=== PATIENT | male | born 1955 | race Caucasian/White ===

== ENCOUNTER 2016-10-31 06:55 | Inpatient (IN) | payer MEDICAID, OTHER ==
[2016-10-31] MEDS ORDERED: Morphine 4 mg/ml ISec IVP STA (07:43)
[2016-10-31] MEDS ORDERED: Sodium Chloride 0.9% 500 ML IV STA (07:43)
--- NOTE | 2016-10-31 07:46 | ED PDOC ---
Arrival/HPI - General Chief Complaint: Abdominal Pain Time Seen by Provider: 10/31/16 07:32 Historian: Patient - History of Present Illness Narrative History of Present Illness (Text): 10/31/16 07:40 Yareli Hendrix is a 60 year old male whose past medical history includes diabetes, presents to the Emergency department complaining of diffused abdominal pain for the past two days. Patient reports the pain is intermittent and becomes worse after eating. Patient denies chest pain, shortness of breath, headache, fever, chills, cough, nausea, vomiting, diarrhea, changes in bowel habits, dysuria, hematuria, frequency, flank pain, testicular pain or penile discharge. PMD: Dr. Bhakta Time/Duration: < week (2 days) Symptom Onset: Sudden Symptom Course: Intermittent Modifying Factors (Text): Pain is worse after eating Associated Symptoms (Text): None Past Medical History - Provider Review Nursing Documentation Reviewed: Yes - Infectious Disease Hx of Infectious Diseases: None - Neurological Hx Dementia: Yes - Endocrine/Metabolic Hx Diabetes Mellitus Type 1: Yes - Psychiatric Hx Depression: No Hx Emotional Abuse: No Hx Physical Abuse: No Hx Substance Use: No - Past Surgical History Past Surgical History: No Previous - Suicidal Assessment Feels Threatened In Home Enviroment: No Family/Social History - Physician Review Nursing Documentation Reviewed: Yes Family/Social History: Unknown Family HX Smoking Status: Never Smoked Hx Alcohol Use: No Hx Substance Use: No Allergies/Home Meds Allergies/Adverse Reactions: Allergies No Known Allergies Allergy (Verified 10/31/16 07:36) Home Medications: Home Meds Medication Instructions Recorded Confirmed Gabapentin [Neurontin] 500 mg PO TID 10/31/16 10/31/16 Metformin HCl [Glucophage] 1,500 mg PO DAILY 10/31/16 10/31/16 Review of Systems - Review of Systems Constitutional: absent: Fevers Eyes: absent: Vision Changes ENT: absent: Rhinorrhea Respiratory: absent: SOB Cardiovascular: absent: Chest Pain Gastrointestinal: Abdominal Pain. absent: Stool Changes, Diarrhea, Vomiting Genitourinary Male: absent: Dysuria Musculoskeletal: absent: Back Pain Neurological: absent: Headache Endocrine: absent: Diaphoresis Psychiatric: absent: Anxiety Physical Exam Vital Signs Temp Pulse Resp BP Pulse Ox 10/31/16 07:33 98.2 F 94 H 16 149/99 H 99 Temperature: Afebrile Blood Pressure: Hypertensive Pulse: Tachycardic Respiratory Rate: Normal Appearance: Positive for: Well-Appearing, Non-Toxic, Comfortable Pain Distress: None Mental Status: Positive for: Alert and Oriented X 3 - Systems Exam Head: Present: Atraumatic, Normocephalic Pupils: Present: PERRL Extroacular Muscles: Present: EOMI Conjunctiva: Present: Normal Mouth: Present: Moist Mucous Membranes Neck: Present: Normal Range of Motion Respiratory/Chest: Present: Clear to Auscultation, Good Air Exchange. No: Respiratory Distress, Accessory Muscle Use Cardiovascular: Present: Regular Rate and Rhythm, Normal S1, S2. No: Murmurs Abdomen: Present: Tenderness (RUQ and RLQ), Normal Bowel Sounds. No: Distention , Peritoneal Signs, Rebound, Guarding Upper Extremity: Present: Normal Inspection. No: Cyanosis, Edema Lower Extremity: Present: Normal Inspection. No: Edema Neurological: Present: GCS=15, CN II-XII Intact, Speech Normal Skin: Present: Warm, Dry, Normal Color. No: Rashes Psychiatric: Present: Alert, Oriented x 3, Normal Insight, Normal Concentration Medical Decision Making ED Course and Treatment: 10/31/16 07:40 Impression: 60 year old male with diffuse abdominal pain. Differential Diagnosis included but are not limited to: pancreatitis vs. appendicitis vs. small bowel obstruction vs. UTI Plan: -- EKG -- CT Abdomen and Pelvis -- Labs -- Urinalysis -- Morphine, Zofran, and Sodium Chloride -- Reassess and disposition Progress Notes: EKG: Ordered, reviewed, and independently interpreted the EKG. Rate : 91 BPM Rhythm : NSR Interpretation : Left anterior fascicular block. 10/31/16 10:10 CT Abdomen and Pelvis with contrast: Creator : Triston Reyez MD FINDINGS: LOWER THORAX: Unremarkable. LIVER: Unremarkable. No gross lesion or ductal dilatation. GALLBLADDER AND BILE DUCTS: Unremarkable. PANCREAS: Unremarkable. No gross lesion or ductal dilatation. SPLEEN: Unremarkable. ADRENALS: Unremarkable. No mass. KIDNEYS AND URETERS:Unremarkable. No hydronephrosis. No solid mass. VASCULATURE: Unremarkable. No aortic aneurysm. BOWEL: Unremarkable. No obstruction. No gross mural thickening. APPENDIX: Normal appendix. PERITONEUM: Unremarkable. No free fluid. No free air. LYMPH NODES: Unremarkable. No enlarged lymph nodes. BLADDER: Unremarkable. REPRODUCTIVE: Unremarkable. BONES: No acute fracture. OTHER FINDINGS: None. IMPRESSION: No acute finding 10/31/16 10:[address] Monk who is aware of plan and accepts patient to med/ sx for pancreatitis. - Lab Interpretations Lab Results: 10/31/16 08:00 10/31/16 08:00 Lab Results 10/31/16 10:00: Urine Color Straw, Urine Appearance Clear, Urine pH 6.5, Ur Specific [place] <= 1.005, Urine Protein Negative, Urine Glucose (UA) 100 H, Urine Ketones Negative, Urine Blood Small H, Urine Nitrate Negative, Urine Bilirubin Negative, Urine Urobilinogen 0.2, Ur Leukocyte Esterase Negative, Urine RBC 1 - 3, Urine WBC Negative, Ur Epithelial Cells 0 - 2, Urine Bacteria Neg 10/31/16 08:00: Sodium 138, Potassium 4.0, Chloride 101, Carbon Dioxide 27, Anion Gap 14, BUN 17, Creatinine 0.8, Est GFR ( Amer) > 60, Est GFR (Non- Af Amer) > 60, Random Glucose 242 H, Calcium 10.9 H, Phosphorus 2.4 L, Magnesium 1.9, Total Bilirubin 0.5, AST 19, ALT 24, Alkaline Phosphatase 76, Total Protein 7.5, Albumin 4.3, Globulin 3.2, Albumin/Globulin Ratio 1.3, Lipase 2379 H 10/31/16 08:00: WBC 8.2, RBC 5.24, Hgb 14.4, Hct 42.2, MCV 80.5, MCH 27.5, MCHC 34.1, RDW 13.5, Plt Count 189, MPV 10.7, Gran % 70.4 H, Lymph % (Auto) 20.1 L, [place] % (Auto) 7.4 H, Eos % (Auto) 1.9, Baso % (Auto) 0.2, Gran # 5.78, Lymph # 1.7, [place] # 0.6, Eos # 0.2, Baso # 0.02 I have reviewed the lab results: Yes - RAD Interpretation Radiology Orders: 10/31/16 07:46 ABD & PELVIS IV CONTRAST ONLY [CT] Stat Aids Nurse: Radiologist - EKG Interpretation Interpreted by ED Physician: Yes Type: 12 lead EKG - Medication Orders Current Medication Orders: Discontinued Medications Home Med (*Refrigerator Open) Confirm Administered Dose 1 unit XX .STK-MED ONE Stop: 10/31/16 07:16 Sodium Chloride (Sodium Chloride 0.9%) 500 mls @ 999 mls/hr IV .Q31M STA Stop: 10/31/16 08:13 Last Admin: 10/31/16 07:51 Dose: 999 mls/hr Iohexol (Omnipaque 350 100 Ml) Confirm Administered Dose 350 mg .ROUTE .STK-MED ONE Stop: 10/31/16 08:51 Morphine Sulfate (Morphine) 4 mg IVP STAT STA Stop: 10/31/16 07:44 Last Admin: 10/31/16 07:52 Dose: 4 mg Ondansetron HCl (Zofran Inj) 4 mg IVP STAT STA Stop: 10/31/16 07:44 Last Admin: 10/31/16 07:51 Dose: 4 mg - Scribe Statement The provider has reviewed the documentation as recorded by the Scribe 10/31/2016 Hannah Pro Provider Adileneibclifton Attestation: All medical record entries made by the Adileneibclifton were at my direction and personally dictated by me. I have reviewed the chart and agree that the record accurately reflects my personal performance of the history, physical exam, medical decision making, and the department course for this patient. I have also personally directed, reviewed, and agree with the discharge instructions and disposition. Disposition/Present on Arrival - Present on Arrival Any Indicators Present on Arrival: No History of DVT/PE: No History of Uncontrolled Diabetes: No Urinary Catheter: No History of Decub. Ulcer: No History Surgical Site Infection Following: None - Disposition Have Diagnosis and Disposition been Completed?: Yes Diagnosis: Pancreatitis Disposition: HOSPITALIZED Disposition Time: 10:20 Patient Plan: Admission Condition: GOOD
[2016-10-31 08:22] LABS: BASO # 0.02 K/mm3 (0.0-2.0); BASO % 0.2 % (0.0-3.0); EOS # 0.2 (0.0-0.7); EOS % 1.9 % (1.5-5.0); GRAN # 5.78 (1.4-6.5); GRAN % 70.4 % (50.0-68.0); HEMOGLOBIN 14.4 g/dL (14.0-18.0); LYMPH # 1.7 (1.2-3.4); LYMPH % 20.1 % (22.0-35.0); MEAN CELL VOLUME 80.5 fl (80.0-105.0); MEAN CORPUSCULAR HEMOGLOBIN 27.5 pg (25.0-35.0); MEAN CORPUSCULAR HGB CONC 34.1 g/dl (31.0-37.0); MEAN PLATELET VOLUME 10.7 fl (7.0-11.0); MONO # 0.6 (0.1-0.6); MONO % 7.4 % (1.0-6.0); PLATELET COUNT 189 10^3/uL (120.0-450.0); RBC 5.24 10^6/uL (3.5-6.1); RED CELL DISTRIBUTION WIDTH 13.5 % (11.5-14.5); WHITE BLOOD COUNT 8.2 10^3/ul (4.5-11.0)
[2016-10-31 08:29] LABS: ALB/GLOB RATIO 1.3 (1.1-1.8); ALBUMIN 4.3 g/dL (3.0-4.8); ALT/SGPT 24 U/L (7-56); AST/SGOT 19 U/L (15-59); BLOOD UREA NITROGEN 17 mg/dL (7-21); CALCIUM 10.9 mg/dL (8.4-10.5); GFR AFRICAN-AMERICAN > 60; GFR NON-AFRICAN AMERICAN > 60; MAGNESIUM 1.9 mg/dL (1.7-2.2)
[2016-10-31 08:36] LABS: LIPASE 2379 U/L (23-300)
[2016-10-31] MEDS ORDERED: Iohexol 350 MG/100 ML VIAL ONE (08:50)
--- NOTE | 2016-10-31 10:07 | CT ---
PROCEDURE: CT Abdomen and Pelvis with contrast HISTORY: abdominal pain COMPARISON: None. TECHNIQUE: Contrast dose: 100 cc of Omni 350 Radiation dose: Total exam DLP = 424 mGy-cm. This CT exam was performed using one or more of the following dose reduction techniques: Automated exposure control, adjustment of the mA and/or kV according to patient size, and/or use of iterative reconstruction technique. FINDINGS: LOWER THORAX: Unremarkable. LIVER: Unremarkable. No gross lesion or ductal dilatation. GALLBLADDER AND BILE DUCTS: Unremarkable. PANCREAS: Unremarkable. No gross lesion or ductal dilatation. SPLEEN: Unremarkable. ADRENALS: Unremarkable. No mass. KIDNEYS AND URETERS: Unremarkable. No hydronephrosis. No solid mass. VASCULATURE: Unremarkable. No aortic aneurysm. BOWEL: Unremarkable. No obstruction. No gross mural thickening. APPENDIX: Normal appendix. PERITONEUM: Unremarkable. No free fluid. No free air. LYMPH NODES: Unremarkable. No enlarged lymph nodes. BLADDER: Unremarkable. REPRODUCTIVE: Unremarkable. BONES: No acute fracture. OTHER FINDINGS: None. IMPRESSION: No acute finding
[2016-10-31 10:17] LABS: PH,URINE 6.5 (4.7-8.0); URINE BILIRUBIN NEGATIVE (NEGATIVE); URINE BLOOD SMALL (NEGATIVE); URINE GLUCOSE (UA) 100 mg/dL (NEGATIVE); URINE LEUKOCYTE ESTERASE NEGATIVE Leu/uL (NEGATIVE); URINE NITRATE NEGATIVE (NEGATIVE); URINE PROTEIN NEGATIVE mg/dL (<30 mg/dL); URINE UROBILINOGEN 0.2 E.U./dL (<1 E.U./dL)
[2016-10-31 10:18] LABS: URINE APPEARANCE CLEAR (CLEAR); URINE COLOR STRAW (YELLOW)
[2016-10-31 10:25] LABS: URINE BACTERIA NEG (NEG); URINE EPITHELIAL CELLS 0 - 2 /hpf (0-5); URINE WBC NEGATIVE /hpf (0-6)
[2016-10-31] MEDS ORDERED: Sodium Chloride 0.9% 100 ML IV SCH (11:21)
[2016-10-31] MEDS ORDERED: Morphine 4 mg/ml ISec IVP PRN (11:25)
--- NOTE | 2016-10-31 11:30 | CP.PCM.HP ---
<LAURA THORPE - Last Filed: 10/31/16 18:30> History of Present Illness - History of Present Illness History of Present Illness: CC: Abdominal Pain HPI: Mr. Hendrix is a 60 year old male with a past medical history significant for DM2 who presented to the ED with complaints of abdominal pain. Patient states that the pain began late on Monday evening and has increased in intensity gradually since that time. He describes the pain as sharp and non- radiating. Patient states that is mildy exacerbated with PO intake and reports no alleviating factors. Patient reports that he has had this type of pain before but that it has never lasted this long or ever been at this level of intensity. Patient denies any associated N/V or diarrhea but does endorse anorexia since yesterday due to the pain. A lipase drawn in the ED was found to be elevated at 2379. A CT abdomen/pelvis done in the ED showed no acute findings. Currently patient reports that his pain has not changed in intensity, quality or location. Patient denies any headache, dizziness, fever, chills, shortness of breath, cough, chest pain, palpitations, N/V, diarrhea, diarrhea or any urinary symptoms. PMH: Alcohol Abuse and DM2 PSH: Denied Family: Father-Liver Cancer; Brother-Pancreatic Cancer Social: Current one pack per day smoker with a 50 pack year smoking history, former abuser of alcohol but quit 10 years, denies any illicit drug use Allergies: Denied Home Medications: Metformin Present on Admission - Present on Admission Any Indicators Present on Admission: No Review of Systems - Review of Systems Review of Systems: Please refer to HPI Past Patient History - Infectious Disease Hx of Infectious Diseases: None - Past Social History Smoking Status: Never Smoked - NEUROLOGICAL Hx Dementia: Yes - ENDOCRINE/METABOLIC Hx Diabetes Mellitus Type 1: Yes - PSYCHIATRIC Hx Depression: No Hx Emotional Abuse: No Hx Physical Abuse: No Hx Substance Use: No Meds Home Medications: Home Medication List Medication Instructions Recorded Confirmed Type Pantoprazole [Protonix] 40 mg PO DAILY #14 ect 11/02/16 Rx Allergies/Adverse Reactions: Allergies Allergy/AdvReac Type Severity Reaction Status Date / Time No Known Allergies Allergy Verified 10/31/16 07:36 Physical Exam - Constitutional Appears: No Acute Distress - Head Exam Head Exam: NORMAL INSPECTION, NORMOCEPHALIC - Eye Exam Eye Exam: EOMI, Normal appearance, PERRL Pupil Exam: NORMAL ACCOMODATION - ENT Exam ENT Exam: Mucous Membranes Moist, Normal Exam - Neck Exam Neck exam: Positive for: Full Rom, Normal Inspection. Negative for: Lymphadenopathy - Respiratory Exam Respiratory Exam: Clear to Auscultation Bilateral, NORMAL BREATHING PATTERN. absent: Rales, Rhonchi, Wheezes, Respiratory Distress - Cardiovascular Exam Cardiovascular Exam: REGULAR RHYTHM, RRR, +S1, +S2. absent: Tachycardia, Systolic Murmur - GI/Abdominal Exam GI & Abdominal Exam: Normal Bowel Sounds, Tenderness. absent: Distended, Firm, Guarding, Hernia Additional comments: Periumbilical and RUQ TTP; [place] sign positive - Exam Exam: absent: Bladder Distension - Extremities Exam Extremities exam: Positive for: normal capillary refill, normal inspection, pedal pulses present. Negative for: calf tenderness, pedal edema - Neurological Exam Neurological exam: Alert, Oriented x3 - Psychiatric Exam Psychiatric exam: Normal Affect, Normal Mood - Skin Skin Exam: Dry, Intact, Normal Color, Warm Results - Vital Signs Recent Vital Signs: Last Vital Signs Temp 98.2 F 10/31/16 07:33 Pulse 83 10/31/16 10:33 Resp 18 10/31/16 10:33 BP 140/86 10/31/16 10:33 Pulse Ox 100 10/31/16 10:33 - Labs Result Diagrams: 10/31/16 08:00 10/31/16 08:00 Assessment & Plan - Assessment and Plan (Free Text) Assessment: 60 year old male with a past medical history significant for DM2 who presented to the ED with complaints of abdominal pain. Lipase was found to be elevated at 2379 in the ED. Plan: 1. Acute Pancreatitis -etiologies considered: Biliary Obstruction, hypertriglyceridemia and alcohol induced -IVF: Normal Saline at 200mls/hr -Morphine 2mg Q4H for pain control -Gallbladder/Hepatic Ultrasound and Lipid Panel pending -Zofran PRN for N/V -NPO Diet; Can advance as tolerated pending the results of Gallbladder/Hepatic US 2. DM Type 2 -hold metformin -SSI-Low -Fingerstick blood sugar ACHS 3. Tobacco Abuse -Nicotine Patch 7mg/24hr -Cessation advised 4. GI/DVT Prophylaxis -Protonix/scd's Patient seen and case discussed with attending, Dr. Tello. - Date & Time Date: 10/31/16 Time: 11:05 Decision To Admit - Pt Status Changed To: Hospital Disposition Of: Inpatient Admission - Admit Certification Admit to Inpatient:: After my assessment, the patient will require hospitalization for at least two midnights. This is because of the severity of symptoms shown, intensity of services needed, and/or the medical risk in this patient being treated as an outpatient. - . Bed Request Type: Med/Surg <Genoveva Rodriguez - Last Filed: 11/02/16 14:30> History of Present Illness - History of Present Illness History of Present Illness: I was Ed attending of record but HPI written by resident and reviewed by Dr. Tello. I was not attendind for inpatient evaluation, treatment and course Results - Vital Signs Recent Vital Signs: Last Vital Signs Temp 98.2 F 10/31/16 07:33 Pulse 83 10/31/16 10:33 Resp 18 10/31/16 10:33 BP 140/86 10/31/16 10:33 Pulse Ox 100 10/31/16 10:33 - Labs Result Diagrams: 11/02/16 07:00 11/02/16 07:00
[2016-10-31] MEDS: Insulin Reg-LOW-Coverage SC SCH ×3 (12:41→21:30)
[2016-10-31] MEDS ORDERED: Insulin Regular 1 UNITS/0.01 ML ML ONE (12:45)
[2016-10-31] MEDS ORDERED: Sodium Chloride 0.9% 1,000 ML IV SCH (12:57)
--- NOTE | 2016-10-31 13:43 | RAD ---
HISTORY: Pancreatitis COMPARISON: October 31, 2016. CT abdomen and pelvis. FINDINGS: BOWEL: Constipation without fecal impaction or obstruction. BONES: Normal. OTHER FINDINGS: Contrast in the collecting systems and distended bladder from prior CT scan IMPRESSION: No acute findings related to/accounting for the clinical presentation. Additional benign and/or incidental findings described above.
[2016-10-31] MEDS ORDERED: Sodium Chloride 0.9% 200 ML IV SCH (13:59)
[2016-10-31 14:33] VITALS: BMI 22.1
[2016-10-31] MEDS ORDERED: Pneumococcal 23-Valent Vaccine IM ONE (14:33)
--- NOTE | 2016-10-31 15:57 | CARD ---
APPROVED REPORT EKG Measurement Heart [id number] DC [id number] <Conclusion> Normal sinus rhythm Left anterior fascicular block Inferior infarct, age undetermined Cannot rule out Anteroseptal infarct, age undetermined Abnormal ECG
[2016-10-31 16:00] VITALS: RESP 20
--- NOTE | 2016-10-31 22:27 | US ---
EXAM: US Abdomen Limited, Right Upper Quadrant CLINICAL HISTORY: 60 years old, male; Pain; Abdominal pain; Additional info: R/O gallstones, pancreatitis TECHNIQUE: Real-time ultrasound of the right upper quadrant with image documentation. COMPARISON: CT - ABD PELVIS IV CONTRAST ONLY 10/31/2016 8:52:58 AM FINDINGS: Liver: Normal echogenicity. No mass. No intrahepatic bile duct dilatation. Gallbladder: No gallstones. No wall thickening. No pericholecystic fluid. No sonographic Kraft's sign. Common bile duct: No dilatation. No stones. Pancreas: Equivocal mild heterogeneity head of pancreas. IMPRESSION: 1. Equivocal mild heterogeneity head of pancreas. Consider MRI. Correlate with laboratory values. 2. Incidental/non-acute findings are described above.
[2016-11-01] MEDS: Sodium Chloride 0.9% 1,000 ML IV SCH ×3 (01:39→22:06)
[2016-11-01 07:42] LABS: BASO # 0.01 K/mm3 (0.0-2.0); BASO % 0.1 % (0.0-3.0); EOS # 0.2 (0.0-0.7); EOS % 2.4 % (1.5-5.0); GRAN # 4.91 (1.4-6.5); GRAN % 70.4 % (50.0-68.0); HEMOGLOBIN 14.3 g/dL (14.0-18.0); LYMPH # 1.4 (1.2-3.4); LYMPH % 20.5 % (22.0-35.0); MEAN CORPUSCULAR HEMOGLOBIN 26.8 pg (25.0-35.0); MEAN CORPUSCULAR HGB CONC 33.5 g/dl (31.0-37.0); MEAN PLATELET VOLUME 11.6 fl (7.0-11.0); MONO # 0.5 (0.1-0.6); MONO % 6.6 % (1.0-6.0); PLATELET COUNT 184 10^3/uL (120.0-450.0); RBC 5.34 10^6/uL (3.5-6.1); RED CELL DISTRIBUTION WIDTH 13.5 % (11.5-14.5)
[2016-11-01 08:04] LABS: ALB/GLOB RATIO 1.2 (1.1-1.8); ALBUMIN 3.6 g/dL (3.0-4.8); ALT/SGPT 29 U/L (7-56); AST/SGOT 16 U/L (15-59); BLOOD UREA NITROGEN 10 mg/dL (7-21); CALCIUM 10.1 mg/dL (8.4-10.5); GFR AFRICAN-AMERICAN > 60; GFR NON-AFRICAN AMERICAN > 60; HDL CHOLESTEROL 26 mg/dL (29-60); LDL CHOLESTEROL 120 mg/dL (0-129)
[2016-11-01] MEDS: Insulin Reg-LOW-Coverage SC SCH ×4 (08:27→22:05)
[2016-11-01 17:10] VITALS: PULSE 58
[2016-11-01] MEDS: Morphine 2 mg/ml ISec IVP PRN (20:11)
--- NOTE | 2016-11-01 20:36 | CP.PCM.PN ---
<LAURA THORPE - Last Filed: 11/01/16 20:32> Subjective - Date & Time of Evaluation Date of Evaluation: 11/01/16 Time of Evaluation: 10:00 - Subjective Subjective: MEDICINE PROGRESS NOTE: Pt seen and assessed at bedside. Pt had no new complaints. Pt denies any headache, dizziness, fever, chills, SOB, cough, chest pain, palpitations, abdominal pain, N/V, diarrhea or any urinary symptoms. Objective - Vital Signs/Intake and Output Vital Signs (last 24 hours): Temp Pulse Resp BP Pulse Ox 98.4 F 58 L 20 149/88 100 11/01/16 16:30 11/01/16 16:30 11/01/16 16:30 11/01/16 16:30 11/01/16 16:30 - Medications Medications: Current Medications Sodium Chloride (Sodium Chloride 0.9%) 1,000 mls @ 200 mls/hr IV .Q5H [facility] Last Admin: 11/01/16 06:10 Dose: 200 mls/hr Insulin Human Regular (Humulin R Low) 0 units SC ACHS [facility] PRN Reason: Protocol Last Admin: 11/01/16 16:59 Dose: Not Given Morphine Sulfate (Morphine) 2 mg IVP Q4H PRN PRN Reason: Pain, moderate (4-7) Last Admin: 11/01/16 20:11 Dose: 2 mg Nicotine (Nicoderm Cq) 1 patch TD DAILY [facility] Last Admin: 11/01/16 10:47 Dose: 1 patch Ondansetron HCl (Zofran Inj) 4 mg IVP Q4H PRN PRN Reason: Nausea/Vomiting Pantoprazole Sodium (Protonix Inj) 40 mg IVP Q12 [facility] Last Admin: 11/01/16 09:28 Dose: 40 mg - Labs Labs: 11/01/16 07:00 11/01/16 07:00 - Constitutional Appears: Non-toxic, No Acute Distress - Head Exam Head Exam: ATRAUMATIC, NORMOCEPHALIC - Eye Exam Eye Exam: EOMI, Normal appearance, PERRL - ENT Exam ENT Exam: Mucous Membranes Moist, Normal Exam - Neck Exam Neck Exam: Full ROM. absent: Lymphadenopathy - Respiratory Exam Respiratory Exam: Clear to Ausculation Bilateral, NORMAL BREATHING PATTERN. absent: Rales, Rhonchi, Wheezes, Respiratory Distress - Cardiovascular Exam Cardiovascular Exam: REGULAR RHYTHM, RRR, +S1, +S2. absent: Tachycardia - GI/Abdominal Exam GI & Abdominal Exam: Soft, Normal Bowel Sounds. absent: Distended, Firm, Guarding, Tenderness - Exam Exam: absent: Bladder Distension - Extremities Exam Extremities Exam: Normal Capillary Refill, Normal Inspection. absent: Calf Tenderness, Pedal Edema - Neurological Exam Neurological Exam: Alert, Awake, Normal Gait, Oriented x3 - Psychiatric Exam Psychiatric exam: Normal Affect, Normal Mood - Skin Skin Exam: Dry, Intact, Normal Color, Warm Assessment and Plan - Assessment and Plan (Free Text) Assessment: 60 year old male with a past medical history significant for DM2 who presented to the ED with complaints of abdominal pain. Lipase was found to be elevated at 2379 in the ED and is now downtrending. Plan: 1. Acute Pancreatitis -etiologies considered: Biliary obstruction, hypertriglyceridemia, alcohol induced and tobacco use -IVF: Normal Saline at 200mls/hr -Morphine 2mg Q4H for pain control -Gallbladder/Hepatic Ultrasound and Lipid Panel both showing no abnormalities -Zofran PRN for N/V -Clear Liquid Diet; Can advance as tolerated 2. DM Type 2 -hold metformin -SSI-Low -Fingerstick blood sugar ACHS 3. Tobacco Abuse -Nicotine Patch 7mg/24hr -Cessation advised 4. GI/DVT Prophylaxis -Protonix/scd's Patient seen and case discussed with attending, Dr. Joseluis Faulkner. <Joseluis Faulkner B - Last Filed: 11/01/16 21:49> Objective - Vital Signs/Intake and Output Vital Signs (last 24 hours): Temp Pulse Resp BP Pulse Ox 98.4 F 58 L 20 149/88 100 11/01/16 16:30 11/01/16 16:30 11/01/16 16:30 11/01/16 16:30 11/01/16 16:30 - Medications Medications: Current Medications Sodium Chloride (Sodium Chloride 0.9%) 1,000 mls @ 200 mls/hr IV .Q5H [facility] Last Admin: 11/01/16 06:10 Dose: 200 mls/hr Insulin Human Regular (Humulin R Low) 0 units SC ACHS [facility] PRN Reason: Protocol Last Admin: 11/01/16 16:59 Dose: Not Given Morphine Sulfate (Morphine) 2 mg IVP Q4H PRN PRN Reason: Pain, moderate (4-7) Last Admin: 11/01/16 20:11 Dose: 2 mg Nicotine (Nicoderm Cq) 1 patch TD DAILY [facility] Last Admin: 11/01/16 10:47 Dose: 1 patch Ondansetron HCl (Zofran Inj) 4 mg IVP Q4H PRN PRN Reason: Nausea/Vomiting Pantoprazole Sodium (Protonix Inj) 40 mg IVP Q12 [facility] Last Admin: 11/01/16 09:28 Dose: 40 mg - Labs Labs: 11/01/16 07:00 11/01/16 07:00 Attending/Attestation - Attestation I have personally seen and examined this patient.: Yes I have fully participated in the care of the patient.: Yes I have reviewed all pertinent clinical information, including history, physical exam and plan: Yes Notes (Text): I have seen and examined the patient at bedside. Agree with the above note with the following additions/ exceptions: Briefly this is 60 year old male with history of DM-2 on metformin, tobacco use, former alcohol abuser who presented with abdominal pain which is probably due to acute pancreatitis due to unknown cause. There are no visible gall stones on US, no recent history of alcohol abuse, TG <500 . This is probably his first episode of pancreatitis. His abdominal pain has improved and he is able to tolerate clears. Will advance his diet to full liquid. Tobacco cessation counselling provided. Upon discharge patient will follow up with Dr Luke. Dr Joseluis Faulkner
[2016-11-02] MEDS: Morphine 2 mg/ml ISec IVP PRN (01:02)
[2016-11-02] MEDS: Sodium Chloride 0.9% 1,000 ML IV SCH ×2 (03:09→08:55)
[2016-11-02 07:41] LABS: BASO # 0.02 K/mm3 (0.0-2.0); BASO % 0.4 % (0.0-3.0); EOS # 0.2 (0.0-0.7); EOS % 3.2 % (1.5-5.0); GRAN # 3.17 (1.4-6.5); GRAN % 59.5 % (50.0-68.0); HEMOGLOBIN 12.3 g/dL (14.0-18.0); LYMPH # 1.6 (1.2-3.4); LYMPH % 29.6 % (22.0-35.0); MEAN CELL VOLUME 80.7 fl (80.0-105.0); MEAN CORPUSCULAR HEMOGLOBIN 26.4 pg (25.0-35.0); MEAN CORPUSCULAR HGB CONC 32.7 g/dl (31.0-37.0); MEAN PLATELET VOLUME 10.8 fl (7.0-11.0); MONO # 0.4 (0.1-0.6); MONO % 7.3 % (1.0-6.0); PLATELET COUNT 158 10^3/uL (120.0-450.0); RBC 4.66 10^6/uL (3.5-6.1); RED CELL DISTRIBUTION WIDTH 13.5 % (11.5-14.5); WHITE BLOOD COUNT 5.3 10^3/ul (4.5-11.0)
[2016-11-02 08:12] LABS: ALB/GLOB RATIO 1.2 (1.1-1.8); ALBUMIN 3.2 g/dL (3.0-4.8); ALT/SGPT 22 U/L (7-56); AST/SGOT 17 U/L (15-59); BLOOD UREA NITROGEN 7 mg/dL (7-21); CALCIUM 9.8 mg/dL (8.4-10.5); GFR AFRICAN-AMERICAN > 60; GFR NON-AFRICAN AMERICAN > 60
[2016-11-02] MEDS: Insulin Reg-LOW-Coverage SC SCH ×2 (08:54→12:18)
[2016-11-02 09:02] VITALS: BP 140/74; TEMP 98.2; O2SAT 97
== END 2016-11-02 15:57 | disposition home or self-care (01) | DRG 204 ==
LOC: ED 06:55 → ERH 10:19 → 3RSO 13:53
PROVIDERS: ADMIT Internal Medicine; ATTEND Hospitalist
DX: K85.90 Acute pancreatitis without necrosis or infection, unspecified (principal); E11.9 Type 2 diabetes mellitus without complications; F17.210 Nicotine dependence, cigarettes, uncomplicated; F10.21 Alcohol dependence, in remission; Z79.84 Long term (current) use of oral hypoglycemic drugs

== ENCOUNTER 2017-09-19 17:06 | Inpatient (IN) | payer MEDICAID ==
[2017-09-19 17:34] VITALS: BMI 23.2
[2017-09-19] MEDS ORDERED: Sodium Chloride 0.9% 1,000 ML IV STA ×2 (17:55→22:04)
--- NOTE | 2017-09-19 18:45 | ED PDOC ---
Arrival/HPI - General Chief Complaint: Back Pain Time Seen by Provider: 09/19/17 17:31 Historian: Patient - History of Present Illness Narrative History of Present Illness (Text): 09/19/17 18:42 61yr old male with hx of DM and smoking presents today with right sided chest pain that started yesterday at 7pm. pt states the pain came on suddenly. pt states the pain is worse with deep inspiration. pt states he has pain along the right side of the chest and right upper back. pt denies shortness of breath but states the pain is severe if he takes a deep breath. pt denies trauma or injury. pt denies abdominal pain. pt states no medications have been taken for pain at home. pt states he has had a cough for a few days. pt denies fever/ chills. pt states today he developed pain in the right anterior thigh which he describes as throbbing sensation as if he is being punched in the thigh. pt denies numbness, weakness, tingling in the extremities. pt denies low back pain. pt states his back pain is only the right upper back. no other compalints. Time/Duration: Other (yesterday at 7pm) Symptom Course: Unchanged Quality: Stabbing Severity Level: 7 Past Medical History - Provider Review Nursing Documentation Reviewed: Yes - Travel History Have you recently traveled outside [place] w/in the past 3 mons?: No - Infectious Disease Hx of Infectious Diseases: None - Tetanus Immunization Tetanus Immunization: Unknown - Neurological Hx Dementia: Yes - Endocrine/Metabolic Hx Diabetes Mellitus Type 1: Yes - Musculoskeletal/Rheumatological Hx Falls: No - Psychiatric Hx Depression: No Hx Emotional Abuse: No Hx Physical Abuse: No Hx Substance Use: No - Past Surgical History Past Surgical History: No Previous - Suicidal Assessment Feels Threatened In Home Enviroment: No Family/Social History - Physician Review Nursing Documentation Reviewed: Yes Family/Social History: Unknown Family HX Smoking Status: Never Smoked Hx Alcohol Use: No Hx Substance Use: No Allergies/Home Meds Allergies/Adverse Reactions: Allergies No Known Allergies Allergy (Verified 10/31/16 07:36) Home Medications: Home Meds Medication Instructions Recorded Confirmed Gabapentin [Neurontin] 500 mg PO TID 10/31/16 09/19/17 Metformin HCl [Glucophage] 1,500 mg PO DAILY 10/31/16 09/19/17 Review of Systems - Review of Systems Constitutional: absent: Fatigue, Fevers ENT: absent: Sore Throat, Sinus Congestion Respiratory: Cough, Other (pain with deep inspiration). absent: SOB Cardiovascular: Chest Pain (right sided) Gastrointestinal: absent: Abdominal Pain, Constipation, Diarrhea, Nausea, Vomiting Genitourinary Male: absent: Dysuria, Frequency, Hematuria Musculoskeletal: Arthralgias (right thigh pain), Back Pain. absent: Neck Pain Skin: absent: Rash, Pruritis Neurological: absent: Headache, Dizziness Psychiatric: absent: Suicidal Ideation Physical Exam Vital Signs Reviewed: Yes Vital Signs Temp Pulse Resp BP Pulse Ox 09/19/17 22:44 98 F 99 H 18 135/71 96 09/19/17 21:32 98 F 101 H 18 124/68 97 09/19/17 18:13 97.8 F 105 H 19 137/70 96 09/19/17 17:29 98.8 F 120 H 20 99 Temperature: Afebrile Blood Pressure: Normal Pulse: Tachycardic Respiratory Rate: Normal Appearance: Positive for: Well-Appearing, Non-Toxic, Comfortable Pain Distress: None Mental Status: Positive for: Alert and Oriented X 3 Finger Stick Blood Glucose: 222 - Systems Exam Head: Present: Atraumatic Neck: Present: Normal Range of Motion Respiratory/Chest: Present: Clear to Auscultation, Good Air Exchange. No: Respiratory Distress, Accessory Muscle Use Cardiovascular: Present: Normal S1, S2, Tachycardic. No: Murmurs, Muffled Abdomen: No: Tenderness, Distention, Rebound, Guarding Back: Present: Normal Inspection, Other (+ right upper back tenderness over ribs ; no step offs, no crepitus. ). No: CVA Tenderness, Midline Tenderness Upper Extremity: Present: Normal Inspection, Normal ROM Lower Extremity: Present: Normal Inspection, NORMAL PULSES, Tenderness (+ ttp over anterior right thigh, no swelling, no erythema; no edema), Neurovascularly Intact. No: Swelling Neurological: Present: GCS=15, Speech Normal Skin: Present: Warm, Dry, Normal Color. No: Rashes Psychiatric: Present: Alert, Oriented x 3 Medical Decision Making ED Course and Treatment: 09/19/17 19: 61-year-old male with a one-day history of right sided chest pain and right- sided back pain worse with deep inspiration Patient is nontoxic well appearing with stable vital signs. pt was seen and evaluated by dr. Bentley at [facility]. CBC: wnl CMP wnl Lipase wnl Urinalysis: + BLOOD CAT scan: FINDINGS: Pulmonary arteries: The main pulmonary trunk, right/left main pulmonary arteries , and the proximal lobar branches demonstrate no definite intraluminal filling defect to suggest pulmonary embolism. Aorta: Mural thrombus is identified involving the descending thoracic aorta, without aneurysmal dilatation. Lungs: Biapical bullae are visualized, right side greater than left. Emphysematous changes are visualized bilaterally, which are predominantly centrilobular. There is a consolidation within the azygous lobe posteriorly, suggestive of atelectatic change or infiltrate. Dependent groundglass density infiltrates and atelectatic changes are seen bilaterally. An azygos fissure is visualized, which contains the azygous vein. Atelectatic change or parenchymal scarring is visualized at the right lung base. No lung mass is visualized. Pleural space: No significant effusion. No pneumothorax. Heart: No cardiomegaly. No significant pericardial effusion. Bones/joints: There is increased kyphosis of the thoracic spine. Degenerative changes are identified at multiple thoracic levels. There is a heterogeneously hypodense small lesion within the T9 vertebral body, suggestive of a hemangioma. Lymph nodes: Scattered mediastinal lymph nodes are identified, a few which are mildly enlarged. A subcarinal lymph node measures 1.3 x 1.0 cm. Small bilateral hilar lymph nodes are also visualized. IMPRESSION: 1. Mural thrombus is identified involving the descending thoracic aorta, without aneurysmal dilatation. 2. No acute pulmonary embolism. 3. Biapical bullae are visualized, right side greater than left. Emphysematous changes are visualized bilaterally, which are predominantly centrilobular. 4. There is a consolidation within the azygous lobe posteriorly, suggestive of atelectatic change or infiltrate. 5. Dependent groundglass density infiltrates and atelectatic changes are seen bilaterally. 6. Scattered nonspecific mediastinal lymph nodes are identified, a few which are mildly enlarged. Small bilateral hilar lymph nodes are also visualized. 7. Additional CT findings described above. EXAM: CT Angiography Abdomen and Pelvis With Intravenous Contrast Aorta: There is no aneurysm or dissection of the aorta. There is atherosclerotic calcification of the abdominal aorta. Celiac trunk and mesenteric arteries: There is mild narrowing or stenosis of the proximal celiac artery. There is no significant stenosis of the superior mesenteric artery. The inferior mesenteric artery is patent, without occlusion. Renal arteries: There is approximately 50% stenosis of the proximal right renal artery. There is no significant stenosis or occlusion of the left renal artery. Iliac arteries: Mural thrombus and dissection flap are visualized within the left common iliac artery. Atherosclerosis and mural thrombus are identified the involving the iliac arteries bilaterally. There is approximately 50% stenosis of the right common and external iliac arteries. Stenoses are visualized of the left external and bilateral internal iliac arteries. Other arteries: There is a proximally 70% stenosis of the bilateral superficial femoral arteries proximally. Additional stenoses are identified of the bilateral proximal common femoral and deep femoral arteries, with atherosclerosis and mural thrombus. ABDOMEN: Liver: Scattered enhancing foci or lesions are identified within the liver, which are nonspecific. These may represent atypical hemangiomas, although additional enhancing pathology cannot be excluded. One of the larger lesions is seen within the right hepatic lobe measuring 1.3 x 0.8 cm. These findings are new compared to the prior study. Gallbladder and bile ducts: No calcified stones. Pancreas: No ductal dilation. No mass. Spleen: No splenomegaly. Adrenals: No mass. Kidneys and ureters: No hydronephrosis. No solid mass. Stomach and bowel: There is mild gaseous distention of the rectum. Moderate fecal material is identified within the colon. PELVIS: Appendix: No findings to suggest acute appendicitis. Bladder: No mass. Reproductive: The prostate is mildly enlarged. Small calcifications are identified within the prostate. ABDOMEN and PELVIS: Intraperitoneal space: Within the right side of the abdomen, there is a peripherally calcified nodular density identified measuring 1.7 x 1.3 cm. A similar finding is visualized on the prior study. No free air. Bones/joints: Hypertrophic degenerative changes are noted within the spine. Lymph nodes: No enlarged lymph nodes. IMPRESSION: 1. There is no aneurysm or dissection of the aorta. 2. 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 In retrospect, this appears to be chronic. 3. Atherosclerosis and mural thrombus are identified the involving the iliac arteries bilaterally. There is approximately 50% stenosis of the right common and external iliac arteries. Stenoses are visualized of the left external and bilateral internal iliac arteries. 4. There is mild narrowing or stenosis of the proximal celiac artery. 5. There is approximately 50% stenosis of the proximal right renal artery. 6. There is a proximally 70% stenosis of the bilateral superficial femoral arteries proximally. Additional stenoses are identified of the bilateral proximal common femoral and deep femoral arteries. 7. Scattered enhancing foci or lesions are identified within the liver, which are nonspecific. These may represent atypical hemangiomas, although additional enhancing pathology cannot be excluded. These findings are new compared to the prior study. A follow-up CT or MRI with contrast is recommended. 8. The prostate is mildly enlarged. 9. Incidental/non-acute findings are described above Patient reassessment: PT resting comfortably; no distress. still slightly tachycardic. Discussed all results with patient in depth The cultures are pending Patient started on Rocephin and Zithromax for possible pneumonia Case discussed in depth with Dr. garvin': accepts admission to telemetry for pneumonia and chest pain all aspects of this case were discussed the attending of record. Impression: chest pain, leg pain admit to tele Reassessment Condition: Re-examined, Improving,but remains with symptoms - Lab Interpretations Lab Results: 09/19/17 19:11 09/19/17 19:11 Lab Results 09/19/17 19:46: Urine Color Yellow, Urine Appearance Slight-cloudy, Urine pH 6.0 , Ur Specific [place] 1.020, Urine Protein Negative, Urine Glucose (UA) 100 H, Urine Ketones Negative, Urine Blood Moderate H, Urine Nitrate Negative, Urine Bilirubin Negative, Urine Urobilinogen 0.2, Ur Leukocyte Esterase Negative, Urine RBC 15 - 20, Urine WBC 2 - 5, Ur Epithelial Cells 4 - 5, Amorphous Sediment Small 09/19/17 19:26: Phosphorus 2.3 L, Magnesium 2.0 09/19/17 19:11: WBC 10.0 D, RBC 5.33, Hgb 14.5 D, Hct 42.8, MCV 80.3, MCH 27.2 , MCHC 33.9, RDW 13.6, Plt Count 203, MPV 11.0, Gran % 70.8 H, Lymph % (Auto) 20.2 L, Sullivan % (Auto) 8.6 H, Eos % (Auto) 0.2 L, Baso % (Auto) 0.2, Gran # 7.04 H, Lymph # (Auto) 2.0, Sullivan # (Auto) 0.9 H, Eos # (Auto) 0.0, Baso # (Auto) 0.02 09/19/17 19:11: Sodium 142, Potassium 4.2, Chloride 105, Carbon Dioxide 25, Anion Gap 16, BUN 19, Creatinine 0.9, Est GFR ( Amer) > 60, Est GFR (Non- Af Amer) > 60, Random Glucose 101, Calcium 11.2 H, Total Bilirubin 0.6, AST 23, ALT 19, Alkaline Phosphatase 56, Lactate Dehydrogenase 378, Total Creatine Kinase 175, Troponin I < 0.01, Total Protein 7.5, Albumin 4.3, Globulin 3.3, Albumin/Globulin Ratio 1.3, Amylase 86, Lipase 138 09/19/17 17:32: POC Glucose (mg/dL) 222 H - RAD Interpretation Radiology Orders: 09/19/17 17:41 CHEST PORTABLE [RAD] Stat 09/19/17 18:53 ANGIO CHEST/ABDOMEN/PELVIS [CT] Stat 09/19/17 19:55 DUPLEX LOWER EXTRM VEIN BILAT [US] Stat - Medication Orders Current Medication Orders: Acetaminophen (Tylenol 325mg Tab) 650 mg PO Q6H PRN PRN Reason: Pain, moderate (4-7) Albuterol/Ipratropium (Duoneb 3 Mg/0.5 Mg (3 Ml) Ud) 3 ml IH [id number] LAURA Enoxaparin Sodium (Lovenox) 40 mg SC DAILY LAURA PRN Reason: Protocol Famotidine (Pepcid) 20 mg PO 1000,2200 LAURA Gabapentin (Neurontin) 500 mg PO TID LAURA PRN Reason: Protocol Insulin Human Regular (Humulin R Low) 0 units SC ACHS LAURA PRN Reason: Protocol Discontinued Medications Sodium Chloride (Sodium Chloride 0.9%) 1,000 mls @ 999 mls/hr IV .Q1H1M STA Stop: 09/19/17 18:55 Last Admin: 09/19/17 19:03 Dose: 999 mls/hr eMAR Start Stop Document 09/19/17 19:03 LA (Rec: 09/19/17 19:03 LA [email or web address]) Intravenous Solution Start Date 09/19/17 Start Time 19:03 End Date 09/19/17 End time 20:04 Total Infusion Time 61 Ceftriaxone Sodium (Rocephin 1 Gram Ivpb) 1 gm in 100 mls @ 200 mls/hr IVPB STAT STA PRN Reason: Protocol Stop: 09/19/17 22:33 Last Admin: 09/19/17 22:32 Dose: 200 mls/hr eMAR Start Stop Document 09/19/17 22:32 LA (Rec: 09/19/17 22:33 LA [email or web address] Intravenous Solution Start Date 09/19/17 Start Time 22:33 End Date 09/19/17 End time 23:03 Total Infusion Time 30 Sodium Chloride (Sodium Chloride 0.9%) 1,000 mls @ 999 mls/hr IV .Q1H1M STA Stop: 09/19/17 23:04 Last Admin: 09/19/17 22:33 Dose: 999 mls/hr eMAR Start Stop Document 09/19/17 22:33 LA (Rec: 09/19/17 22:34 LA [email or web address] Intravenous Solution Start Date 09/19/17 Start Time 22:33 End Date 09/19/17 End time 23:34 Total Infusion Time 61 Azithromycin (Zithromax 500mg In Ns) 500 mg in 250 mls @ 167 mls/hr IVPB STAT STA PRN Reason: Protocol Stop: 09/19/17 23:33 Last Admin: 09/19/17 23:48 Dose: 167 mls/hr eMAR Start Stop Document 09/19/17 23:48 LA (Rec: 09/19/17 23:48 LA [email or web address] Intravenous Solution Start Date 09/19/17 Start Time 23:48 End Date 09/19/17 Multivitamins/Vitamin C 10 ml/Thiamine HCl 100 mg/ Folic Acid 1 mg/ Sodium Chloride 1,011.2 mls @ 1,000 mls/hr IV .Q1H1M ONE Stop: 09/20/17 00:07 Disposition/Present on Arrival - Present on Arrival Any Indicators Present on Arrival: No History of DVT/PE: No History of Uncontrolled Diabetes: No Urinary Catheter: No History of Decub. Ulcer: No History Surgical Site Infection Following: None - Disposition Have Diagnosis and Disposition been Completed?: Yes Diagnosis: Chest pain, Pneumonia, Abnormal CT scan Disposition: HOSPITALIZED Disposition Time: 22:30 Patient Plan: Admission Patient Problems: Current Active Problems Problem Status Onset Chest pain Acute Pneumonia Acute Condition: FAIR
--- NOTE | 2017-09-19 18:49 | RAD ---
HISTORY: Chest pain. COMPARISON: No prior. FINDINGS: LUNGS: No active pulmonary disease. PLEURA: No significant pleural effusion identified, no pneumothorax apparent. CARDIOVASCULAR: No radiographic findings to suggest acute or significant cardiovascular disease. OSSEOUS STRUCTURES: No significant abnormalities. VISUALIZED UPPER ABDOMEN: Normal. OTHER FINDINGS: None. IMPRESSION: No active disease.
[2017-09-19 19:21] LABS: BASO # 0.02 K/mm3 (0.0-2.0); BASO % 0.2 % (0.0-3.0); EOS % 0.2 % (1.5-5.0); GRAN # 7.04 (1.4-6.5); GRAN % 70.8 % (50.0-68.0); HEMOGLOBIN 14.5 g/dL (14.0-18.0); LYMPH % 20.2 % (22.0-35.0); MEAN CELL VOLUME 80.3 fl (80.0-105.0); MEAN CORPUSCULAR HEMOGLOBIN 27.2 pg (25.0-35.0); MEAN CORPUSCULAR HGB CONC 33.9 g/dl (31.0-37.0); MONO # 0.9 (0.1-0.6); MONO % 8.6 % (1.0-6.0); RBC 5.33 10^6/uL (3.5-6.1); RED CELL DISTRIBUTION WIDTH 13.6 % (11.5-14.5)
[2017-09-19 19:26] LABS: ALB/GLOB RATIO 1.3 (1.1-1.8); ALBUMIN 4.3 g/dL (3.0-4.8); ALT/SGPT 19 U/L (7-56); AST/SGOT 23 U/L (17-59); BLOOD UREA NITROGEN 19 mg/dL (7-21); CALCIUM 11.2 mg/dL (8.4-10.5); GFR AFRICAN-AMERICAN > 60; GFR NON-AFRICAN AMERICAN > 60; LIPASE 138 U/L (23-300)
[2017-09-19 19:37] LABS: TROPONIN I < 0.01 ng/mL
[2017-09-19 19:51] LABS: URINE BILIRUBIN NEGATIVE (NEGATIVE); URINE BLOOD MODERATE (NEGATIVE); URINE GLUCOSE (UA) 100 mg/dL (NEGATIVE); URINE LEUKOCYTE ESTERASE NEGATIVE Leu/uL (NEGATIVE); URINE PROTEIN NEGATIVE mg/dL (<30 mg/dL); URINE UROBILINOGEN 0.2 E.U./dL (<1 E.U./dL)
[2017-09-19 20:43] LABS: URINE APPEARANCE SLIGHT-CLOUDY (CLEAR); URINE COLOR YELLOW (YELLOW)
[2017-09-19 20:45] LABS: URINE AMORPHOUS SEDIMENT SMALL; URINE RBC 15 - 20 /hpf (0-2)
--- NOTE | 2017-09-19 21:48 | CT ---
EXAM: CT Angiography Chest With Intravenous Contrast CLINICAL HISTORY: The patient age is 61 years old and is male; Pain; Chest pain; Abdominal pain; Generalized; Patient HX: R/O pe - R/O dissection; Additional info: Chest pain; R/O pe, R/O dissection [facility] and description[facility] TECHNIQUE: Axial computed tomographic angiography images of the chest with intravenous contrast using pulmonary embolism protocol. All CT scans at this facility use at least one of these dose optimization techniques: automated exposure control; mA and/or kV adjustment per patient size (includes targeted exams where dose is matched to clinical indication); or iterative reconstruction. MIP reconstructed images were created and reviewed. Coronal and sagittal reformatted images were created and reviewed. CONTRAST: 140 mL of omni 350 administered intravenously. COMPARISON: DX - CHEST PORTABLE 2017-09-19 18:31 FINDINGS: Pulmonary arteries: The main pulmonary trunk, right/left main pulmonary arteries, and the proximal lobar branches demonstrate no definite intraluminal filling defect to suggest pulmonary embolism. Aorta: Mural thrombus is identified involving the descending thoracic aorta, without aneurysmal dilatation. Lungs: Biapical bullae are visualized, right side greater than left. Emphysematous changes are visualized bilaterally, which are predominantly centrilobular. There is a consolidation within the azygous lobe posteriorly, suggestive of atelectatic change or infiltrate. Dependent groundglass density infiltrates and atelectatic changes are seen bilaterally. An azygos fissure is visualized, which contains the azygous vein. Atelectatic change or parenchymal scarring is visualized at the right lung base. No lung mass is visualized. Pleural space: No significant effusion. No pneumothorax. Heart: No cardiomegaly. No significant pericardial effusion. Bones/joints: There is increased kyphosis of the thoracic spine. Degenerative changes are identified at multiple thoracic levels. There is a heterogeneously hypodense small lesion within the T9 vertebral body, suggestive of a hemangioma. Lymph nodes: Scattered mediastinal lymph nodes are identified, a few which are mildly enlarged. A subcarinal lymph node measures 1.3 x 1.0 cm. Small bilateral hilar lymph nodes are also visualized. IMPRESSION: 1. Mural thrombus is identified involving the descending thoracic aorta, without aneurysmal dilatation. 2. No acute pulmonary embolism. 3. Biapical bullae are visualized, right side greater than left. Emphysematous changes are visualized bilaterally, which are predominantly centrilobular. 4. There is a consolidation within the azygous lobe posteriorly, suggestive of atelectatic change or infiltrate. 5. Dependent groundglass density infiltrates and atelectatic changes are seen bilaterally. 6. Scattered nonspecific mediastinal lymph nodes are identified, a few which are mildly enlarged. Small bilateral hilar lymph nodes are also visualized. 7. Additional CT findings described above. EXAM: CT Angiography Abdomen and Pelvis With Intravenous Contrast EXAM DATE/TIME: 09/19/2017 6:53 PM CLINICAL HISTORY: The patient age is 61 years old and is male; Pain; Chest pain; Abdominal pain; Generalized; Patient HX: R/O pe - R/O dissection; Additional info: Chest pain; R/O pe, R/O dissection Facility exam id and description: [facility] angio chest/abdomen/pelvis TECHNIQUE: Axial computed tomographic angiography images of the abdomen and pelvis with intravenous contrast. All CT scans at this facility use at least one of these dose optimization techniques: automated exposure control; mA and/or kV adjustment per patient size (includes targeted exams where dose is matched to clinical indication); or iterative reconstruction. MIP reconstructed images were created and reviewed. Coronal and sagittal reformatted images were created and reviewed. CONTRAST: 140 mL of omni 350 administered intravenously. 140 mL of omni 350 administered intravenously. COMPARISON: CT - ABD PELVIS IV CONTRAST ONLY 2016-10-31 08:52 FINDINGS: VASCULATURE: Aorta: There is no aneurysm or dissection of the aorta. There is atherosclerotic calcification of the abdominal aorta. Celiac trunk and mesenteric arteries: There is mild narrowing or stenosis of the proximal celiac artery. There is no significant stenosis of the superior mesenteric artery. The inferior mesenteric artery is patent, without occlusion. Renal arteries: There is approximately 50% stenosis of the proximal right renal artery. There is no significant stenosis or occlusion of the left renal artery. Iliac arteries: Mural thrombus and dissection flap are visualized within the left common iliac artery. Atherosclerosis and mural thrombus are identified the involving the iliac arteries bilaterally. There is approximately 50% stenosis of the right common and external iliac arteries. Stenoses are visualized of the left external and bilateral internal iliac arteries. Other arteries: There is a proximally 70% stenosis of the bilateral superficial femoral arteries proximally. Additional stenoses are identified of the bilateral proximal common femoral and deep femoral arteries, with atherosclerosis and mural thrombus. ABDOMEN: Liver: Scattered enhancing foci or lesions are identified within the liver, which are nonspecific. These may represent atypical hemangiomas, although additional enhancing pathology cannot be excluded. One of the larger lesions is seen within the right hepatic lobe measuring 1.3 x 0.8 cm. These findings are new compared to the prior study. Gallbladder and bile ducts: No calcified stones. Pancreas: No ductal dilation. No mass. Spleen: No splenomegaly. Adrenals: No mass. Kidneys and ureters: No hydronephrosis. No solid mass. Stomach and bowel: There is mild gaseous distention of the rectum. Moderate fecal material is identified within the colon. PELVIS: Appendix: No findings to suggest acute appendicitis. Bladder: No mass. Reproductive: The prostate is mildly enlarged. Small calcifications are identified within the prostate. ABDOMEN and PELVIS: Intraperitoneal space: Within the right side of the abdomen, there is a peripherally calcified nodular density identified measuring 1.7 x 1.3 cm. A similar finding is visualized on the prior study. No free air. Bones/joints: Hypertrophic degenerative changes are noted within the spine. Lymph nodes: No enlarged lymph nodes. IMPRESSION: 1. There is no aneurysm or dissection of the aorta. 2. 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 In retrospect, this appears to be chronic. 3. Atherosclerosis and mural thrombus are identified the involving the iliac arteries bilaterally. There is approximately 50% stenosis of the right common and external iliac arteries. Stenoses are visualized of the left external and bilateral internal iliac arteries. 4. There is mild narrowing or stenosis of the proximal celiac artery. 5. There is approximately 50% stenosis of the proximal right renal artery. 6. There is a proximally 70% stenosis of the bilateral superficial femoral arteries proximally. Additional stenoses are identified of the bilateral proximal common femoral and deep femoral arteries. 7. Scattered enhancing foci or lesions are identified within the liver, which are nonspecific. These may represent atypical hemangiomas, although additional enhancing pathology cannot be excluded. These findings are new compared to the prior study. A follow-up CT or MRI with contrast is recommended. 8. The prostate is mildly enlarged. 9. Incidental/non-acute findings are described above.
[2017-09-19] MEDS ORDERED: Azithromycin 500MG/NS 250ml 500 MG/250 ML BAG IVPB STA (22:04)
[2017-09-19] MEDS ORDERED: cefTRIAXone 1 gm 1 GM/100 ML BAG IVPB STA (22:04)
[2017-09-19 23:01] LABS: VENOUS BLOOD GAS BASE EXCESS -2.2 mmol/L (0.0-2.0); VENOUS BLOOD GAS PO2 54 mm/Hg (30-55); VENOUS BLOOD PH 7.36 (7.32-7.43)
[2017-09-19] MEDS ORDERED: Multivitamin (MVI) 10 ML, Thiamine 100 MG, Folic Acid 1 MG in Sodium Chloride 0.9% 1,00... IV ONE (23:07)
[2017-09-20 00:13] LABS: AMYLASE 86 U/L (35-125)
--- NOTE | 2017-09-20 00:46 | CP.PCM.HP ---
<Omar Puckett - Last Filed: 09/20/17 06:22> History of Present Illness - History of Present Illness History of Present Illness: CC: Abdominal Pain HPI: Mr. Hendrix is a 61 year old male with a past medical history of ETOH abuse and DM2 who presented to the ED with complaints of upper abdominal pain. Patient states that the pain began a few days ago and has increased in intensity. He describes the pain as sharp and radiating toward the back and Right flank. Patient states that the pain is exacerbated by inspiration and has occasional periods of diaphoresis. Patient is a long time smoker. Patient denies any associated N/V or diarrhea but does admit to chills. A CT abdomen/ pelvis angiogram done in the ED showed scattered enhancing foci or lesion in liver. Currently patient reports that his pain has not changed in intensity, quality or location. Patient denies any headache, dizziness, fever, chills, cough, chest pain, palpitations, N/V, diarrhea, or any urinary symptoms. PMH: DM2 and Alcohol Abuse (quit 10 years ago) PSH: Denied Family: Father-Liver Cancer; Brother-Pancreatic Cancer Social: Current 1.5 per day smoker with a 50 pack year smoking history, former abuser of alcohol but quit 10 years, denies any illicit drug use Allergies: Denied Home Medications: Metformin, unknown second DM medication but fills at [facility] Present on Admission - Present on Admission Any Indicators Present on Admission: No Review of Systems - Review of Systems Review of Systems: Please refer to HPI for all pertinent negatives - Constitutional Constitutional: Fever, Headache Past Patient History - Infectious Disease Hx of Infectious Diseases: None - Tetanus Immunizations Tetanus Immunization: Unknown - Past Social History Smoking Status: Never Smoked - NEUROLOGICAL Hx Dementia: Yes - ENDOCRINE/METABOLIC Hx Diabetes Mellitus Type 1: Yes - MUSCULOSKELETAL/RHEUMATOLOGICAL Hx Falls: No - PSYCHIATRIC Hx Depression: No Hx Emotional Abuse: No Hx Physical Abuse: No Hx Substance Use: No Meds Allergies/Adverse Reactions: Allergies Allergy/AdvReac Type Severity Reaction Status Date / Time No Known Allergies Allergy Verified 10/31/16 07:36 Physical Exam - Constitutional Appears: Well, No Acute Distress - Head Exam Head Exam: ATRAUMATIC, NORMOCEPHALIC - Eye Exam Eye Exam: EOMI, Normal appearance Pupil Exam: NORMAL ACCOMODATION - ENT Exam ENT Exam: Mucous Membranes Dry - Neck Exam Neck exam: Negative for: Lymphadenopathy - Respiratory Exam Respiratory Exam: Chest Wall Tenderness, Decreased Breath Sounds, Clear to Auscultation Bilateral. absent: Accessory Muscle Use, Rales, Rhonchi, Wheezes - Cardiovascular Exam Cardiovascular Exam: REGULAR RHYTHM, +S1, +S2 - GI/Abdominal Exam GI & Abdominal Exam: Guarding, Normal Bowel Sounds, Tenderness. absent: Organomegaly - Expanded Lower Extremities Exam Right Upper Leg exam: full ROM (sharp pain), tenderness Results - Vital Signs Recent Vital Signs: Last Vital Signs Temp 98 F 09/19/17 22:44 Pulse 99 H 09/19/17 22:44 Resp 18 09/19/17 22:44 BP 135/71 09/19/17 22:44 Pulse Ox 96 09/19/17 22:44 - Labs Result Diagrams: 09/19/17 19:11 09/19/17 19:11 Labs: Laboratory Results - last 24 hr 09/19/17 22:57 pO2 54 VBG pH 7.36 VBG pCO2 41.0 VBG HCO3 23.2 VBG Total CO2 24.5 VBG O2 Sat (Calc) 92.1 H VBG Base Excess -2.2 L VBG Potassium 4.4 Sodium 136.0 Chloride 106.0 Glucose 110 Lactate 0.7 FiO2 21.0 Venous Blood Potassium 4.4 Assessment & Plan - Assessment and Plan (Free Text) Assessment: Mr. Hendrix is a 61 year old male with a past medical history of ETOH abuse and DM2 who presented to the ED with complaints of upper abdominal pain. Atelectasis with pleuritic changes - emphysema likely secondary to longtime smoking - CT angio showed emphysematous changes bilaterally, along with posterior consolidation and dependent ground glass infiltrates and scattered non-specific mediastinal lymph node enlargement Nebulizers and incentive jovanna ordered One time dose of ABX- ceftriaxone and azithromycin- given. - f/u ABG, blood cx and urine cx - f/u PFTs - f/u HIV test - R/O TB and follow up up Quant gold - f/u ESR, CRP for connective tissue etiology - f/u WALKER and TSH for immune causes f/u Pulm consult for possible pneumonia f/u ID consult for empiric antibiotic coverage Abdominal pain - f/u LFTs f/u GI consult for multiple hemangiomas on liver Right upper Leg pain F/u Duplex venous doppler On gabapentin DM2 Presently on ISS. Monitor sugars f/u lipid panel Continue with gabapentin for neuropathy ETOH abuse UDS back negative I have discussed this case with Dr. Duane Faulkner and she has agreed with my assessments. <Duane Faulkner N - Last Filed: 09/20/17 20:45> Results - Vital Signs Recent Vital Signs: Last Vital Signs Temp 98.4 F 09/20/17 18:00 Pulse 67 09/20/17 18:00 Resp 18 09/20/17 18:00 BP 133/69 09/20/17 18:00 Pulse Ox 100 09/20/17 18:00 - Labs Result Diagrams: 09/20/17 06:30 09/20/17 06:30 Labs: Laboratory Results - last 24 hr 09/19/17 09/19/17 09/20/17 22:57 23:55 03:15 WBC RBC Hgb Hct MCV MCH MCHC RDW Plt Count MPV Gran % Lymph % (Auto) [place] % (Auto) Eos % (Auto) Baso % (Auto) Gran # Lymph # (Auto) [place] # (Auto) Eos # (Auto) Baso # (Auto) PT INR APTT pCO2 35 pO2 54 66.0 L HCO3 21.2 ABG pH 7.39 ABG Total CO2 22.3 ABG O2 Saturation 96.4 ABG O2 Content 16.7 ABG Base Excess -3.2 L ABG Hemoglobin 12.7 ABG Carboxyhemoglobin 2.7 H POC ABG HHb (Measured) 3.5 ABG Methemoglobin 0.3 ABG O2 Capacity 17.3 VBG pH 7.36 VBG pCO2 41.0 VBG HCO3 23.2 VBG Total CO2 24.5 VBG O2 Sat (Calc) 92.1 H VBG Base Excess -2.2 L VBG Potassium 4.4 Hgb O2 Saturation 93.5 L Sodium 136.0 Chloride 106.0 Glucose 110 Lactate 0.7 FiO2 21.0 21.0 Potassium Carbon Dioxide Anion Gap BUN Creatinine Est GFR ( Amer) Est GFR (Non-Af Amer) POC Glucose (mg/dL) Random Glucose Hemoglobin A1c Calcium Total Bilirubin AST ALT Alkaline Phosphatase Lactate Dehydrogenase Total Creatine Kinase Troponin I C-Reactive Protein Total Protein Albumin Globulin Albumin/Globulin Ratio Triglycerides Cholesterol LDL Cholesterol Direct HDL Cholesterol Procalcitonin Free T4 TSH 3rd Generation Venous Blood Potassium 4.4 Urine Opiates Screen Negative Urine Methadone Screen Negative Ur Barbiturates Screen Negative Ur Phencyclidine Scrn Negative Ur Amphetamines Screen Negative U Benzodiazepines Scrn Negative U Oth Cocaine Metabols Negative U Cannabinoids Screen Negative RPR Ur L.pneumophila Ag 09/20/17 09/20/17 09/20/17 06:00 06:00 06:30 WBC RBC Hgb Hct MCV MCH MCHC RDW Plt Count MPV Gran % Lymph % (Auto) [place] % (Auto) Eos % (Auto) Baso % (Auto) Gran # Lymph # (Auto) [place] # (Auto) Eos # (Auto) Baso # (Auto) PT INR APTT pCO2 pO2 HCO3 ABG pH ABG Total CO2 ABG O2 Saturation ABG O2 Content ABG Base Excess ABG Hemoglobin ABG Carboxyhemoglobin POC ABG HHb (Measured) ABG Methemoglobin ABG O2 Capacity VBG pH VBG pCO2 VBG HCO3 VBG Total CO2 VBG O2 Sat (Calc) VBG Base Excess VBG Potassium Hgb O2 Saturation Sodium Chloride Glucose Lactate FiO2 Potassium Carbon Dioxide Anion Gap BUN Creatinine Est GFR ( Amer) Est GFR (Non-Af Amer) POC Glucose (mg/dL) Random Glucose Hemoglobin A1c Calcium Total Bilirubin AST ALT Alkaline Phosphatase Lactate Dehydrogenase Total Creatine Kinase Troponin I C-Reactive Protein 40.80 H Total Protein Albumin Globulin Albumin/Globulin Ratio Triglycerides 108 Cholesterol 119 L LDL Cholesterol Direct 67 HDL Cholesterol 27 L Procalcitonin Free T4 1.16 TSH 3rd Generation 0.23 L Venous Blood Potassium Urine Opiates Screen Urine Methadone Screen Ur Barbiturates Screen Ur Phencyclidine Scrn Ur Amphetamines Screen U Benzodiazepines Scrn U Oth Cocaine Metabols U Cannabinoids Screen RPR Ur L.pneumophila Ag 09/20/17 09/20/17 09/20/17 06:30 06:30 06:30 WBC 7.5 D RBC 4.83 Hgb 13.1 L Hct 39.0 L MCV 80.7 MCH 27.1 MCHC 33.6 RDW 13.7 Plt Count 176 MPV 11.0 Gran % 68.4 H Lymph % (Auto) 20.6 L [place] % (Auto) 9.4 H Eos % (Auto) 1.3 L Baso % (Auto) 0.3 Gran # 5.10 Lymph # (Auto) 1.5 [place] # (Auto) 0.7 H Eos # (Auto) 0.1 Baso # (Auto) 0.02 PT INR APTT pCO2 pO2 HCO3 ABG pH ABG Total CO2 ABG O2 Saturation ABG O2 Content ABG Base Excess ABG Hemoglobin ABG Carboxyhemoglobin POC ABG HHb (Measured) ABG Methemoglobin ABG O2 Capacity VBG pH VBG pCO2 VBG HCO3 VBG Total CO2 VBG O2 Sat (Calc) VBG Base Excess VBG Potassium Hgb O2 Saturation Sodium 142 Chloride 108 H Glucose Lactate FiO2 Potassium 3.7 Carbon Dioxide 25 Anion Gap 12 BUN 14 Creatinine 0.7 L Est GFR ( Amer) > 60 Est GFR (Non-Af Amer) > 60 POC Glucose (mg/dL) Random Glucose 119 H Hemoglobin A1c Calcium 10.1 Total Bilirubin 0.4 AST 40 ALT 16 Alkaline Phosphatase 52 Lactate Dehydrogenase 332 L Total Creatine Kinase 116 Troponin I < 0.01 C-Reactive Protein Total Protein 6.3 Albumin 3.4 Globulin 2.9 Albumin/Globulin Ratio 1.1 Triglycerides Cholesterol LDL Cholesterol Direct HDL Cholesterol Procalcitonin < 0.05 L Free T4 TSH 3rd Generation Venous Blood Potassium Urine Opiates Screen Urine Methadone Screen Ur Barbiturates Screen Ur Phencyclidine Scrn Ur Amphetamines Screen U Benzodiazepines Scrn U Oth Cocaine Metabols U Cannabinoids Screen RPR Ur L.pneumophila Ag 09/20/17 09/20/17 09/20/17 06:30 07:24 10:25 WBC RBC Hgb Hct MCV MCH MCHC RDW Plt Count MPV Gran % Lymph % (Auto) [place] % (Auto) Eos % (Auto) Baso % (Auto) Gran # Lymph # (Auto) [place] # (Auto) Eos # (Auto) Baso # (Auto) PT INR APTT pCO2 pO2 HCO3 ABG pH ABG Total CO2 ABG O2 Saturation ABG O2 Content ABG Base Excess ABG Hemoglobin ABG Carboxyhemoglobin POC ABG HHb (Measured) ABG Methemoglobin ABG O2 Capacity VBG pH VBG pCO2 VBG HCO3 VBG Total CO2 VBG O2 Sat (Calc) VBG Base Excess VBG Potassium Hgb O2 Saturation Sodium Chloride Glucose Lactate FiO2 Potassium Carbon Dioxide Anion Gap BUN Creatinine Est GFR ( Amer) Est GFR (Non-Af Amer) POC Glucose (mg/dL) Random Glucose Hemoglobin A1c 7.4 H Calcium Total Bilirubin AST ALT Alkaline Phosphatase Lactate Dehydrogenase Total Creatine Kinase Troponin I C-Reactive Protein Total Protein Albumin Globulin Albumin/Globulin Ratio Triglycerides Cholesterol LDL Cholesterol Direct HDL Cholesterol Procalcitonin Free T4 TSH 3rd Generation Venous Blood Potassium Urine Opiates Screen Urine Methadone Screen Ur Barbiturates Screen Ur Phencyclidine Scrn Ur Amphetamines Screen U Benzodiazepines Scrn U Oth Cocaine Metabols U Cannabinoids Screen RPR Nonreactive Ur L.pneumophila Ag Negative 09/20/17 09/20/17 09/20/17 11:40 14:30 14:30 WBC RBC Hgb Hct MCV MCH MCHC RDW Plt Count MPV Gran % Lymph % (Auto) [place] % (Auto) Eos % (Auto) Baso % (Auto) Gran # Lymph # (Auto) [place] # (Auto) Eos # (Auto) Baso # (Auto) PT 16.0 H INR 1.39 H APTT 40.3 H pCO2 pO2 HCO3 ABG pH ABG Total CO2 ABG O2 Saturation ABG O2 Content ABG Base Excess ABG Hemoglobin ABG Carboxyhemoglobin POC ABG HHb (Measured) ABG Methemoglobin ABG O2 Capacity VBG pH VBG pCO2 VBG HCO3 VBG Total CO2 VBG O2 Sat (Calc) VBG Base Excess VBG Potassium Hgb O2 Saturation Sodium Chloride Glucose Lactate FiO2 Potassium Carbon Dioxide Anion Gap BUN Creatinine Est GFR ( Amer) Est GFR (Non-Af Amer) POC Glucose (mg/dL) 169 H Random Glucose Hemoglobin A1c Calcium Total Bilirubin AST ALT Alkaline Phosphatase Lactate Dehydrogenase 280 L Total Creatine Kinase 93 Troponin I < 0.01 C-Reactive Protein Total Protein Albumin Globulin Albumin/Globulin Ratio Triglycerides Cholesterol LDL Cholesterol Direct HDL Cholesterol Procalcitonin Free T4 TSH 3rd Generation Venous Blood Potassium Urine Opiates Screen Urine Methadone Screen Ur Barbiturates Screen Ur Phencyclidine Scrn Ur Amphetamines Screen U Benzodiazepines Scrn U Oth Cocaine Metabols U Cannabinoids Screen RPR Ur L.pneumophila Ag
[2017-09-20 01:05] LABS: BARBITURATES, UR NEGATIVE (NEGATIVE); BENZODIAZEPINES, UR NEGATIVE (NEGATIVE); OPIATES, UR NEGATIVE (NEGATIVE); PHENCYCLIDINE, UR NEGATIVE (NEGATIVE)
[2017-09-20] MEDS: Albuterol-Ipratrop 3 mg / 0.5 (3 ml) UD IH SCH ×4 (02:33→21:05)
[2017-09-20 03:19] LABS: ARTERIAL BLOOD GAS HCO3 21.2 mmol/L (21-28); ARTERIAL BLOOD GAS HEMOGLOBIN 12.7 g/dL (11.7-17.4); ARTERIAL BLOOD GAS O2 CAPACITY 17.3 mL/dl (16-24); ARTERIAL BLOOD GAS O2 CONTENT 16.7 ML/dl (15-23); ARTERIAL BLOOD GAS O2 SAT 96.4 % (95-98); ARTERIAL BLOOD GAS PCO2 35 mm/Hg (35-45); ARTERIAL BLOOD GAS PH 7.39 (7.35-7.45); ARTERIAL BLOOD GAS TCO2 22.3 mmol.L (22-28)
--- NOTE | 2017-09-20 07:25 | CP.PCM.CON ---
History of Present Illness - History of Present Illness History of Present Illness: GI Consult Note for Dr. Aime Lundberg Jeffrey Gamez, PGY-3 IM 61 yo M with PMH of DMII, prior EtOH abuse (quit 10 yrs prior), and heavy tobacco use who [place] [facility] complaint of RUQ pain radiating to back, now reported by patient as R chest pain radiating to back. GI was consulted due to reported suspected liver hemangiomas on CTA chest/abd/pelvis obtained on arrival. As per patient, no hx of any GI issues, but does have strong family hx of Liver cancer (Father and 1 son) and Pancreatic Ca (Brother) . He denies any unintentional weight loss, night sweats, focal weakness, polyuria, polydipsia, PO intolerance, or chronic abd pain. Reports the pain for which he is presenting started 2-3 days prior, worse with deep breathing. Denies dyspnea, tachypnea, room-spinning, palpitations, sensation of tearing in chest, or pulsating/pounding headache. All other ROS in 12-system review negative. Of note, due to lesions in lung concerning for cavitary lesion, patient is currently on airborne isolation pending TB r/o. PMH: as above PSH: denies Fam Hx: Liver Ca (Father, Son), Pancreatic Ca (Brother) Soc Hx: former EtOH abuser (quit 10 yrs ago), current smoker (1.5ppd > 40 yrs, > 50 pack years), denies illicits/IVDA PMD: Dr. Julio Cesar Bhakta Review of Systems - Review of Systems All systems: reviewed and no additional remarkable complaints except (as per HPI ) Past Patient History - Infectious Disease Hx of Infectious Diseases: None - Tetanus Immunizations Tetanus Immunization: Unknown - Past Social History Smoking Status: Never Smoked - CARDIAC Hx Cardiac Disorders: No - PULMONARY Hx Respiratory Disorders: No - NEUROLOGICAL Hx Dementia: Yes - HEENT Hx HEENT Problems: No - RENAL Hx Chronic Kidney Disease: No - ENDOCRINE/METABOLIC Hx Diabetes Mellitus Type 1: Yes - HEMATOLOGICAL/ONCOLOGICAL Hx Blood Disorders: No - INTEGUMENTARY Hx Dermatological Problems: No - MUSCULOSKELETAL/RHEUMATOLOGICAL Hx Falls: No - GASTROINTESTINAL Hx Gastrointestinal Disorders: Yes Hx Pancreatitis: Yes - GENITOURINARY/GYNECOLOGICAL Hx Genitourinary Disorders: No - PSYCHIATRIC Hx Depression: No Hx Emotional Abuse: No Hx Physical Abuse: No Hx Substance Use: No - SURGICAL HISTORY Hx Surgeries: No Meds Allergies/Adverse Reactions: Allergies Allergy/AdvReac Type Severity Reaction Status Date / Time No Known Allergies Allergy Verified 10/31/16 07:36 - Medications Medications: Current Medications Acetaminophen (Tylenol 325mg Tab) 650 mg PO Q6H PRN PRN Reason: Pain, moderate (4-7) Albuterol/Ipratropium (Duoneb 3 Mg/0.5 Mg (3 Ml) Ud) 3 ml IH [id number] [facility] [place] Last Admin: 09/20/17 02:33 Dose: 3 ml Enoxaparin Sodium (Lovenox) 40 mg SC DAILY LAURA PRN Reason: Protocol Famotidine (Pepcid) 20 mg PO 1000,2200 LAURA Gabapentin (Neurontin) 500 mg PO TID LAURA PRN Reason: Protocol Insulin Human Regular (Humulin R Low) 0 units SC ACHS LAURA PRN Reason: Protocol Physical Exam - Constitutional Appears: Well, Non-toxic, No Acute Distress - Head Exam Head Exam: ATRAUMATIC, NORMAL INSPECTION, NORMOCEPHALIC - Eye Exam Eye Exam: EOMI, Normal appearance. absent: Conjunctival injection, Scleral icterus Pupil Exam: absent: Fixed, Irregular - ENT Exam ENT Exam: Mucous Membranes Moist, Normal Exam - Neck Exam Neck exam: Positive for: Full Rom, Normal Inspection. Negative for: Lymphadenopathy - Respiratory Exam Respiratory Exam: Chest Wall Tenderness (reproducible tenderness to palpation along right lateral chest wall, along mid-clavicular line at ribs 3-7; tenderness at right lateral back along same ribs) Additional comments: Moderately decreased breath sounds in all steiner, no appreciable rales or ronchi on exam, mild end-expiratory wheeze appreciated at bilateral upper lobes Not tachypnic, no ameena cyanosis appreciated, not dyspnic with speech - Cardiovascular Exam Cardiovascular Exam: REGULAR RHYTHM, RRR, +S1, +S2. absent: Bradycardia, Tachycardia, Irregular Rhythm, JVD, +S4 - GI/Abdominal Exam GI & Abdominal Exam: Normal Bowel Sounds. absent: Diminished Bowel Sounds, Distended, Firm, Hyperactive Bowel Sounds, Hypoactive Bowel Sounds, Tenderness - Extremities Exam Extremities exam: Positive for: normal capillary refill, normal inspection, pedal pulses present. Negative for: calf tenderness, pedal edema, tenderness - Back Exam Back exam: absent: CVA tenderness (L), CVA tenderness (R) - Neurological Exam Neurological exam: Alert, Oriented x3 - Psychiatric Exam Psychiatric exam: Normal Affect, Normal Mood - Skin Skin Exam: Dry, Intact, Normal Color, Warm Results - Vital Signs Recent Vital Signs: Last Vital Signs Temp 98.2 F 09/20/17 05:53 Pulse 102 H 09/20/17 05:53 Resp 18 09/20/17 05:53 BP 122/69 09/20/17 05:53 Pulse Ox 97 09/20/17 05:53 - Labs Result Diagrams: 09/20/17 06:30 09/20/17 06:30 Labs: Laboratory Results - last 24 hr 09/19/17 09/19/17 09/20/17 22:57 23:55 03:15 pCO2 35 pO2 54 66.0 L HCO3 21.2 ABG pH 7.39 ABG Total CO2 22.3 ABG O2 Saturation 96.4 ABG O2 Content 16.7 ABG Base Excess -3.2 L ABG Hemoglobin 12.7 ABG Carboxyhemoglobin 2.7 H POC ABG HHb (Measured) 3.5 ABG Methemoglobin 0.3 ABG O2 Capacity 17.3 VBG pH 7.36 VBG pCO2 41.0 VBG HCO3 23.2 VBG Total CO2 24.5 VBG O2 Sat (Calc) 92.1 H VBG Base Excess -2.2 L VBG Potassium 4.4 Hgb O2 Saturation 93.5 L Sodium 136.0 Chloride 106.0 Glucose 110 Lactate 0.7 FiO2 21.0 21.0 Triglycerides Cholesterol LDL Cholesterol Direct HDL Cholesterol TSH 3rd Generation Venous Blood Potassium 4.4 Urine Opiates Screen Negative Urine Methadone Screen Negative Ur Barbiturates Screen Negative Ur Phencyclidine Scrn Negative Ur Amphetamines Screen Negative U Benzodiazepines Scrn Negative U Oth Cocaine Metabols Negative U Cannabinoids Screen Negative 09/20/17 09/20/17 06:00 06:00 pCO2 pO2 HCO3 ABG pH ABG Total CO2 ABG O2 Saturation ABG O2 Content ABG Base Excess ABG Hemoglobin ABG Carboxyhemoglobin POC ABG HHb (Measured) ABG Methemoglobin ABG O2 Capacity VBG pH VBG pCO2 VBG HCO3 VBG Total CO2 VBG O2 Sat (Calc) VBG Base Excess VBG Potassium Hgb O2 Saturation Sodium Chloride Glucose Lactate FiO2 Triglycerides 108 Cholesterol 119 L LDL Cholesterol Direct 67 HDL Cholesterol 27 L TSH 3rd Generation 0.23 L Venous Blood Potassium Urine Opiates Screen Urine Methadone Screen Ur Barbiturates Screen Ur Phencyclidine Scrn Ur Amphetamines Screen U Benzodiazepines Scrn U Oth Cocaine Metabols U Cannabinoids Screen Assessment & Plan - Assessment and Plan (Free Text) Assessment: 61 yo M with PMH of DMII, prior EtOH abuse (quit 10 yrs prior), and heavy tobacco use who [place] [facility] [place] complaint of RUQ pain radiating to back, now reported by patient as R chest pain radiating to back. GI was consulted due to reported suspected liver hemangiomas on CTA chest/abd/pelvis obtained on arrival. 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 Mild narrowing or stenosis of the proximal celiac artery. ~50% stenosis of the proximal right renal artery. ~70% stenosis of the bilateral superficial femoral arteries proximally. Scattered enhancing foci/lesions in liver, nonspecific, may represent atypical hemangiomas, not present on prior CT -Reviewed with GI attending, who also discussed imaging with Radiologist machine operations supervisor , Dr. Perkins, less convinced of liver lesions -Will obtain Liver US, if corresponding lesions on US are hyperechogenic, then most likely hemangioma and no MRI needed -Likely COPD with blebs due to findings on Chest CT; defer to Pulm for management -Undergoing TB r/o, in setting of possible TB liver lesion could be milliary TB , awaiting results of workup as per primary team and Pulm Patient seen, reviewed, and discussed with attending, Dr. Salomon
[2017-09-20] MEDS ORDERED: Potassium & Sodium Phosphate PO ONE (07:27)
--- NOTE | 2017-09-20 07:47 | CARD ---
APPROVED REPORT EKG Measurement Heart [id number] <Conclusion> Sinus tachycardia Possible Left atrial enlargement Left axis deviation Inferior infarct, age undetermined Cannot rule out Anteroseptal infarct, age undetermined Abnormal ECG
[2017-09-20] MEDS: Insulin Reg-LOW-Coverage SC SCH ×4 (07:55→21:38)
--- NOTE | 2017-09-20 07:57 | CP.PCM.CON ---
History of Present Illness - History of Present Illness History of Present Illness: Vascular Surgery Note for Dr. Garza Reason for consult: Peripheral artery disease seen on CTA 61 M with PMH of DM, history of EtOH abuse (quit 10 years ago), neuropathy presents to [facility] for complaint of right sided chest pain and right anterior thigh pain. Patient states that pain began Monday night. He states that Monday it had gotten worse and decided to go to the ED. Patient reports sudden onset. He states he has never experienced this pain in the past. He rate pain as moderate. He describes pain as constant and aching in right chest near level of ribs 4-5 and right anterior thigh without radiation. He denies any alleviating or aggravating factors. He states that he walks one hour per day everyday without issues. Denies any trauma or fall. Patient admits to intermittent neuropathy in hands and feet which he takes gabapentin. He reports compliance with diabetic medications. Denies fever/chills, SOB, palpitations, abdominal pain, nausea/vomiting, diarrhea, constipation, incontinence, hematemesis, hematochezia. PMH: DM, history of EtOH abuse (quit 10 years ago), neuropathy Meds: Metformin, Gabapentin, Protonix Allergy: NKDA PSH: Denies FH: Liver CA, Pancreatic CA Social: smokes 1.5 packs/day for at least 30 years, history of EtOH abuse (quit 10 years ago), denies illicit drug use, lives with family Review of Systems - Review of Systems All systems: reviewed and no additional remarkable complaints except (as per HPI ) Past Patient History - Infectious Disease Hx of Infectious Diseases: None - Tetanus Immunizations Tetanus Immunization: Unknown - Past Social History Smoking Status: Never Smoked - CARDIAC Hx Cardiac Disorders: No - PULMONARY Hx Respiratory Disorders: No - NEUROLOGICAL Hx Dementia: Yes - HEENT Hx HEENT Problems: No - RENAL Hx Chronic Kidney Disease: No - ENDOCRINE/METABOLIC Hx Diabetes Mellitus Type 1: Yes - HEMATOLOGICAL/ONCOLOGICAL Hx Blood Disorders: No - INTEGUMENTARY Hx Dermatological Problems: No - MUSCULOSKELETAL/RHEUMATOLOGICAL Hx Falls: No - GASTROINTESTINAL Hx Gastrointestinal Disorders: Yes Hx Pancreatitis: Yes - GENITOURINARY/GYNECOLOGICAL Hx Genitourinary Disorders: No - PSYCHIATRIC Hx Depression: No Hx Emotional Abuse: No Hx Physical Abuse: No Hx Substance Use: No - SURGICAL HISTORY Hx Surgeries: No Meds Allergies/Adverse Reactions: Allergies Allergy/AdvReac Type Severity Reaction Status Date / Time No Known Allergies Allergy Verified 10/31/16 07:36 - Medications Medications: Current Medications Acetaminophen (Tylenol 325mg Tab) 650 mg PO Q6H PRN PRN Reason: Pain, moderate (4-7) Albuterol/Ipratropium (Duoneb 3 Mg/0.5 Mg (3 Ml) Ud) 3 ml IH [id number] [facility] Last Admin: 09/20/17 02:33 Dose: 3 ml Enoxaparin Sodium (Lovenox) 40 mg SC DAILY [facility] PRN Reason: Protocol Famotidine (Pepcid) 20 mg PO 1000,2200 [facility] Gabapentin (Neurontin) 500 mg PO TID [facility] PRN Reason: Protocol Sodium Chloride (Sodium Chloride 0.9%) 1,000 mls @ 150 mls/hr IV .Q6H40M [facility] Insulin Human Regular (Humulin R Low) 0 units SC ACHS [facility] PRN Reason: Protocol Last Admin: 09/20/17 07:55 Dose: Not Given Physical Exam - Constitutional Appears: Well, No Acute Distress, Younger Than Stated Age - Head Exam Head Exam: ATRAUMATIC, NORMOCEPHALIC - Eye Exam Eye Exam: EOMI, Normal appearance Pupil Exam: PERRL - ENT Exam ENT Exam: Mucous Membranes Moist - Respiratory Exam Respiratory Exam: NORMAL BREATHING PATTERN - Cardiovascular Exam Cardiovascular Exam: REGULAR RHYTHM - GI/Abdominal Exam GI & Abdominal Exam: Normal Bowel Sounds, Soft. absent: Distended, Firm, Guarding, Hernia, Mass, Rebound, Rigid, Tenderness - Extremities Exam Extremities exam: Positive for: normal capillary refill, tenderness (Right anterior thigh), pedal pulses present. Negative for: calf tenderness Additional comments: Right femoral pulse 2+, Right popliteal 2+, Right DP/PT 2+ Left femoral 2+, Left popliteal 1+, Left DP/PT 2+ cap refill < 2 sec no sensory/motor deficit - Back Exam Back exam: absent: CVA tenderness (L), CVA tenderness (R) - Neurological Exam Neurological exam: Alert, CN II-XII Intact, Oriented x3 - Psychiatric Exam Psychiatric exam: Normal Affect, Normal Mood - Skin Skin Exam: Dry, Intact, Normal Color, Warm Results - Vital Signs Recent Vital Signs: Last Vital Signs Temp 98.2 F 09/20/17 05:53 Pulse 102 H 09/20/17 05:53 Resp 18 09/20/17 05:53 BP 122/69 09/20/17 05:53 Pulse Ox 97 09/20/17 05:53 - Labs Result Diagrams: 09/20/17 06:30 09/20/17 06:30 Labs: Laboratory Results - last 24 hr 09/19/17 09/19/17 09/20/17 22:57 23:55 03:15 pCO2 35 pO2 54 66.0 L HCO3 21.2 ABG pH 7.39 ABG Total CO2 22.3 ABG O2 Saturation 96.4 ABG O2 Content 16.7 ABG Base Excess -3.2 L ABG Hemoglobin 12.7 ABG Carboxyhemoglobin 2.7 H POC ABG HHb (Measured) 3.5 ABG Methemoglobin 0.3 ABG O2 Capacity 17.3 VBG pH 7.36 VBG pCO2 41.0 VBG HCO3 23.2 VBG Total CO2 24.5 VBG O2 Sat (Calc) 92.1 H VBG Base Excess -2.2 L VBG Potassium 4.4 Hgb O2 Saturation 93.5 L Sodium 136.0 Chloride 106.0 Glucose 110 Lactate 0.7 FiO2 21.0 21.0 Triglycerides Cholesterol LDL Cholesterol Direct HDL Cholesterol TSH 3rd Generation Venous Blood Potassium 4.4 Urine Opiates Screen Negative Urine Methadone Screen Negative Ur Barbiturates Screen Negative Ur Phencyclidine Scrn Negative Ur Amphetamines Screen Negative U Benzodiazepines Scrn Negative U Oth Cocaine Metabols Negative U Cannabinoids Screen Negative 09/20/17 09/20/17 06:00 06:00 pCO2 pO2 HCO3 ABG pH ABG Total CO2 ABG O2 Saturation ABG O2 Content ABG Base Excess ABG Hemoglobin ABG Carboxyhemoglobin POC ABG HHb (Measured) ABG Methemoglobin ABG O2 Capacity VBG pH VBG pCO2 VBG HCO3 VBG Total CO2 VBG O2 Sat (Calc) VBG Base Excess VBG Potassium Hgb O2 Saturation Sodium Chloride Glucose Lactate FiO2 Triglycerides 108 Cholesterol 119 L LDL Cholesterol Direct 67 HDL Cholesterol 27 L TSH 3rd Generation 0.23 L Venous Blood Potassium Urine Opiates Screen Urine Methadone Screen Ur Barbiturates Screen Ur Phencyclidine Scrn Ur Amphetamines Screen U Benzodiazepines Scrn U Oth Cocaine Metabols U Cannabinoids Screen Assessment & Plan - Assessment and Plan (Free Text) Assessment: 61 M with peripheral artery disease seen on CTA; Mural thrombus and dissection flap within the left common iliac artery Atherosclerosis and mural thrombus in iliac arteries bilaterally Approximately 50% stenosis of the right common and external iliac arteries Stenoses of the left external and bilateral internal iliac arteries Stenosis of the proximal celiac artery. Approximately 50% stenosis of the proximal right renal artery. 70% stenosis of the bilateral superficial femoral arteries proximally Stenoses of the bilateral proximal common femoral and deep femoral arteries Plan: -Patient has all pulses palpable in bilateral lower extremities -LE venous doppler negative -IR consulted, follow up recommendations -Monitor peripheral pulses -DVT ppx -No vascular surgery intervention planned for at this time -Continue management as per primary -Discussed with Dr. Greg Pierre PGY2 - Date & Time Date: 09/20/17 Time: 08:30
[2017-09-20] MEDS ORDERED: Sodium Chloride 0.9% 1,000 ML IV SCH (08:00)
[2017-09-20 08:51] LABS: TROPONIN I < 0.01 ng/mL
[2017-09-20 08:54] LABS: ALB/GLOB RATIO 1.1 (1.1-1.8); ALBUMIN 3.4 g/dL (3.0-4.8); ALT/SGPT 16 U/L (7-56); AST/SGOT 40 U/L (17-59); BLOOD UREA NITROGEN 14 mg/dL (7-21); CALCIUM 10.1 mg/dL (8.4-10.5); GFR AFRICAN-AMERICAN > 60; GFR NON-AFRICAN AMERICAN > 60
[2017-09-20 09:12] LABS: BASO # 0.02 K/mm3 (0.0-2.0); BASO % 0.3 % (0.0-3.0); EOS # 0.1 (0.0-0.7); EOS % 1.3 % (1.5-5.0); GRAN # 5.1 (1.4-6.5); GRAN % 68.4 % (50.0-68.0); HEMOGLOBIN 13.1 g/dL (14.0-18.0); LYMPH # 1.5 (1.2-3.4); LYMPH % 20.6 % (22.0-35.0); MEAN CELL VOLUME 80.7 fl (80.0-105.0); MEAN CORPUSCULAR HEMOGLOBIN 27.1 pg (25.0-35.0); MEAN CORPUSCULAR HGB CONC 33.6 g/dl (31.0-37.0); MONO # 0.7 (0.1-0.6); MONO % 9.4 % (1.0-6.0); RBC 4.83 10^6/uL (3.5-6.1); RED CELL DISTRIBUTION WIDTH 13.7 % (11.5-14.5); WHITE BLOOD COUNT 7.5 10^3/ul (4.5-11.0)
[2017-09-20] MEDS: cefTRIAXone 1 gm 1 GM/100 ML BAG IVPB SCH (10:16)
[2017-09-20] MEDS: Enoxaparin 40 mg Syringe SC SCH (10:17)
--- NOTE | 2017-09-20 14:47 | CP.PCM.PN ---
<Kee Melissa - Last Filed: 09/20/17 16:53> Subjective - Date & Time of Evaluation Date of Evaluation: 09/20/17 Time of Evaluation: 14:39 - Subjective Subjective: Kee Melissa D.O. PGY1 - Internal Medicine Resident - Medicine Progress Note Pt was seen this AM at bedside. No acute complaints overnight; no complaints at time of exam other than pleuritic reproducible R sided chest pain; back pain; RUQ Abd pain; and RLE pain. Pt. denied any FERRIS, BV, CP, Palp, SOB, Cough, N/V/D/C , hematuria, dysuria, and focal extremity weakness. Pt did report pleuritic pain w/ deep inspiration, numbness/tingling due to neuropathy. Objective - Vital Signs/Intake and Output Vital Signs (last 24 hours): Temp Pulse Resp BP Pulse Ox 98 F 68 18 137/68 97 09/20/17 12:00 09/20/17 12:00 09/20/17 12:00 09/20/17 12:00 09/20/17 05:53 Intake and Output: 09/20/17 09/20/17 06:59 18:59 Intake Total 1430 Output Total 425 Balance 1005 - Medications Medications: Current Medications Acetaminophen (Tylenol 325mg Tab) 650 mg PO Q6H PRN PRN Reason: Pain, moderate (4-7) Albuterol/Ipratropium (Duoneb 3 Mg/0.5 Mg (3 Ml) Ud) 3 ml IH [id number] [facility] Last Admin: 09/20/17 14:04 Dose: 3 ml Aspirin (Aspirin Chewable) 81 mg PO DAILY [facility] Last Admin: 09/20/17 10:17 Dose: 81 mg Azithromycin (Zithromax) 500 mg PO DAILY [facility] PRN Reason: Protocol Stop: 09/25/17 10:01 Last Admin: 09/20/17 10:17 Dose: 500 mg Enoxaparin Sodium (Lovenox) 40 mg SC DAILY [facility] PRN Reason: Protocol Last Admin: 09/20/17 10:17 Dose: 40 mg Famotidine (Pepcid) 20 mg PO 1000,2200 [facility] Last Admin: 09/20/17 10:17 Dose: 20 mg Gabapentin (Neurontin) 600 mg PO TID [facility] PRN Reason: Protocol Last Admin: 09/20/17 14:04 Dose: 600 mg Ceftriaxone Sodium (Rocephin 1 Gram Ivpb) 1 gm in 100 mls @ 100 mls/hr IVPB DAILY [facility] PRN Reason: Protocol Stop: 09/25/17 10:01 Last Admin: 09/20/17 10:16 Dose: 100 mls/hr Insulin Human Regular (Humulin R Low) 0 units SC ACHS [facility] PRN Reason: Protocol Last Admin: 09/20/17 12:30 Dose: 1 unit - Labs Labs: 09/20/17 06:30 09/20/17 06:30 - Constitutional Appears: Well, Non-toxic, No Acute Distress - Head Exam Head Exam: ATRAUMATIC, NORMOCEPHALIC - Eye Exam Eye Exam: EOMI, PERRL. absent: Scleral icterus - ENT Exam ENT Exam: Mucous Membranes Moist - Respiratory Exam Respiratory Exam: Chest Wall Tenderness (R sided ), Clear to Ausculation Bilateral, NORMAL BREATHING PATTERN Additional comments: minimal wheezes and ronchorus breath sounds on exam - Cardiovascular Exam Cardiovascular Exam: RRR. absent: Diastolic murmur, Murmur - GI/Abdominal Exam GI & Abdominal Exam: Soft, Normal Bowel Sounds. absent: Tenderness - Extremities Exam Additional comments: BL LE warm; dry to touch; TP/DP 2+ BL. R anterior thigh tender to palpation. Decreased ROM 2/2 pain of RLE. - Back Exam Back Exam: absent: CVA tenderness (L), CVA tenderness (R), vertebral tenderness - Neurological Exam Neurological Exam: Alert, Awake, Oriented x3 - Psychiatric Exam Psychiatric exam: Normal Affect, Normal Mood Assessment and Plan - Assessment and Plan (Free Text) Assessment: Pt. is a 61M w/ a PMH of DM2 and 50 pack year history who presented [place] [facility] on [place] w/ CC of R sided pleuritic CP and RLE pain. Upon CT Lung evaluation pt found to have atalectasic and emphysematous changes to lungs. CTAP also showed multiple stenotic changes to femoral, renal, and celiac arteries. Concerns right now are for lung malignancy, and PAD. Plan: Chest Pain /Dyspnea Obstx airway exacerbation vs Malignancy vs PNA vs ACS TROPS negative x2; EKG x2 w/o acute infarct CTAP: No PE; Centrilobular Emphysematous changes; Consolidation within azygous lobe posteriorly; Dependent groundglass density infiltrates and atelectatic changes B; scattered mediastinal lymph node enlargement 09/20 ABG wnl Blood Cx pending Urine Cx pending HIV pending WALKER pending TB Quant gold pending CRP: 40.80 Pulmonology consulted reccs appreciated ID consulted reccs appreciated Procal pending RPR pending Legionella Ag pending Cont Azithromycin 500 QD RLE Pain Most likely peripheral artery disease vs. LE VTE CTAP findings as below: Mural thrombus and dissection flap are visualized within the left common iliac artery. In retrospect, this appears to be chronic. Atherosclerosis and mural thrombus are identified the involving the iliac arteries bilaterally. There is approximately 50% stenosis of the right common and external iliac arteries. Stenoses are visualized of the left external and bilateral internal iliac arteries. There is mild narrowing or stenosis of the proximal celiac artery. There is approximately 50% stenosis of the proximal right renal artery. There is a proximally 70% stenosis of the bilateral superficial femoral arteries proximally. Additional stenoses are identified of the bilateral proximal common femoral and deep femoral arteries. LE Duplex negative Lipid Panel: Total Cholesterol 119; HDL 27; LDL 67; Triglycerides 108 ASCVD: 27.8% Abd Pain Some RUQ complaints at time of admission; multiple enhancing hepatic foci on CTAP; concerns of malignancy vs hemangiomas LFTs wnl Amylase/ Lipase wnl GI Consulted appreciate reccs Hypercalcemia - resolved Calcium 11.2 on admission; 10.1 this AM 09/19 EKG - QT 314; 09/20 EKG - QT 378 Hypophosphatemia Phos 2.3 on admission Neutra phos admin x1 today Recheck in AM DM2 w/ Neuropathy A1C 7.4 ISS 24H POC: 94-222 Cont home gabapentin 600 TID DIET: Carb Controlled DISPO: DC to home once medically optimized Prophylaxis: Lovenox + Pepcid Patient is to follow up w/ PMD Dr. Mcduffie post discharge. Case discussed w/ attending Dr. Vicenta Melissa - PGY1 <Slade Yadav - Last Filed: 09/20/17 17:38> Objective - Vital Signs/Intake and Output Vital Signs (last 24 hours): Temp Pulse Resp BP Pulse Ox 98 F 58 L 18 137/68 97 09/20/17 12:00 09/20/17 14:00 09/20/17 12:00 09/20/17 12:00 09/20/17 05:53 Intake and Output: 09/20/17 09/20/17 06:59 18:59 Intake Total 1430 780 Output Total 425 Balance 1005 780 - Medications Medications: Current Medications Acetaminophen (Tylenol 325mg Tab) 650 mg PO Q6H PRN PRN Reason: Pain, moderate (4-7) Albuterol/Ipratropium (Duoneb 3 Mg/0.5 Mg (3 Ml) Ud) 3 ml IH [id number] [facility] Last Admin: 09/20/17 14:04 Dose: 3 ml Aspirin (Aspirin Chewable) 81 mg PO DAILY [facility] Last Admin: 09/20/17 10:17 Dose: 81 mg Atorvastatin Calcium (Lipitor) 40 mg PO DIN [facility] Azithromycin (Zithromax) 500 mg PO DAILY [facility] PRN Reason: Protocol Stop: 09/25/17 10:01 Last Admin: 09/20/17 10:17 Dose: 500 mg Enoxaparin Sodium (Lovenox) 40 mg SC DAILY [facility] PRN Reason: Protocol Last Admin: 09/20/17 10:17 Dose: 40 mg Famotidine (Pepcid) 20 mg PO 1000,2200 [facility] Last Admin: 09/20/17 10:17 Dose: 20 mg Gabapentin (Neurontin) 600 mg PO TID [facility] PRN Reason: Protocol Last Admin: 09/20/17 14:04 Dose: 600 mg Ceftriaxone Sodium (Rocephin 1 Gram Ivpb) 1 gm in 100 mls @ 100 mls/hr IVPB DAILY [facility] PRN Reason: Protocol Stop: 09/25/17 10:01 Last Admin: 09/20/17 10:16 Dose: 100 mls/hr Insulin Human Regular (Humulin R Low) 0 units SC ACHS [facility] PRN Reason: Protocol Last Admin: 09/20/17 16:32 Dose: 1 unit - Labs Labs: 09/20/17 06:30 09/20/17 06:30 PT 16.0 SECONDS (9.4-12.5) H 09/20/17 14:30 INR 1.39 (0.93-1.08) H 09/20/17 14:30 APTT 40.3 Seconds (25.1-36.5) H 09/20/17 14:30 Attending/Attestation - Attestation I have personally seen and examined this patient.: Yes I have fully participated in the care of the patient.: Yes I have reviewed all pertinent clinical information, including history, physical exam and plan: Yes Notes (Text): 09/20/17 17:29 61 year old male with past medical history of diabetes and tobacco use who presented with complaint of right sided abdominal and chest pain. CT chest/abd/ pelvis was negative for PE; showed emphysematous changes, atelecactic and grounglass infiltrates, nonspecific mediastinal lymph nodes, mural thrombus involving left common iliac artery, 50% stenosis of proximal right renal artery , 70% stenosis of bilateral superficial femoral arteries and hemangiomas of liver. Serial cardiac enzymes are ordered to rule out ACS. Pulmonary evaluation was requested for CT findings and COPD. IR/vascular evaluation is requested as well. He is on antibiotics. Will follow up on dopplers. Will follow up on GI recommendations. He was counselled on smoking cessation. Slade Yadav MD Hospitalist.
[2017-09-20 15:16] LABS: INR 1.39 (0.93-1.08); PARTIAL THROMBOPLASTIN TIME 40.3 Seconds (25.1-36.5)
[2017-09-20 15:24] LABS: TROPONIN I < 0.01 ng/mL
[2017-09-20] MEDS ORDERED: Budesonide 0.5 mg/2 ml Inhal Susp UD IH SCH (20:00)
[2017-09-20] MEDS: Budesonide 0.5 mg/2 ml Inhal Susp UD IH SCH (21:05)
[2017-09-20] MEDS: Arformoterol 15 mcg/2 ml Inh Sol IH SCH (21:12)
--- NOTE | 2017-09-21 01:51 | CON ---
DATE: 09/20/2017 HISTORY OF PRESENT ILLNESS: This is a 61-year-old gentleman without significant past medical history except for diabetes and diabetic neuropath,y who presented to [facility] last night with right chest pain that was acute on and off, each episode lasting for half an hour, without alleviating or aggravating factors. Pain was radiating to the back. Pain was not associated with shortness of breath or diaphoresis. There was also no nausea, vomiting, diarrhea or constipation. 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 CT of the chest was also done, which revealed substantial centrilobular emphysema, some ground-glass opacifications, some consolidation in the azygos lobe posteriorly, ground-glass opacities bilaterally, and some mild lymphadenopathy with underlying subcarinal lymph node above 1 cm. Pulmonary consult was called for above findings. PAST MEDICAL HISTORY: Diabetes and alcohol abuse. PAST SURGICAL HISTORY: None. FAMILY HISTORY: Noncontributory. SOCIAL HISTORY: The patient is active smoker and he smokes about half a pack a day for 50 years. He used to drink alcohol, but quit 10 years ago. ALLERGIES: NKDA. HOME MEDICATIONS: Metformin. REVIEW OF SYSTEMS: Review of 12-organ systems other than mentioned in the history of present illness is negative except for the fact that the patient has morning cough, sometimes whitish, sometimes brownish in color of sputum production. He has been having this coughing spells for many years in the morning, almost everyday when he smokes. The patient is able to walk without limitation up to half an hour (unable to quantitate in yards or meters) without difficulties before admission to the hospital. PHYSICAL EXAMINATION: VITAL SIGNS: Temperature 98, blood pressure 137/68, respiratory rate 18, oxygen saturation 97% on room air, heart rate 68. ENT: Head and neck atraumatic. LUNGS: Clear to auscultation bilaterally. HEART: Regular rate and rhythm. S1 and S2 normal. ABDOMEN: Soft, nontender, and nondistended. MUSCULOSKELETAL: No C/C/E. SKIN: Moist. PSYCH: The patient is alert, awake, and oriented x3. LABORATORY DATA: WBC is 7.5, hemoglobin 13.1, platelet count 176. Sodium 142, potassium 3.7, chloride 108, carbon dioxide 25, BUN 14, creatinine 0.7, glucose 119. Troponin less than 0.01. C-reactive protein 40. TSH 0.23, but free T4 of 1.16, lipase 138, lactic acid 0.7, pH 7.39. IMAGING STUDIES: CT of the chest, abdomen and pelvis with IV contrast showed mural thrombus in the descending thoracic aorta without aneurysmal dilatation. No acute pulmonary embolism, bi-apical bullae, right side greater than left, emphysematous changes visualized bilaterally, which predominantly is centrilobular. There is a consolidation within the azygos lobe posteriorly suggestive of atelectatic change or infiltrate dependant ground-glass density infiltrates, and atelectatic changes bilaterally. Scattered nonspecific mediastinal lymph nodes with few mildly enlarged small bilateral hilar lymph nodes also visualized, also mural thrombus visualized within the left common iliac artery in retrospect based on radiology report appear to be chronic, atherosclerosis and mural thrombus identified involving the iliac arteries bilaterally. Approximately 50% stenosis of the right common and external iliac artery stenosis are visualized of the left external and bilateral internal iliac arteries, mild narrowing or stenosis of the proximal celiac artery. There is approximately 50% stenosis of the proximal right renal artery. There is approximately 70% stenosis of the bilateral superficial femoral arteries proximally. Scattered enhancing foci or lesions are identified within the liver, which are nonspecific. EKG showed normal sinus rhythm with left axis deviation, but no peaked T wakes, no specific ischemic changes. No right bundle-branch block. ASSESSMENT AND PLAN: This 61-year-old gentleman with emphysematous changes, some ground-glass opacification/consolidations, and minimal mediastinal lymphadenopathy in the setting of long-term smoking history, who presented to [facility] with right upper quadrant/right chest pain radiating to the right. The patient was found multiple dissection in the arterial maldonado of the aorta and iliac arteries and Vascular team was consulted for further management and recommendations. Meanwhile, Pulmonary consult was also called based on imaging findings of the chest. The patient has never been diagnosed with chronic obstructive pulmonary disease; however, I suspect based on chest CAT scan, that he has had chronic obstructive pulmonary disease for a long period of time. The patient does not have diabetes symptoms (no weight loss, no night sweats, no loss of appetite, tiredness, or fatigue). My suspicion for tuberculosis is very low; however, the decision whether to proceed with ruling out active tuberculosis will be deferred to Infectious Disease Service, a consult of which was requested by primary team. If primary team decides that if active tuberculosis has ruled out, I would start with QuantiFERON assay assessment and three acid-fast bacillus sputum analysis. I will hold triple inhaler therapy until tuberculosis is ruled out especially that the patient does not have signs or symptoms of chronic obstructive pulmonary disease exacerbation. He; however, does have signs of chronic stable chronic obstructive pulmonary disease and thus upon discharge, once Mycobacterium tuberculosis is ruled out, he would need to be on triple inhaler therapy, pulmonary rehab, infection prophylaxis with vaccination. I would also get echocardiogram to rule out pulmonary hypertension with or without right ventricular failure. We will continue target euvolemia, euglycemia, normothermia and oxygen saturation more than 90%. We will continue with deep venous thrombosis and gastrointestinal prophylaxis. Ismael Miller MD
[2017-09-21] MEDS: Albuterol-Ipratrop 3 mg / 0.5 (3 ml) UD IH SCH ×4 (02:12→20:50)
--- NOTE | 2017-09-21 07:04 | CP.PCM.PN ---
<Jeffrey Gamez - Last Filed: 09/21/17 13:40> Subjective - Date & Time of Evaluation Date of Evaluation: 09/21/17 Time of Evaluation: 10:00 - Subjective Subjective: GI Progress Note for Dr. Aime Gamez, PGY-3 IM Patient seen and examined at bedside. Still pending Liver US to assess questionable lesion on CT. No acute events reported overnight. No acute complaints; no reproducible chest pain today, denies shortness of breath, nausea , emesis, dysuria, diarrhea. Objective - Vital Signs/Intake and Output Vital Signs (last 24 hours): Temp Pulse Resp BP Pulse Ox 97.8 F 72 19 131/71 98 09/21/17 06:00 09/21/17 06:00 09/21/17 06:00 09/21/17 06:00 09/21/17 06:00 Intake and Output: 09/21/17 09/21/17 06:59 18:59 Intake Total 720 Output Total 3 Balance 717 - Medications Medications: Current Medications Acetaminophen (Tylenol 325mg Tab) 650 mg PO Q6H PRN PRN Reason: Pain, moderate (4-7) Albuterol/Ipratropium (Duoneb 3 Mg/0.5 Mg (3 Ml) Ud) 3 ml IH [id number] [facility] Last Admin: 09/21/17 02:12 Dose: Not Given Arformoterol Tartrate (Brovana) 15 mcg IH [id number] [facility] Last Admin: 09/20/17 21:12 Dose: 15 mcg Aspirin (Aspirin Chewable) 81 mg PO DAILY [facility] Last Admin: 09/20/17 10:17 Dose: 81 mg Atorvastatin Calcium (Lipitor) 40 mg PO DIN [facility] Last Admin: 09/20/17 17:46 Dose: 40 mg Azithromycin (Zithromax) 500 mg PO DAILY [facility] PRN Reason: Protocol Stop: 09/25/17 10:01 Last Admin: 09/20/17 10:17 Dose: 500 mg Budesonide (Pulmicort Respules) 0.5 mg IH [id number] [facility] Last Admin: 09/20/17 21:05 Dose: 0.5 mg Enoxaparin Sodium (Lovenox) 40 mg SC DAILY [facility] PRN Reason: Protocol Last Admin: 09/20/17 10:17 Dose: 40 mg Famotidine (Pepcid) 20 mg PO 1000,2200 [facility] Last Admin: 09/20/17 21:39 Dose: 20 mg Gabapentin (Neurontin) 600 mg PO TID [facility] PRN Reason: Protocol Last Admin: 09/20/17 17:46 Dose: 600 mg Ceftriaxone Sodium (Rocephin 1 Gram Ivpb) 1 gm in 100 mls @ 100 mls/hr IVPB DAILY [facility] PRN Reason: Protocol Stop: 09/25/17 10:01 Last Admin: 09/20/17 10:16 Dose: 100 mls/hr Insulin Human Regular (Humulin R Low) 0 units SC ACHS [facility] PRN Reason: Protocol Last Admin: 09/20/17 21:38 Dose: Not Given - Labs Labs: 09/20/17 06:30 09/20/17 06:30 PT 16.0 SECONDS (9.4-12.5) H 09/20/17 14:30 INR 1.39 (0.93-1.08) H 09/20/17 14:30 APTT 40.3 Seconds (25.1-36.5) H 09/20/17 14:30 - Additional Findings Additional findings: - Constitutional Appears: Well, Non-toxic, No Acute Distress - Head Exam Head Exam: ATRAUMATIC, NORMAL INSPECTION, NORMOCEPHALIC - Eye Exam Eye Exam: EOMI, Normal appearance. absent: Conjunctival injection, Scleral icterus Pupil Exam: absent: Fixed, Irregular - ENT Exam ENT Exam: Mucous Membranes Moist, Normal Exam - Neck Exam Neck exam: Positive for: Full Rom, Normal Inspection. Negative for: Lymphadenopathy - Respiratory Exam Respiratory Exam: Chest Wall Tenderness (reproducible tenderness to palpation along right lateral chest wall, along mid-clavicular line at ribs 3-7; tenderness at right lateral back along same ribs) Additional comments: Moderately decreased breath sounds in all steiner, no appreciable rales or ronchi on exam, mild end-expiratory wheeze appreciated at bilateral upper lobes Not tachypnic, no ameena cyanosis appreciated, not dyspnic with speech - Cardiovascular Exam Cardiovascular Exam: REGULAR RHYTHM, RRR, +S1, +S2. absent: Bradycardia, Tachycardia, Irregular Rhythm, JVD, +S4 - GI/Abdominal Exam GI & Abdominal Exam: Normal Bowel Sounds. absent: Diminished Bowel Sounds, Distended, Firm, Hyperactive Bowel Sounds, Hypoactive Bowel Sounds, Tenderness - Extremities Exam Extremities exam: Positive for: normal capillary refill, normal inspection, pedal pulses present. Negative for: calf tenderness, pedal edema, tenderness - Back Exam Back exam: absent: CVA tenderness (L), CVA tenderness (R) - Neurological Exam Neurological exam: Alert, Oriented x3 - Psychiatric Exam Psychiatric exam: Normal Affect, Normal Mood - Skin Skin Exam: Dry, Intact, Normal Color, Warm Assessment and Plan - Assessment and Plan (Free Text) Assessment: 61 yo M with PMH of DMII, prior EtOH abuse (quit 10 yrs prior), and heavy tobacco use who presented to [facility] with initial complaint of RUQ pain radiating to back, now reported by patient as R chest pain radiating to back. GI was consulted due to reported suspected liver hemangiomas on CTA chest/abd/pelvis obtained on arrival. 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 Mild narrowing or stenosis of the proximal celiac artery. ~50% stenosis of the proximal right renal artery. ~70% stenosis of the bilateral superficial femoral arteries proximally. Scattered enhancing foci/lesions in liver, nonspecific, may represent atypical hemangiomas, not present on prior CT -Still pending Liver US, if corresponding lesions on US are hyperechogenic, then most likely hemangioma and no MRI needed -Likely COPD with blebs due to findings on Chest CT; defer to Pulm for management -Undergoing TB r/o, in setting of possible TB liver lesion could be milliary TB , awaiting results of workup as per primary team and Pulm -Also followed by ID, Pulm; Vascular and IR consulted by primary team for mural thrombi and multiple arterial stenoses Patient seen, reviewed, and discussed with attending, Dr. Salomon <Aime,Kovil V - Last Filed: 09/21/17 23:08> Objective - Vital Signs/Intake and Output Vital Signs (last 24 hours): Temp Pulse Resp BP Pulse Ox 98.2 F 63 18 116/62 98 09/21/17 17:34 09/21/17 18:00 09/21/17 17:34 09/21/17 17:34 09/21/17 06:00 Intake and Output: 09/21/17 09/22/17 18:59 06:59 Intake Total 1260 Output Total 2 Balance 1258 - Medications Medications: Current Medications Acetaminophen (Tylenol 325mg Tab) 650 mg PO Q6H PRN PRN Reason: Pain, moderate (4-7) Albuterol/Ipratropium (Duoneb 3 Mg/0.5 Mg (3 Ml) Ud) 3 ml IH [id number] [facility] Last Admin: 09/21/17 20:50 Dose: 3 ml Arformoterol Tartrate (Brovana) 15 mcg IH [id number] [facility] Last Admin: 09/21/17 20:50 Dose: 15 mcg Aspirin (Aspirin Chewable) 81 mg PO DAILY [facility] Last Admin: 09/21/17 10:33 Dose: 81 mg Atorvastatin Calcium (Lipitor) 40 mg PO DIN [facility] Last Admin: 09/21/17 17:23 Dose: 40 mg Azithromycin (Zithromax) 500 mg PO DAILY [facility] PRN Reason: Protocol Stop: 09/25/17 10:01 Last Admin: 09/21/17 10:33 Dose: 500 mg Budesonide (Pulmicort Respules) 0.5 mg IH [id number] [facility] Last Admin: 09/21/17 20:51 Dose: 0.5 mg Enoxaparin Sodium (Lovenox) 40 mg SC DAILY [facility] PRN Reason: Protocol Last Admin: 09/21/17 10:33 Dose: 40 mg Famotidine (Pepcid) 20 mg PO 1000,2200 [facility] Last Admin: 09/21/17 22:58 Dose: 20 mg Gabapentin (Neurontin) 600 mg PO TID [facility] PRN Reason: Protocol Last Admin: 09/21/17 18:27 Dose: 600 mg Ceftriaxone Sodium (Rocephin 1 Gram Ivpb) 1 gm in 100 mls @ 100 mls/hr IVPB DAILY [facility] PRN Reason: Protocol Stop: 09/25/17 10:01 Last Admin: 09/21/17 10:33 Dose: 100 mls/hr Insulin Human Regular (Humulin R Low) 0 units SC ACHS [facility] PRN Reason: Protocol Last Admin: 09/21/17 22:58 Dose: 2 unit Nicotine (Nicoderm Cq) 1 patch TD DAILY [facility] - Labs Labs: 09/21/17 07:10 09/21/17 07:10 PT 16.0 SECONDS (9.4-12.5) H 09/20/17 14:30 INR 1.39 (0.93-1.08) H 09/20/17 14:30 APTT 40.3 Seconds (25.1-36.5) H 09/20/17 14:30 Attending/Attestation - Attestation I have personally seen and examined this patient.: Yes I have fully participated in the care of the patient.: Yes I have reviewed all pertinent clinical information, including history, physical exam and plan: Yes Notes (Text): p 09/21/17 23:08
[2017-09-21 07:32] LABS: BASO # 0.04 K/mm3 (0.0-2.0); BASO % 0.5 % (0.0-3.0); EOS # 0.2 (0.0-0.7); GRAN # 5.68 (1.4-6.5); GRAN % 69.3 % (50.0-68.0); HEMOGLOBIN 14.3 g/dL (14.0-18.0); LYMPH # 1.5 (1.2-3.4); LYMPH % 18.2 % (22.0-35.0); MEAN CELL VOLUME 80.6 fl (80.0-105.0); MEAN CORPUSCULAR HEMOGLOBIN 27.2 pg (25.0-35.0); MEAN CORPUSCULAR HGB CONC 33.7 g/dl (31.0-37.0); MEAN PLATELET VOLUME 11.1 fl (7.0-11.0); MONO # 0.8 (0.1-0.6); RBC 5.26 10^6/uL (3.5-6.1); RED CELL DISTRIBUTION WIDTH 13.7 % (11.5-14.5); WHITE BLOOD COUNT 8.2 10^3/ul (4.5-11.0)
[2017-09-21 07:38] LABS: ALB/GLOB RATIO 1.2 (1.1-1.8); ALBUMIN 4.1 g/dL (3.0-4.8); ALT/SGPT 27 U/L (7-56); AST/SGOT 25 U/L (17-59); BLOOD UREA NITROGEN 11 mg/dL (7-21); CALCIUM 10.9 mg/dL (8.4-10.5); GFR AFRICAN-AMERICAN > 60; GFR NON-AFRICAN AMERICAN > 60
--- NOTE | 2017-09-21 07:51 | CARD ---
APPROVED REPORT EKG Measurement Heart [id number] NC [id number] <Conclusion> Normal sinus rhythm Left axis deviation Septal infarct, age undetermined Inferior infarct, age undetermined Abnormal ECG
[2017-09-21] MEDS: Arformoterol 15 mcg/2 ml Inh Sol IH SCH ×2 (08:18→20:50)
[2017-09-21] MEDS: Budesonide 0.5 mg/2 ml Inhal Susp UD IH SCH ×2 (08:18→20:51)
[2017-09-21] MEDS: Insulin Reg-LOW-Coverage SC SCH ×4 (08:30→22:58)
--- NOTE | 2017-09-21 08:31 | CON ---
DATE: 09/20/2017 LOCATION: The patient is in bed, was seen earlier today in 270, bed 2. CHIEF COMPLAINT: Right-sided pleuritic chest pain times several days. HISTORY OF PRESENT ILLNESS: This is a 61-year-old male who is originally from [place], who has history of alcohol abuse and diabetes mellitus, who is admitted with a right-sided chest pain, pleuritic in nature and radiating to the back with minimal cough. No fevers reported. No abdominal pain. No diarrhea. No constipation. No headaches. No blurred vision. PAST MEDICAL HISTORY: Significant for diabetes mellitus and alcohol use. PAST SURGICAL HISTORY: Noncontributory. ALLERGIES: THE PATIENT HAS NO KNOWN ALLERGIES TO ANY ANTIBIOTICS. MEDICATIONS: Neurontin and metformin. PHYSICAL EXAMINATION: GENERAL: On exam, the patient is in bed, answering questions appropriately, in no acute distress. VITAL SIGNS: Temperature of 98; heart rate of 102, it was up to 120; respiratory rate of 20; saturating at 96% to 99%; blood pressure of 130/70. HEENT: Unremarkable. NECK: Supple. LUNGS: Have decreased breath sounds. HEART: Normal S1, S2. ABDOMEN: Soft, nontender. No organomegaly. No rebound. No guarding. No masses. LABORATORY DATA: Reveals the patient's white count of 10,000, hemoglobin of 14, 70% granulocytosis, 20% lymphocytosis. ABGs are noted to have a pH of 7.39, pCO2 is 35 with a pO2 of 66, the h-bicarb is 21, saturating at 96% and FiO2 of 21%. Chemistries reveals BUN of 19, creatinine of 0.9, calcium is 11, AST is 23, ALT is 19, alk phos , amylase is 86, lipase is 138, phosphorus is 2.3. Urinalysis is noted, 2 to 5 wbc's, 15 to 20 rbc's, negative leukocyte esterase, negative nitrites, negative ketones, there is glucose, there are negative proteins. The patient's toxicology screen is negative. Microbiology is pending. No previous microbiology from previous admissions available. The patient had a chest x-ray, which was reported to be negative. EKG, which showed QTc of 422 and sinus tachycardia, possible left atrial enlargement, left-axis deviation, inferior infarct, age undetermined. Cannot rule out anteroseptal infarct. Emergency room chart is reviewed. The patient also had a CAT scan of the chest and CAT scan of the abdomen and pelvis. Angiography of the chest with intravenous contrast, pulmonary arteries were seen. No definite intraluminal filling defect to suggest pulmonary emboli in the aorta. Mural thrombus was identified in the descending thoracic aorta. No acute pulmonary emboli. There are biapical bullae lesions, right-sided greater than the left. There are emphysematous changes predominantly centrilobar. There is a consolidation in the lobe, atelectasis, infiltrates and dependent ground-glass density infiltrates and atelectasis with nonspecific mediastinal lymph nodes, mildly enlarged. History and physical examination is reviewed written by and consultation by Dr. Niko Pierre, his partial evaluation not completed and same for , no assessment at this time. ASSESSMENT AND PLAN: A 61-year-old male who is [place] originally with diabetes, last trip was 5 years ago at [place]. He has never been exposed to tuberculosis as far as he knows. Presenting with right-sided chest pain, now with #1 is bilateral infiltrate, bilateral community-acquired pneumonia with mural thrombus in descending thoracic aorta in a patient who is diabetic. We will treat with ceftriaxone, Zithromax and order blood cultures, urine cultures, sputum cultures and urine for Legionella antigen, human immunodeficiency virus, RPR and FTA, and QuantiFERON has been ordered. Procalcitonin will be ordered and pancultures. Treat with ceftriaxone and Zithromax at this point. Dopplers of lower extremities also has been ordered. We will make further recommendations upon availability of initial results and follow up closely with you. Coleman Forrester MD
--- NOTE | 2017-09-21 09:19 | US ---
HISTORY: Leg pain and swelling. Evaluate for DVT PHYSICIAN(S): Den Ralph MD. TECHNIQUE: Duplex sonography and color-flow Doppler with graded compression were used to evaluate the deep venous systems of both lower extremities. FINDINGS: The visualized deep venous systems of both lower extremities are sonographically normal and compressible. Normal wave forms and augmentation are seen. There is no sonographic evidence for deep venous thrombosis in the visualized segments of both lower extremities. IMPRESSION: No sonographic evidence for deep venous thrombosis in the visualized segments of both lower extremities.
--- NOTE | 2017-09-21 10:19 | US ---
HISTORY: assess reported R liver lesion on CT COMPARISON: None. TECHNIQUE: Sonographic evaluation of the right upper quadrant of the abdomen. FINDINGS: LIVER: Measures 17.1 cm in length. Normal echogenicity of the liver parenchyma. No mass. No intrahepatic bile duct dilatation. The lesions in question may be too small to discover sonographically. GALLBLADDER: Unremarkable. No gallstones. COMMON BILE DUCT: Measures 6.4 mm. No stones. No dilatation. PANCREAS: Poorly evaluated due to overlying bowel gas. RIGHT KIDNEY: Measures 10.0 cm in length. Normal echogenicity. No calculus, mass, or hydronephrosis. AORTA: No aneurysmal dilatation. IVC: Unremarkable. OTHER FINDINGS: None . IMPRESSION: No definitive hepatic lesions identified or intrahepatic biliary duct dilatation. Enhancing lesions remain was somewhat worrisome seen in prior and pelvis CT 09/19/2017 and may be too small to visualize sonographically. Follow-up MRI is advised with and without intravenous gadolinium for more definitive evaluation of the liver as previously recommended. Pancreas not identified due to extensive overlying bowel gas.
[2017-09-21] MEDS: Enoxaparin 40 mg Syringe SC SCH (10:33)
[2017-09-21] MEDS: cefTRIAXone 1 gm 1 GM/100 ML BAG IVPB SCH (10:33)
--- NOTE | 2017-09-21 12:28 | PN ---
DATE: 09/21/2017 SUBJECTIVE: The patient is in bed, in no acute distress. PHYSICAL EXAMINATION: VITAL SIGNS: On exam, temperature is 97, blood pressure is 130/70, respiratory rate of 18. HEENT: Examination of HEENT is unremarkable. NECK: Supple. LUNGS: Have decreased breath sounds. HEART: Normal S1, S2. ABDOMEN: Soft, nontender. LABORATORY DATA: Laboratory examination reveals the white count is 8.2, hemoglobin of 14, platelets of 190. Coagulation is noted. Chemistries reveal a BUN of 11, creatinine of 0.7. Procalcitonin is less than 0.05. Urinalysis is noted. RPR is nonreactive. Urine for Legionella antigen is nonreactive. Microbiology reveals the blood cultures are negative. Urine cultures are negative. progress note from today is reviewed. The patient's procalcitonin is less than 0.05. His calcium is 10.9. ASSESSMENT AND PLAN: A 61-year-old male, originally from [place], seen early this morning in 270, bed 2. No exposure to tuberculosis as far as he knows. 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 Waiting for sputum, waiting for negative acid-fast bacillus smear and/or QuantiFERON negative. We will check on the human immunodeficiency virus. If the acid-fast bacillus smear is negative once, we can discontinue the isolation and discontinue the ceftriaxone and discharge on p.o. Zithromax. The hypercalcemia is concerning. We will follow with you. Coleman Forrester MD
--- NOTE | 2017-09-21 13:42 | US ---
PROCEDURE: Lower extremity KATE exam HISTORY: Peripheral vascular disease. Diabetes. Smoker. PHYSICIAN(S): Den Ralph MD. FINDINGS: The resting KATE's are mildly abnormal: Right, 0.79 and left, 0.75 The brachial systolic pressures are symmetric. The high thigh pressures are symmetric. The left high thigh PVR waveform is decreased in amplitude compared to the right. This is of uncertain significance. The calf PVR waveforms augment normally. No significant gradients are noted across the thighs. There is a 37 mm gradient across the left knee. Left ankle and metatarsal waveforms are blunted compared to the right. This is consistent with distal left SFA, popliteal, and/ or trifurcation disease. IMPRESSION: 1. Mildly abnormal ABIs at rest. 2. Distal left SFA, popliteal, and/ or trifurcation disease
--- NOTE | 2017-09-21 23:57 | CP.PCM.PN ---
<Kee Melissa - Last Filed: 09/22/17 01:28> Subjective - Date & Time of Evaluation Date of Evaluation: 09/21/17 Time of Evaluation: 23:57 - Subjective Subjective: Kee Melissa DO - PGY 1 IM RESIDENT - MEDICINE PROGRESS NOTE Pt seen and eval this AM; No acute events overnight. Pt. still has complaints of pleuritic reproducible R sided CP however pt feels some improvement. RLE pain has moved from anterior thigh to medical aspect of right thigh; patient w/ complaints of some minor pain w/ ambulation. 12 Point ROS otherwise negative. Objective - Vital Signs/Intake and Output Vital Signs (last 24 hours): Temp Pulse Resp BP Pulse Ox 98.2 F 63 18 116/62 98 09/21/17 17:34 09/21/17 18:00 09/21/17 17:34 09/21/17 17:34 09/21/17 06:00 Intake and Output: 09/21/17 09/22/17 18:59 06:59 Intake Total 1260 Output Total 2 Balance 1258 - Medications Medications: Current Medications Acetaminophen (Tylenol 325mg Tab) 650 mg PO Q6H PRN PRN Reason: Pain, moderate (4-7) Albuterol/Ipratropium (Duoneb 3 Mg/0.5 Mg (3 Ml) Ud) 3 ml IH [id number] [facility] Last Admin: 09/21/17 20:50 Dose: 3 ml Arformoterol Tartrate (Brovana) 15 mcg IH [id number] [facility] Last Admin: 09/21/17 20:50 Dose: 15 mcg Aspirin (Aspirin Chewable) 81 mg PO DAILY [facility] Last Admin: 09/21/17 10:33 Dose: 81 mg Atorvastatin Calcium (Lipitor) 40 mg PO DIN [facility] Last Admin: 09/21/17 17:23 Dose: 40 mg Azithromycin (Zithromax) 500 mg PO DAILY [facility] PRN Reason: Protocol Stop: 09/25/17 10:01 Last Admin: 09/21/17 10:33 Dose: 500 mg Budesonide (Pulmicort Respules) 0.5 mg IH [id number] [facility] Last Admin: 09/21/17 20:51 Dose: 0.5 mg Enoxaparin Sodium (Lovenox) 40 mg SC DAILY [facility] PRN Reason: Protocol Last Admin: 09/21/17 10:33 Dose: 40 mg Famotidine (Pepcid) 20 mg PO 1000,2200 [facility] Last Admin: 09/21/17 22:58 Dose: 20 mg Gabapentin (Neurontin) 600 mg PO TID [facility] PRN Reason: Protocol Last Admin: 09/21/17 18:27 Dose: 600 mg Ceftriaxone Sodium (Rocephin 1 Gram Ivpb) 1 gm in 100 mls @ 100 mls/hr IVPB DAILY [facility] PRN Reason: Protocol Stop: 09/25/17 10:01 Last Admin: 09/21/17 10:33 Dose: 100 mls/hr Insulin Human Regular (Humulin R Low) 0 units SC ACHS [facility] PRN Reason: Protocol Last Admin: 09/21/17 22:58 Dose: 2 unit Nicotine (Nicoderm Cq) 1 patch TD DAILY [facility] - Labs Labs: 09/21/17 07:10 09/21/17 07:10 PT 16.0 SECONDS (9.4-12.5) H 09/20/17 14:30 INR 1.39 (0.93-1.08) H 09/20/17 14:30 APTT 40.3 Seconds (25.1-36.5) H 09/20/17 14:30 - Constitutional Appears: Well, Non-toxic, No Acute Distress - Head Exam Head Exam: ATRAUMATIC, NORMOCEPHALIC - Eye Exam Eye Exam: EOMI. absent: Scleral icterus - ENT Exam ENT Exam: Mucous Membranes Moist - Respiratory Exam Respiratory Exam: Chest Wall Tenderness (R>L), NORMAL BREATHING PATTERN. absent : Rales Additional comments: Pain with deep inspiration; some ronchorus sounds - Cardiovascular Exam Cardiovascular Exam: RRR, +S1, +S2. absent: Murmur - GI/Abdominal Exam GI & Abdominal Exam: Soft, Normal Bowel Sounds. absent: Tenderness - Extremities Exam Additional comments: BL LE warm w/ 2+ DP/TP pulses on both sides; R thigh pain along medial aspect of thigh; - Back Exam Back Exam: absent: CVA tenderness (L), CVA tenderness (R), vertebral tenderness - Neurological Exam Neurological Exam: Alert, Awake, Oriented x3 Assessment and Plan - Assessment and Plan (Free Text) Assessment: Pt. is a 61M w/ a PMH of DM2 and a 60 pack year smoking hx who presented to [facility] on 09/19 CC of R sided pleuritic CP and RLE pain. 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 GI following reccs pending US report; Pulm following recc Echocardiogram to r/o Pulm HTN ; ID following recc DC isolation pending neg AFBx1; KATE mildly abnlormal at R, 0.79; and L, 0.75. Plan: Chest Pain /Dyspnea Obstx airway exacerbation vs Malignancy vs PNA vs ACS TROPS negative x2; EKG x2 w/o acute infarct CTAP: No PE; Centrilobular Emphysematous changes; Consolidation within azygous lobe posteriorly; Dependent groundglass density infiltrates and atelectatic changes B; scattered mediastinal lymph node enlargement 09/20 ABG wnl Blood Cx negative x2 in 48H Urine Cx negative in 48H HIV pending WALKER pending TB Quant gold pending CRP: 40.80 Pulmonology consulted reccs appreciated ID consulted reccs appreciated Procal negative RPR negative Legionella Ag negative Cont Azithromycin 500 QD Cont Ceftriaxone 1gm QD RLE Pain Most likely peripheral artery disease vs. LE VTE CTAP findings as below: Mural thrombus and dissection flap are visualized within the left common iliac artery. In retrospect, this appears to be chronic. Atherosclerosis and mural thrombus are identified the involving the iliac arteries bilaterally. There is approximately 50% stenosis of the right common and external iliac arteries. Stenoses are visualized of the left external and bilateral internal iliac arteries. There is mild narrowing or stenosis of the proximal celiac artery. There is approximately 50% stenosis of the proximal right renal artery. There is a proximally 70% stenosis of the bilateral superficial femoral arteries proximally. Additional stenoses are identified of the bilateral proximal common femoral and deep femoral arteries. KATE: 0.79R 0.75L LE Duplex negative Lipid Panel: Total Cholesterol 119; HDL 27; LDL 67; Triglycerides 108 ASCVD: 27.8% Abd Pain Some RUQ complaints at time of admission; multiple enhancing hepatic foci on CTAP; concerns of malignancy vs hemangiomas Abd US: No defintive hepatic lesions identified or intrahepatic biliary duct dilatation. Enhancing lesions seen on CT may be too small to visualize; Followup MRI w/o gadollinium is advised LFTs wnl Amylase/ Lipase wnl GI Consulted Reccs pending U/S Report Hypercalcemia - unresolved Calcium 11.2 on admission; 10.9 this AM 09/19 EKG - QT 314; 09/20 EKG - QT 378 Hypophosphatemia - resolved Phos 2.3 on admission Neutra phos admin x1 yesterda Phos 2.5 today DM2 w/ Neuropathy A1C 7.4 ISS LOW 24H POC: 114-203 Cont home gabapentin 600 TID Tobacco Cessation Nicotine 21mg Patch DIET: Carb Controlled DISPO: DC to home once medically optimized Prophylaxis: Lovenox + Pepcid Patient is to follow up w/ PMD Dr. Mcduffie post discharge. Case discussed w/ attending Dr. Vicenta Melissa DO - PGY1 RESIDENT - PAGER [phone] <Slade Yadav - Last Filed: 09/22/17 06:53> Objective - Vital Signs/Intake and Output Vital Signs (last 24 hours): Temp Pulse Resp BP Pulse Ox 98.0 F 78 19 141/78 97 09/22/17 05:50 09/22/17 05:50 09/22/17 05:50 09/22/17 05:50 09/22/17 05:50 Intake and Output: 09/21/17 09/22/17 18:59 06:59 Intake Total 1260 840 Output Total 2 5 Balance 1258 835 - Medications Medications: Current Medications Acetaminophen (Tylenol 325mg Tab) 650 mg PO Q6H PRN PRN Reason: Pain, moderate (4-7) Albuterol/Ipratropium (Duoneb 3 Mg/0.5 Mg (3 Ml) Ud) 3 ml IH [id number] [facility] Last Admin: 09/22/17 01:27 Dose: Not Given Arformoterol Tartrate (Brovana) 15 mcg IH [id number] [facility] Last Admin: 09/21/17 20:50 Dose: 15 mcg Aspirin (Aspirin Chewable) 81 mg PO DAILY [facility] Last Admin: 09/21/17 10:33 Dose: 81 mg Atorvastatin Calcium (Lipitor) 40 mg PO DIN [facility] Last Admin: 09/21/17 17:23 Dose: 40 mg Azithromycin (Zithromax) 500 mg PO DAILY [facility] PRN Reason: Protocol Stop: 09/25/17 10:01 Last Admin: 09/21/17 10:33 Dose: 500 mg Budesonide (Pulmicort Respules) 0.5 mg IH [id number] [facility] Last Admin: 09/21/17 20:51 Dose: 0.5 mg Enoxaparin Sodium (Lovenox) 40 mg SC DAILY [facility] PRN Reason: Protocol Last Admin: 09/21/17 10:33 Dose: 40 mg Famotidine (Pepcid) 20 mg PO 1000,2200 [facility] Last Admin: 09/21/17 22:58 Dose: 20 mg Gabapentin (Neurontin) 600 mg PO TID [facility] PRN Reason: Protocol Last Admin: 09/21/17 18:27 Dose: 600 mg Ceftriaxone Sodium (Rocephin 1 Gram Ivpb) 1 gm in 100 mls @ 100 mls/hr IVPB DAILY [facility] PRN Reason: Protocol Stop: 09/25/17 10:01 Last Admin: 09/21/17 10:33 Dose: 100 mls/hr Insulin Detemir (Levemir) 10 unit SC DAILY [facility] Insulin Human Regular (Humulin R Med) 0 units SC ACHS [facility] PRN Reason: Protocol Nicotine (Nicoderm Cq) 1 patch TD DAILY [facility] - Labs Labs: 09/21/17 07:10 09/21/17 07:10 PT 16.0 SECONDS (9.4-12.5) H 09/20/17 14:30 INR 1.39 (0.93-1.08) H 09/20/17 14:30 APTT 40.3 Seconds (25.1-36.5) H 09/20/17 14:30 Attending/Attestation - Attestation I have personally seen and examined this patient.: Yes I have fully participated in the care of the patient.: Yes I have reviewed all pertinent clinical information, including history, physical exam and plan: Yes Notes (Text): 09/21/17 61 year old male with past medical history of diabetes and tobacco use who presented with complaint of right sided abdominal and chest pain. CT chest/abd/ pelvis was negative for PE; showed emphysematous changes, atelecactic and grounglass infiltrates, nonspecific mediastinal lymph nodes, mural thrombus involving left common iliac artery, 50% stenosis of proximal right renal artery , 70% stenosis of bilateral superficial femoral arteries and hemangiomas of liver. Serial cardiac enzymes were negative and ACS has been ruled out. Pulmonary evaluation was appreciated for CT findings and COPD. IR evaluation was requested. He is on antibiotics as per ID. Dopplers and US today were reviewed. Will follow up on GI recommendations. He was counselled on smoking cessation. Slade Yadav MD Hospitalist.
[2017-09-22] MEDS: Albuterol-Ipratrop 3 mg / 0.5 (3 ml) UD IH SCH ×4 (01:27→20:06)
[2017-09-22] MEDS: Insulin Reg-MEDIUM-Coverage SC SCH ×4 (07:57→17:39)
[2017-09-22] MEDS: Arformoterol 15 mcg/2 ml Inh Sol IH SCH ×2 (08:03→20:06)
[2017-09-22] MEDS: Budesonide 0.5 mg/2 ml Inhal Susp UD IH SCH ×2 (08:03→20:06)
--- NOTE | 2017-09-22 08:11 | CP.PCM.PN ---
<Jeffrey Gamez - Last Filed: 09/22/17 13:05> Subjective - Date & Time of Evaluation Date of Evaluation: 09/22/17 Time of Evaluation: 09:00 - Subjective Subjective: GI Progress Note for Dr. Aime Gamez, PGY-3 IM Patient seen and examined at bedside. Liver US obtained, unable to visualize questionable lesions, so MRI ordered. No acute events reported overnight. No acute complaints; no reproducible chest pain today, denies shortness of breath, nausea, emesis, dysuria, diarrhea. Objective - Vital Signs/Intake and Output Vital Signs (last 24 hours): Temp Pulse Resp BP Pulse Ox 98.0 F 78 19 141/78 97 09/22/17 05:50 09/22/17 05:50 09/22/17 05:50 09/22/17 05:50 09/22/17 05:50 Intake and Output: 09/22/17 09/22/17 06:59 18:59 Intake Total 840 Output Total 5 Balance 835 - Medications Medications: Current Medications Acetaminophen (Tylenol 325mg Tab) 650 mg PO Q6H PRN PRN Reason: Pain, moderate (4-7) Albuterol/Ipratropium (Duoneb 3 Mg/0.5 Mg (3 Ml) Ud) 3 ml IH [id number] [facility] Last Admin: 09/22/17 01:27 Dose: Not Given Arformoterol Tartrate (Brovana) 15 mcg IH [id number] [facility] Last Admin: 09/21/17 20:50 Dose: 15 mcg Aspirin (Aspirin Chewable) 81 mg PO DAILY [facility] Last Admin: 09/21/17 10:33 Dose: 81 mg Atorvastatin Calcium (Lipitor) 40 mg PO DIN [facility] Last Admin: 09/21/17 17:23 Dose: 40 mg Azithromycin (Zithromax) 500 mg PO DAILY [facility] PRN Reason: Protocol Stop: 09/25/17 10:01 Last Admin: 09/21/17 10:33 Dose: 500 mg Budesonide (Pulmicort Respules) 0.5 mg IH [id number] [facility] Last Admin: 09/21/17 20:51 Dose: 0.5 mg Enoxaparin Sodium (Lovenox) 40 mg SC DAILY [facility] PRN Reason: Protocol Last Admin: 09/21/17 10:33 Dose: 40 mg Famotidine (Pepcid) 20 mg PO 1000,2200 [facility] Last Admin: 09/21/17 22:58 Dose: 20 mg Gabapentin (Neurontin) 600 mg PO TID [facility] PRN Reason: Protocol Last Admin: 09/21/17 18:27 Dose: 600 mg Ceftriaxone Sodium (Rocephin 1 Gram Ivpb) 1 gm in 100 mls @ 100 mls/hr IVPB DAILY [facility] PRN Reason: Protocol Stop: 09/25/17 10:01 Last Admin: 09/21/17 10:33 Dose: 100 mls/hr Insulin Human Regular (Humulin R Med) 0 units SC ACHS [facility] PRN Reason: Protocol Last Admin: 09/22/17 07:57 Dose: 3 units Nicotine (Nicoderm Cq) 1 patch TD DAILY [facility] - Labs Labs: 09/21/17 07:10 09/21/17 07:10 PT 16.0 SECONDS (9.4-12.5) H 09/20/17 14:30 INR 1.39 (0.93-1.08) H 09/20/17 14:30 APTT 40.3 Seconds (25.1-36.5) H 09/20/17 14:30 - Additional Findings Additional findings: - Constitutional Appears: Well, Non-toxic, No Acute Distress - Head Exam Head Exam: ATRAUMATIC, NORMAL INSPECTION, NORMOCEPHALIC - Eye Exam Eye Exam: EOMI, Normal appearance. absent: Conjunctival injection, Scleral icterus Pupil Exam: absent: Fixed, Irregular - ENT Exam ENT Exam: Mucous Membranes Moist, Normal Exam - Neck Exam Neck exam: Positive for: Full Rom, Normal Inspection. Negative for: Lymphadenopathy - Respiratory Exam Respiratory Exam: Chest Wall Tenderness (reproducible tenderness to palpation along right lateral chest wall, along mid-clavicular line at ribs 3-7; tenderness at right lateral back along same ribs) Additional comments: Moderately decreased breath sounds in all steiner, no appreciable rales or ronchi on exam, mild end-expiratory wheeze appreciated at bilateral upper lobes Not tachypnic, no ameena cyanosis appreciated, not dyspnic with speech - Cardiovascular Exam Cardiovascular Exam: REGULAR RHYTHM, RRR, +S1, +S2. absent: Bradycardia, Tachycardia, Irregular Rhythm, JVD, +S4 - GI/Abdominal Exam GI & Abdominal Exam: Normal Bowel Sounds. absent: Diminished Bowel Sounds, Distended, Firm, Hyperactive Bowel Sounds, Hypoactive Bowel Sounds, Tenderness - Extremities Exam Extremities exam: Positive for: normal capillary refill, normal inspection, pedal pulses present. Negative for: calf tenderness, pedal edema, tenderness - Back Exam Back exam: absent: CVA tenderness (L), CVA tenderness (R) - Neurological Exam Neurological exam: Alert, Oriented x3 - Psychiatric Exam Psychiatric exam: Normal Affect, Normal Mood - Skin Skin Exam: Dry, Intact, Normal Color, Warm Assessment and Plan - Assessment and Plan (Free Text) Assessment: 61 yo M with PMH of DMII, prior EtOH abuse (quit 10 yrs prior), and heavy tobacco use who presented to [facility] with initial complaint of RUQ pain radiating to back, now reported by patient as R chest pain radiating to back. GI was consulted due to reported suspected liver hemangiomas on CTA chest/abd/pelvis obtained on arrival. Now pending MRI with and without contrast to assess liver lesions. 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 Mild narrowing or stenosis of the proximal celiac artery. ~50% stenosis of the proximal right renal artery. ~70% stenosis of the bilateral superficial femoral arteries proximally. Scattered enhancing foci/lesions in liver, nonspecific, may represent atypical hemangiomas, not present on prior CT -Lesions unable to be assessed on US, so MRI with and without contrast ordered, will follow up -Likely COPD with blebs due to findings on Chest CT; defer to Pulm for management -Undergoing TB r/o, in setting of possible TB liver lesion could be milliary TB , awaiting results of workup as per primary team and Pulm -Also followed by ID, Pulm; Vascular and IR consulted by primary team for mural thrombi and multiple arterial stenoses Patient seen, reviewed, and discussed with attending, Dr. Salomon <Marisol Salomon V - Last Filed: 09/23/17 00:07> Objective - Vital Signs/Intake and Output Vital Signs (last 24 hours): Temp Pulse Resp BP Pulse Ox 98 F 87 21 133/78 99 09/22/17 17:23 09/22/17 17:23 09/22/17 17:23 09/22/17 17:23 09/22/17 07:40 Intake and Output: 09/22/17 09/23/17 18:59 06:59 Intake Total 820 Balance 820 - Medications Medications: Current Medications Acetaminophen (Tylenol 325mg Tab) 650 mg PO Q6H PRN PRN Reason: Pain, moderate (4-7) Albuterol/Ipratropium (Duoneb 3 Mg/0.5 Mg (3 Ml) Ud) 3 ml IH [id number] [facility] Last Admin: 09/22/17 20:06 Dose: 3 ml Arformoterol Tartrate (Brovana) 15 mcg IH [id number] [facility] Last Admin: 09/22/17 20:06 Dose: 15 mcg Aspirin (Aspirin Chewable) 81 mg PO DAILY [facility] Last Admin: 09/22/17 09:27 Dose: 81 mg Atorvastatin Calcium (Lipitor) 40 mg PO DIN [facility] Last Admin: 09/22/17 17:39 Dose: 40 mg Azithromycin (Zithromax) 500 mg PO DAILY [facility] PRN Reason: Protocol Stop: 09/25/17 10:01 Last Admin: 09/22/17 09:27 Dose: 500 mg Budesonide (Pulmicort Respules) 0.5 mg IH [id number] [facility] Last Admin: 09/22/17 20:06 Dose: 0.5 mg Enoxaparin Sodium (Lovenox) 40 mg SC DAILY [facility] PRN Reason: Protocol Last Admin: 09/22/17 09:27 Dose: 40 mg Famotidine (Pepcid) 20 mg PO 1000,2200 [facility] Last Admin: 09/22/17 21:10 Dose: 20 mg Gabapentin (Neurontin) 600 mg PO TID [facility] PRN Reason: Protocol Last Admin: 09/22/17 17:39 Dose: 600 mg Glipizide (Glucotrol) 5 mg PO ACB [facility] Last Admin: 09/22/17 09:27 Dose: 5 mg Ceftriaxone Sodium (Rocephin 1 Gram Ivpb) 1 gm in 100 mls @ 100 mls/hr IVPB DAILY [facility] PRN Reason: Protocol Stop: 09/25/17 10:01 Last Admin: 09/22/17 09:28 Dose: 100 mls/hr Sodium Chloride (Sodium Chloride 0.9%) 1,000 mls @ 100 mls/hr IV .Q10H [facility] Last Admin: 09/22/17 18:25 Dose: 100 mls/hr Insulin Human Regular (Humulin R Med) 0 units SC ACHS [facility] PRN Reason: Protocol Last Admin: 09/22/17 17:39 Dose: 1 units Nicotine (Nicoderm Cq) 1 patch TD DAILY [facility] Last Admin: 09/22/17 09:27 Dose: 1 patch Potassium Phos/Sodium Phos (Neutra-Phos) 1 pkt PO TID [facility] Last Admin: 09/22/17 17:39 Dose: 1 pkt - Labs Labs: 09/22/17 08:15 09/22/17 08:15 PT 16.0 SECONDS (9.4-12.5) H 09/20/17 14:30 INR 1.39 (0.93-1.08) H 09/20/17 14:30 APTT 40.3 Seconds (25.1-36.5) H 09/20/17 14:30 Attending/Attestation - Attestation I have personally seen and examined this patient.: Yes I have fully participated in the care of the patient.: Yes I have reviewed all pertinent clinical information, including history, physical exam and plan: Yes Notes (Text): This is an addendum to GI progress report dictated by the Pilot Plant Operator.The patient was seen and examined earlier. Medical records, lab studies, imagings were reviewed. Last 24 hours events reviewed. Agreed with the above treatment plan as outlined in Pilot Plant Operator 's notes the with the addition of the following 09/23/17 00:07
--- NOTE | 2017-09-22 08:21 | PN ---
DATE: 09/21/2017 TIME: 01:40 p.m. SUBJECTIVE: I reviewed the patient's KATE/PVR exam and CT with contrast. He has moderate atherosclerotic change noted at multiple levels. He was evaluated by Vascular Surgery and noted to have palpable pulses. No symptoms of PVD were documented. At this time, aggressive risk factor modification should be implemented. If the patient has claudication, he can be evaluated as an outpatient. No further vascular workup or intervention at this time. Den Ralph MD [facility] # [id number] [facility]TD[facility]ade
[2017-09-22 08:29] LABS: HEMOGLOBIN 13.9 g/dL (14.0-18.0); MEAN CELL VOLUME 79.8 fl (80.0-105.0); MEAN CORPUSCULAR HEMOGLOBIN 26.7 pg (25.0-35.0); MEAN CORPUSCULAR HGB CONC 33.5 g/dl (31.0-37.0); MEAN PLATELET VOLUME 10.9 fl (7.0-11.0); RBC 5.2 10^6/uL (3.5-6.1); RED CELL DISTRIBUTION WIDTH 13.6 % (11.5-14.5); WHITE BLOOD COUNT 7.2 10^3/ul (4.5-11.0)
[2017-09-22 09:21] LABS: ALB/GLOB RATIO 1.2 (1.1-1.8); ALBUMIN 3.8 g/dL (3.0-4.8); ALT/SGPT 24 U/L (7-56); AST/SGOT 18 U/L (17-59); BLOOD UREA NITROGEN 14 mg/dL (7-21); CALCIUM 10.9 mg/dL (8.4-10.5); GFR AFRICAN-AMERICAN > 60; GFR NON-AFRICAN AMERICAN > 60
[2017-09-22] MEDS: Enoxaparin 40 mg Syringe SC SCH (09:27)
[2017-09-22] MEDS: cefTRIAXone 1 gm 1 GM/100 ML BAG IVPB SCH (09:28)
[2017-09-22] MEDS ORDERED: Insulin Detemir 100 units/ml Vial (Levemir) SC SCH (10:00)
[2017-09-22] MEDS: Potassium & Sodium Phosphate PO SCH ×3 (11:00→17:39)
--- NOTE | 2017-09-22 13:11 | RAD ---
PROCEDURE: Right Femur Radiographs. HISTORY: pain COMPARISON: None. TECHNIQUE: AP and Lateral Radiographs of the right femur. FINDINGS: FEMUR: Normal. No fracture. SOFT TISSUES: Normal. OTHER FINDINGS: None. IMPRESSION: Unremarkable radiographs of the right femur.
--- NOTE | 2017-09-22 18:06 | CP.PCM.PN ---
<Kee Melissa - Last Filed: 09/22/17 20:15> Subjective - Date & Time of Evaluation Date of Evaluation: 09/22/17 Time of Evaluation: 17:54 - Subjective Subjective: Kee Melissa DO - PGY 1 Internal Medicine Contracts Attorney - Medicine Progress Note 61 Year old male w/ a PMH significant for diabetes, and 50 pack year tobacco use who presents with complaints of R sided abdominal and chest pain, and RLE Pain found to have hypercalcemia, PAD, and obstructive airway disease. Pt seen and examined this AM; no acute events overnight. Pt. still having c/o RLE pain along medial aspect of thigh; states he is ambulating well. Pt. eager to go home. Objective - Vital Signs/Intake and Output Vital Signs (last 24 hours): Temp Pulse Resp BP Pulse Ox 98 F 87 21 133/78 99 09/22/17 17:23 09/22/17 17:23 09/22/17 17:23 09/22/17 17:23 09/22/17 07:40 Intake and Output: 09/22/17 09/22/17 06:59 18:59 Intake Total 840 Output Total 5 Balance 835 - Medications Medications: Current Medications Acetaminophen (Tylenol 325mg Tab) 650 mg PO Q6H PRN PRN Reason: Pain, moderate (4-7) Albuterol/Ipratropium (Duoneb 3 Mg/0.5 Mg (3 Ml) Ud) 3 ml IH [id number] [facility] Last Admin: 09/22/17 13:44 Dose: 3 ml Arformoterol Tartrate (Brovana) 15 mcg IH [id number] [facility] Last Admin: 09/22/17 08:03 Dose: 15 mcg Aspirin (Aspirin Chewable) 81 mg PO DAILY [facility] Last Admin: 09/22/17 09:27 Dose: 81 mg Atorvastatin Calcium (Lipitor) 40 mg PO DIN [facility] Last Admin: 09/22/17 17:39 Dose: 40 mg Azithromycin (Zithromax) 500 mg PO DAILY [facility] PRN Reason: Protocol Stop: 09/25/17 10:01 Last Admin: 09/22/17 09:27 Dose: 500 mg Budesonide (Pulmicort Respules) 0.5 mg IH [id number] [facility] Last Admin: 09/22/17 08:03 Dose: 0.5 mg Enoxaparin Sodium (Lovenox) 40 mg SC DAILY [facility] PRN Reason: Protocol Last Admin: 09/22/17 09:27 Dose: 40 mg Famotidine (Pepcid) 20 mg PO 1000,2200 [facility] Last Admin: 09/22/17 09:26 Dose: 20 mg Gabapentin (Neurontin) 600 mg PO TID [facility] PRN Reason: Protocol Last Admin: 09/22/17 17:39 Dose: 600 mg Glipizide (Glucotrol) 5 mg PO ACB [facility] Last Admin: 09/22/17 09:27 Dose: 5 mg Ceftriaxone Sodium (Rocephin 1 Gram Ivpb) 1 gm in 100 mls @ 100 mls/hr IVPB DAILY [facility] PRN Reason: Protocol Stop: 09/25/17 10:01 Last Admin: 09/22/17 09:28 Dose: 100 mls/hr Insulin Human Regular (Humulin R Med) 0 units SC ACHS [facility] PRN Reason: Protocol Last Admin: 09/22/17 17:39 Dose: 1 units Nicotine (Nicoderm Cq) 1 patch TD DAILY [facility] Last Admin: 09/22/17 09:27 Dose: 1 patch Potassium Phos/Sodium Phos (Neutra-Phos) 1 pkt PO TID [facility] Last Admin: 09/22/17 17:39 Dose: 1 pkt - Labs Labs: 09/22/17 08:15 09/22/17 08:15 PT 16.0 SECONDS (9.4-12.5) H 09/20/17 14:30 INR 1.39 (0.93-1.08) H 09/20/17 14:30 APTT 40.3 Seconds (25.1-36.5) H 09/20/17 14:30 - Constitutional Appears: Well, Non-toxic, No Acute Distress - Head Exam Head Exam: ATRAUMATIC, NORMOCEPHALIC - Eye Exam Eye Exam: EOMI. absent: Scleral icterus - ENT Exam ENT Exam: Mucous Membranes Moist - Respiratory Exam Respiratory Exam: Chest Wall Tenderness (R>L), NORMAL BREATHING PATTERN. absent : Rales Additional comments: Pain with deep inspiration; RLB ronchi/ crackles present - Cardiovascular Exam Cardiovascular Exam: RRR, +S1, +S2. absent: Murmur - GI/Abdominal Exam GI & Abdominal Exam: Soft, Normal Bowel Sounds. absent: Tenderness - Extremities Exam Additional comments: BL LE warm w/ 2+ DP/TP pulses on both sides; R thigh pain along medial aspect of thigh; - Back Exam Back Exam: absent: CVA tenderness (L), CVA tenderness (R), vertebral tenderness - Neurological Exam Neurological Exam: Alert, Awake, Oriented x3 Assessment and Plan - Assessment and Plan (Free Text) Assessment: 61 Year old male w/ a PMH significant for diabetes, and 50 pack year tobacco use who presents with complaints of R sided abdominal and chest pain, and RLE Pain found to have hypercalcemia, PAD, and obstructive airway disease. Plan: 1. Chest Pain /Dyspnea Most likely 2/2 obstructive airway disease TROPS negative x2; EKG x2 w/o acute infarct CTAP: No PE; Centrilobular Emphysematous changes; Consolidation within azygous lobe posteriorly; Dependent groundglass density infiltrates and atelectatic changes B; scattered mediastinal lymph node enlargement Blood Cx 2/2 negative x2 in 48H Urine Cx negative in 48H Sputum Stain - Many PMN WBC, few epithelial, Moderate Yeast, Moderate G+ Cocci in Clusters HIV negative WALKER pending Pulmonology consulted appreciate reccs Echo report to evaluate pulmonary hypertension pending ID consulted appreciate reccs Procal negative RPR negative Legionella Ag negative Cont Azithromycin 500 QD Cont Ceftriaxone 1gm QD 2. Peripheral Vascular Disease: CTAP findings as below: Mural thrombus and dissection flap are visualized within the left common iliac artery. In retrospect, this appears to be chronic. Atherosclerosis and mural thrombus are identified the involving the iliac arteries bilaterally. There is approximately 50% stenosis of the right common and external iliac arteries. Stenoses are visualized of the left external and bilateral internal iliac arteries. There is mild narrowing or stenosis of the proximal celiac artery. There is approximately 50% stenosis of the proximal right renal artery. There is a proximally 70% stenosis of the bilateral superficial femoral arteries proximally. Additional stenoses are identified of the bilateral proximal common femoral and deep femoral arteries. KATE: 0.79R 0.75L ASCVD: 27.8% IR reccs no further vascular workup or intervention required at this time; pursue aggressive risk factor modification Continue ASA 81, Lipitor 40, 3. Abd Pain Some RUQ complaints at time of admission; multiple enhancing hepatic foci on CTAP; concerns of malignancy vs hemangiomas Abd US: No defintive hepatic lesions identified or intrahepatic biliary duct dilatation LFTs wnl Amylase/ Lipase wnl GI Consulted Reccs pending MRI abdomen w/wo contrast 4. Hypercalcemia Elevated on admission as well as during hospital course. NS@100ml/hr PTH, PTHrP pending 25,OH VitD wnl 5. Hypophosphatemia Work up as above Neutraphos TID 6. DM2 w/ Neuropathy A1C 7.4 Cont ISS LOW Cont Glipizide 5 ACB Cont gabapentin 600 TID 7. Tobacco Cessation Nicotine 21mg Patch DVT/GI Prophylaxis: Lovenox + Pepcid DISPO: Continue isolation precautions until negative x1 AFB returns; Continue workup of hepatic foci and hypercalcemia. Patient is to follow up w/ PMD Dr. Mcduffie post discharge. Case discussed w/ attending Dr. Vicenta Melissa DO - PGY1 IM RESIDENT - PAGER [phone] <Slade Yadav - Last Filed: 09/23/17 08:38> Objective - Vital Signs/Intake and Output Vital Signs (last 24 hours): Temp Pulse Resp BP Pulse Ox 97.9 F 63 20 131/75 99 09/23/17 06:00 09/23/17 06:00 09/23/17 06:00 09/23/17 06:00 09/23/17 06:00 Intake and Output: 09/23/17 09/23/17 06:59 18:59 Intake Total 1900 Balance 1900 - Medications Medications: Current Medications Acetaminophen (Tylenol 325mg Tab) 650 mg PO Q6H PRN PRN Reason: Pain, moderate (4-7) Albuterol/Ipratropium (Duoneb 3 Mg/0.5 Mg (3 Ml) Ud) 3 ml IH [id number] [facility] Last Admin: 09/23/17 07:14 Dose: 3 ml Arformoterol Tartrate (Brovana) 15 mcg IH [id number] [facility] Last Admin: 09/23/17 07:14 Dose: 15 mcg Aspirin (Aspirin Chewable) 81 mg PO DAILY [facility] Last Admin: 09/22/17 09:27 Dose: 81 mg Atorvastatin Calcium (Lipitor) 40 mg PO DIN [facility] Last Admin: 09/22/17 17:39 Dose: 40 mg Azithromycin (Zithromax) 500 mg PO DAILY [facility] PRN Reason: Protocol Stop: 09/25/17 10:01 Last Admin: 09/22/17 09:27 Dose: 500 mg Budesonide (Pulmicort Respules) 0.5 mg IH [id number] [facility] Last Admin: 09/23/17 07:14 Dose: 0.5 mg Enoxaparin Sodium (Lovenox) 40 mg SC DAILY [facility] PRN Reason: Protocol Last Admin: 09/22/17 09:27 Dose: 40 mg Famotidine (Pepcid) 20 mg PO 1000,2200 [facility] Last Admin: 09/22/17 21:10 Dose: 20 mg Gabapentin (Neurontin) 600 mg PO TID [facility] PRN Reason: Protocol Last Admin: 09/22/17 17:39 Dose: 600 mg Glipizide (Glucotrol) 5 mg PO ACB [facility] Last Admin: 09/23/17 08:11 Dose: 5 mg Ceftriaxone Sodium (Rocephin 1 Gram Ivpb) 1 gm in 100 mls @ 100 mls/hr IVPB DAILY [facility] PRN Reason: Protocol Stop: 09/25/17 10:01 Last Admin: 09/22/17 09:28 Dose: 100 mls/hr Sodium Chloride (Sodium Chloride 0.9%) 1,000 mls @ 100 mls/hr IV .Q10H [facility] Last Admin: 09/23/17 05:00 Dose: 100 mls/hr Insulin Human Regular (Humulin R Med) 0 units SC ACHS [facility] PRN Reason: Protocol Last Admin: 09/23/17 08:22 Dose: Not Given Nicotine (Nicoderm Cq) 1 patch TD DAILY [facility] Last Admin: 09/22/17 09:27 Dose: 1 patch Potassium Phos/Sodium Phos (Neutra-Phos) 1 pkt PO TID [facility] Last Admin: 09/22/17 17:39 Dose: 1 pkt - Labs Labs: 09/23/17 07:00 09/23/17 07:00 PT 16.0 SECONDS (9.4-12.5) H 09/20/17 14:30 INR 1.39 (0.93-1.08) H 09/20/17 14:30 APTT 40.3 Seconds (25.1-36.5) H 09/20/17 14:30 Attending/Attestation - Attestation I have personally seen and examined this patient.: Yes I have fully participated in the care of the patient.: Yes I have reviewed all pertinent clinical information, including history, physical exam and plan: Yes Notes (Text): 09/22/17 61 year old male with past medical history of diabetes and tobacco use who presented with complaint of right sided abdominal and chest pain. CT chest/abd/ pelvis was negative for PE; showed emphysematous changes, atelecactic and grounglass infiltrates, nonspecific mediastinal lymph nodes, mural thrombus involving left common iliac artery, 50% stenosis of proximal right renal artery , 70% stenosis of bilateral superficial femoral arteries and hemangiomas of liver. Serial cardiac enzymes were negative and ACS has been ruled out. Pulmonary evaluation was appreciated for CT findings and COPD. IR and vascular input was appreciated as well; recommended outpatient follow up. He is on antibiotics as per ID. Dopplers and US were reviewed. Will follow up on GI recommendations. He was counselled on smoking cessation. He is on fluids for hypercalcemia. PTH is pending. Slade Yadav MD Hospitalist.
[2017-09-22] MEDS: Sodium Chloride 0.9% 1,000 ML IV SCH (18:25)
[2017-09-23] MEDS: Albuterol-Ipratrop 3 mg / 0.5 (3 ml) UD IH SCH ×4 (02:13→20:59)
[2017-09-23] MEDS: Sodium Chloride 0.9% 1,000 ML IV SCH (05:00)
[2017-09-23] MEDS: Budesonide 0.5 mg/2 ml Inhal Susp UD IH SCH ×2 (07:14→20:59)
[2017-09-23] MEDS: Arformoterol 15 mcg/2 ml Inh Sol IH SCH ×2 (07:14→20:59)
[2017-09-23 08:00] LABS: BASO # 0.02 K/mm3 (0.0-2.0); BASO % 0.3 % (0.0-3.0); EOS # 0.1 (0.0-0.7); EOS % 1.8 % (1.5-5.0); GRAN # 5.1 (1.4-6.5); GRAN % 77.4 % (50.0-68.0); HEMOGLOBIN 14.1 g/dL (14.0-18.0); LYMPH % 15.2 % (22.0-35.0); MEAN CELL VOLUME 81.1 fl (80.0-105.0); MEAN CORPUSCULAR HEMOGLOBIN 26.7 pg (25.0-35.0); MEAN CORPUSCULAR HGB CONC 32.9 g/dl (31.0-37.0); MEAN PLATELET VOLUME 10.7 fl (7.0-11.0); MONO # 0.4 (0.1-0.6); MONO % 5.3 % (1.0-6.0); RBC 5.28 10^6/uL (3.5-6.1); RED CELL DISTRIBUTION WIDTH 13.6 % (11.5-14.5); WHITE BLOOD COUNT 6.6 10^3/ul (4.5-11.0)
[2017-09-23] MEDS: Insulin Reg-MEDIUM-Coverage SC SCH ×2 (08:11→08:22)
[2017-09-23 08:32] LABS: ALB/GLOB RATIO 1.2 (1.1-1.8); ALT/SGPT 25 U/L (7-56); AST/SGOT 19 U/L (17-59); BLOOD UREA NITROGEN 13 mg/dL (7-21); GFR AFRICAN-AMERICAN > 60; GFR NON-AFRICAN AMERICAN > 60
--- NOTE | 2017-09-23 08:50 | CARD ---
APPROVED REPORT EXAM: Two-dimensional and M-mode echocardiogram with Doppler and color Doppler. Other Information Quality : AverageRhythm : INDICATION EVALUATE FOR PULM HTN 2D DIMENSIONS Left Atrium (2D)4.0 (1.6-4.0cm)IVSd1.2 (0.7-1.1cm) LVDd4.2 (3.9-5.9cm)PWd1.2 (0.7-1.1cm) LVDs3.2 (2.5-4.0cm)FS (%) 25.5 % LVEF (%)50.0 (>50%) M-Mode DIMENSIONS Aortic Root3.60 (2.2-3.7cm)Aortic Cusp Exc.1.90 (1.5-2.0cm) Aortic Valve AoV Peak Karvshnh862.0cm/s Mitral Valve MV E Rwnujron98.7cm/sMV A Skunfrvx71.5cm/sE/A ratio0.8 TDI Lateral E' Peak V11.50cm/sMedial E' Peak V8.58cm/sE/Lateral E'7.2 E/Medial E'9.6 Pulmonary Valve PV Peak Holpjjby11.5cm/sPV Peak Grad.2mmHg Tricuspid Valve TR Peak Bpvgctql363nx/sRAP YCWVWATF70nsWuSP Peak Gr.26mmHg [id number] LEFT VENTRICLE The left ventricle is normal size. There is normal left ventricular wall thickness. The left ventricular function is normal. The left ventricular ejection fraction is within the normal range. There is normal LV segmental wall motion. RIGHT VENTRICLE The right ventricle is normal size. ATRIA The left atrium size is normal. The right atrium size is normal. The interatrial septum is intact with no evidence for an atrial septal defect. AORTIC VALVE The aortic valve is normal in structure. MITRAL VALVE The mitral valve is normal in structure. Mitral regurgitation is trace. TRICUSPID VALVE The tricuspid valve is normal in structure. There is trace tricuspid regurgitation. PULMONIC VALVE The pulmonic valve is not well visualized. GREAT VESSELS The aortic root is normal in size. PERICARDIAL EFFUSION There is no pericardial effusion. <Conclusion> The left ventricle is normal size. There is normal left ventricular wall thickness. The left ventricular function is normal.
[2017-09-23] MEDS ORDERED: Gadodiamide 287 MG/ML VIAL (15ML) IV ONE (11:07)
[2017-09-23] MEDS: Enoxaparin 40 mg Syringe SC SCH (11:30)
[2017-09-23] MEDS: Potassium & Sodium Phosphate PO SCH ×3 (11:32→17:24)
--- NOTE | 2017-09-23 15:43 | CP.PCM.PN ---
<Doc Brower - Last Filed: 09/23/17 15:43> Subjective - Date & Time of Evaluation Date of Evaluation: 09/23/17 Time of Evaluation: 06:35 - Subjective Subjective: Patient seen and examined at bedside in no acute distress. States he still has some pain in his back when he coughs but has improved since admission. Denies chest pain, shortness of breath, headache, nausea, vomiting, diarrhea, fevers, chills, abdominal pain. Objective - Vital Signs/Intake and Output Vital Signs (last 24 hours): Temp Pulse Resp BP Pulse Ox 97.9 F 63 20 131/75 99 09/23/17 06:00 09/23/17 06:00 09/23/17 06:00 09/23/17 06:00 09/23/17 06:00 Intake and Output: 09/23/17 09/23/17 06:59 18:59 Intake Total 1900 Balance 1900 - Medications Medications: Current Medications Acetaminophen (Tylenol 325mg Tab) 650 mg PO Q6H PRN PRN Reason: Pain, moderate (4-7) Albuterol/Ipratropium (Duoneb 3 Mg/0.5 Mg (3 Ml) Ud) 3 ml IH [id number] [facility] Last Admin: 09/23/17 14:08 Dose: 3 ml Arformoterol Tartrate (Brovana) 15 mcg IH [id number] [facility] Last Admin: 09/23/17 07:14 Dose: 15 mcg Aspirin (Aspirin Chewable) 81 mg PO DAILY [facility] Last Admin: 09/23/17 11:32 Dose: 81 mg Atorvastatin Calcium (Lipitor) 40 mg PO DIN [facility] Last Admin: 09/22/17 17:39 Dose: 40 mg Azithromycin (Zithromax) 500 mg PO DAILY [facility] PRN Reason: Protocol Stop: 09/25/17 10:01 Last Admin: 09/23/17 11:31 Dose: 500 mg Budesonide (Pulmicort Respules) 0.5 mg IH [id number] [facility] Last Admin: 09/23/17 07:14 Dose: 0.5 mg Enoxaparin Sodium (Lovenox) 40 mg SC DAILY [facility] PRN Reason: Protocol Last Admin: 09/23/17 11:30 Dose: 40 mg Famotidine (Pepcid) 20 mg PO 1000,2200 [facility] Last Admin: 09/23/17 11:31 Dose: 20 mg Gabapentin (Neurontin) 600 mg PO TID [facility] PRN Reason: Protocol Last Admin: 09/23/17 14:31 Dose: 600 mg Glipizide (Glucotrol) 5 mg PO ACB [facility] Last Admin: 09/23/17 14:30 Dose: 5 mg Glipizide (Glucotrol) 10 mg PO ACB [facility] Sodium Chloride (Sodium Chloride 0.9%) 1,000 mls @ 100 mls/hr IV .Q10H [facility] Last Admin: 09/23/17 05:00 Dose: 100 mls/hr Nicotine (Nicoderm Cq) 1 patch TD DAILY [facility] Last Admin: 09/23/17 11:30 Dose: 1 patch Potassium Phos/Sodium Phos (Neutra-Phos) 1 pkt PO TID [facility] Last Admin: 09/23/17 14:30 Dose: 1 pkt - Labs Labs: 09/23/17 07:00 09/23/17 07:00 PT 16.0 SECONDS (9.4-12.5) H 09/20/17 14:30 INR 1.39 (0.93-1.08) H 09/20/17 14:30 APTT 40.3 Seconds (25.1-36.5) H 09/20/17 14:30 - Head Exam Head Exam: ATRAUMATIC, NORMAL INSPECTION, NORMOCEPHALIC - Eye Exam Eye Exam: EOMI, Normal appearance - ENT Exam ENT Exam: Mucous Membranes Moist, Normal Exam - Neck Exam Neck Exam: Normal Inspection - Respiratory Exam Respiratory Exam: Clear to Ausculation Bilateral, NORMAL BREATHING PATTERN. absent: Rhonchi, Wheezes - Cardiovascular Exam Cardiovascular Exam: REGULAR RHYTHM, +S1, +S2 - GI/Abdominal Exam GI & Abdominal Exam: Soft, Normal Bowel Sounds - Extremities Exam Extremities Exam: Normal Inspection - Back Exam Back Exam: NORMAL INSPECTION - Neurological Exam Neurological Exam: Alert, Awake, Oriented x3 - Psychiatric Exam Psychiatric exam: Normal Affect, Normal Mood - Skin Skin Exam: Normal Color, Warm Assessment and Plan - Assessment and Plan (Free Text) Assessment: 61 Year old male w/ a PMH significant for diabetes, and 50 pack year tobacco use who presents with complaints of R sided abdominal and chest pain, and RLE Pain found to have hypercalcemia, PAD, and obstructive airway disease. Plan: 1. Chest Pain /Dyspnea Most likely 2/2 obstructive airway disease TROPS negative x2; EKG x2 w/o acute infarct CTAP: No PE; Centrilobular Emphysematous changes; Consolidation within azygous lobe posteriorly; Dependent groundglass density infiltrates and atelectatic changes B; scattered mediastinal lymph node enlargement Blood Cx 2/2 negative x2 Urine Cx negative Sputum Stain - Many PMN WBC, few epithelial, Moderate Yeast, Moderate G+ Cocci in Clusters AFB negative for bacilli; precautions discontinued HIV negative Pulmonology consulted appreciate recs Echo report to evaluate pulmonary hypertension reveals no abnormalities ID consulted appreciate recs Procal negative RPR negative Legionella Ag negative Cont Azithromycin 500 QD Cont Ceftriaxone 1gm QD 2. Peripheral Vascular Disease: CTAP findings as below: Mural thrombus and dissection flap are visualized within the left common iliac artery. In retrospect, this appears to be chronic. Atherosclerosis and mural thrombus are identified the involving the iliac arteries bilaterally. There is approximately 50% stenosis of the right common and external iliac arteries. Stenoses are visualized of the left external and bilateral internal iliac arteries. There is mild narrowing or stenosis of the proximal celiac artery. There is approximately 50% stenosis of the proximal right renal artery. There is a proximally 70% stenosis of the bilateral superficial femoral arteries proximally. Additional stenoses are identified of the bilateral proximal common femoral and deep femoral arteries. KATE: 0.79R 0.75L ASCVD: 27.8% IR reccs no further vascular workup or intervention required at this time; pursue aggressive risk factor modification Continue ASA 81, Lipitor 40, 3. Abd Pain Some RUQ complaints at time of admission; multiple enhancing hepatic foci on CTAP; concerns of malignancy vs hemangiomas Abd US: No defintive hepatic lesions identified or intrahepatic biliary duct dilatation LFTs wnl Amylase/ Lipase wnl GI Consulted; pending read for MRI abdomen w/wo contrast 4. Hypercalcemia Elevated on admission as well as during hospital course. NS@125ml/hr PTH, PTHrP pending 25,OH VitD wnl 5. DM2 w/ Neuropathy A1C 7.4 Discont insulin sliding scale due to patient refusing Cont Glipizide 10 ACB Cont gabapentin 600 TID 6. Tobacco Cessation Nicotine 21mg Patch DVT/GI Prophylaxis: Lovenox + Pepcid DISPO: Continue isolation precautions until negative x1 AFB returns; Continue workup of hepatic foci and hypercalcemia. Patient is to follow up w/ PMD Dr. Mcduffie post discharge. Case discussed w/ attending Dr. Yadav <Slade Yadav - Last Filed: 09/23/17 17:10> Objective - Vital Signs/Intake and Output Vital Signs (last 24 hours): Temp Pulse Resp BP Pulse Ox 97.8 F 77 18 138/73 100 09/23/17 16:13 09/23/17 16:13 09/23/17 16:13 09/23/17 16:13 09/23/17 16:13 Intake and Output: 09/23/17 09/23/17 06:59 18:59 Intake Total 1900 Balance 1900 - Medications Medications: Current Medications Albuterol/Ipratropium (Duoneb 3 Mg/0.5 Mg (3 Ml) Ud) 3 ml IH [id number] [facility] Last Admin: 09/23/17 14:08 Dose: 3 ml Arformoterol Tartrate (Brovana) 15 mcg IH [id number] [facility] Last Admin: 09/23/17 07:14 Dose: 15 mcg Aspirin (Aspirin Chewable) 81 mg PO DAILY [facility] Last Admin: 09/23/17 11:32 Dose: 81 mg Atorvastatin Calcium (Lipitor) 40 mg PO DIN [facility] Last Admin: 09/22/17 17:39 Dose: 40 mg Azithromycin (Zithromax) 500 mg PO DAILY [facility] PRN Reason: Protocol Stop: 09/25/17 10:01 Last Admin: 09/23/17 11:31 Dose: 500 mg Budesonide (Pulmicort Respules) 0.5 mg IH [id number] [facility] Last Admin: 09/23/17 07:14 Dose: 0.5 mg Enoxaparin Sodium (Lovenox) 40 mg SC DAILY [facility] PRN Reason: Protocol Last Admin: 09/23/17 11:30 Dose: 40 mg Famotidine (Pepcid) 20 mg PO 1000,2200 [facility] Last Admin: 09/23/17 11:31 Dose: 20 mg Gabapentin (Neurontin) 600 mg PO TID [facility] PRN Reason: Protocol Last Admin: 09/23/17 14:31 Dose: 600 mg Glipizide (Glucotrol) 10 mg PO ACB [facility] Sodium Chloride (Sodium Chloride 0.9%) 1,000 mls @ 125 mls/hr IV .Q8H [facility] Ibuprofen (Motrin Tab) 600 mg PO Q6H PRN PRN Reason: Pain, moderate (4-7) Nicotine (Nicoderm Cq) 1 patch TD DAILY [facility] Last Admin: 09/23/17 11:30 Dose: 1 patch Potassium Phos/Sodium Phos (Neutra-Phos) 1 pkt PO TID [facility] Last Admin: 09/23/17 14:30 Dose: 1 pkt - Labs Labs: 09/23/17 07:00 09/23/17 07:00 PT 16.0 SECONDS (9.4-12.5) H 09/20/17 14:30 INR 1.39 (0.93-1.08) H 09/20/17 14:30 APTT 40.3 Seconds (25.1-36.5) H 09/20/17 14:30 Attending/Attestation - Attestation I have personally seen and examined this patient.: Yes I have fully participated in the care of the patient.: Yes I have reviewed all pertinent clinical information, including history, physical exam and plan: Yes Notes (Text): 09/23/17 17:09 61 year old male with past medical history of diabetes and tobacco use who presented with complaint of right sided abdominal and chest pain. CT chest/abd/ pelvis was negative for PE; showed emphysematous changes, atelectic and grounglass infiltrates, nonspecific mediastinal lymph nodes, mural thrombus involving left common iliac artery, 50% stenosis of proximal right renal artery , 70% stenosis of bilateral superficial femoral arteries and hemangiomas of liver. Serial cardiac enzymes were negative and ACS has been ruled out. Pulmonary evaluation was appreciated for CT findings and COPD. IR and vascular input was appreciated as well; recommended outpatient follow up. He is on antibiotics as per ID. Dopplers and US were reviewed. He had MRI abd/pelvis today; will follow up results and GI recommendations. He was counselled on smoking cessation. He is on fluids for hypercalcemia. PTH is pending. Slade Yadav MD Hospitalist.
[2017-09-23] MEDS ORDERED: Sodium Chloride 0.9% 1,000 ML IV SCH (15:53)
[2017-09-23 16:14] VITALS: RESP 18
[2017-09-23 21:35] LABS: TB ANTIGEN MINUS NIL 0.15 IU/mL
[2017-09-23 21:52] VITALS: TEMP 98.2
[2017-09-24] MEDS: Albuterol-Ipratrop 3 mg / 0.5 (3 ml) UD IH SCH ×3 (02:36→13:20)
[2017-09-24] MEDS: Budesonide 0.5 mg/2 ml Inhal Susp UD IH SCH (07:19)
[2017-09-24] MEDS: Arformoterol 15 mcg/2 ml Inh Sol IH SCH (07:19)
[2017-09-24 07:58] LABS: BASO # 0.02 K/mm3 (0.0-2.0); BASO % 0.3 % (0.0-3.0); EOS # 0.1 (0.0-0.7); GRAN # 4.48 (1.4-6.5); GRAN % 68.3 % (50.0-68.0); HEMOGLOBIN 13.8 g/dL (14.0-18.0); LYMPH # 1.5 (1.2-3.4); LYMPH % 23.4 % (22.0-35.0); MEAN CORPUSCULAR HEMOGLOBIN 26.5 pg (25.0-35.0); MEAN CORPUSCULAR HGB CONC 32.8 g/dl (31.0-37.0); MEAN PLATELET VOLUME 11.1 fl (7.0-11.0); MONO # 0.4 (0.1-0.6); RBC 5.2 10^6/uL (3.5-6.1); RED CELL DISTRIBUTION WIDTH 13.5 % (11.5-14.5); WHITE BLOOD COUNT 6.6 10^3/ul (4.5-11.0)
[2017-09-24 08:21] LABS: ALB/GLOB RATIO 1.2 (1.1-1.8); ALT/SGPT 30 U/L (7-56); AST/SGOT 21 U/L (17-59); BLOOD UREA NITROGEN 25 mg/dL (7-21); CALCIUM 10.7 mg/dL (8.4-10.5); GFR AFRICAN-AMERICAN > 60; GFR NON-AFRICAN AMERICAN > 60
[2017-09-24 09:16] VITALS: BP 137/75; PULSE 69; O2SAT 100
[2017-09-24] MEDS ORDERED: Cilostazol 100 mg Tab UD PO SCH (10:00)
--- NOTE | 2017-09-24 10:24 | MRI ---
PROCEDURE: MRI Abdomen with and without contrast HISTORY: Questionable level lesions on prior CT. COMPARISON: Comparison is made to the previous CT of the abdomen and pelvis dated 10/31/2016 prior CTA of the abdomen and pelvis dated 09/19/2017. TECHNIQUE: Multisequence, multiplanar MR images of the abdomen with and without gadolinium contrast enhancement. FINDINGS: LIVER: Mild heterogeneous enhancement of the liver noted. No evidence of discrete mass lesion. GALLBLADDER: No MRI evidence of cholelithiasis or cholecystitis. SPLEEN: Unremarkable. PANCREAS: No evidence of pancreatic mass or dilated main pancreatic duct. ADRENALS: Unremarkable. KIDNEYS: Unremarkable. AORTA: No aneurysm. ASCITES: None. PERITONEUM: Unremarkable. LYMPH NODES: Unremarkable. OTHER FINDINGS: None. IMPRESSION: No evidence of enhancing mass lesion in the liver. Mild heterogeneous enhancement of the liver. No evidence of acute pathology or suspicious mass in the upper abdomen solid organs. No evidence of cholelithiasis or cholecystitis. Preliminary report was submitted by virtual Radiology.
[2017-09-24] MEDS: Enoxaparin 40 mg Syringe SC SCH (10:38)
[2017-09-24] MEDS: Potassium & Sodium Phosphate PO SCH (10:38)
--- NOTE | 2017-09-24 13:21 | CP.PCM.DIS ---
<Doc Brower - Last Filed: 09/24/17 16:24> Provider - Provider Date of Admission: 09/19/17 22:15 Attending physician: Slade Yadav MD Primary care physician: Julio Cesar Bhakta MD Consults: Pulmonlogy: Dr. Miller Vascular: Dr. Garza Gastroenterology: Dr. Salomon Infectious disease: Dr. Cruz Interventional Radiology: Dr. Ralph Time Spent in preparation of Discharge (in minutes): 40 Diagnosis - Discharge Diagnosis (1) COPD (chronic obstructive pulmonary disease) Status: Acute Priority: High (2) Diabetes mellitus Status: Acute Priority: High (3) Iliac artery thrombosis, bilateral Status: Chronic Priority: High (4) Liver hemangioma Status: Chronic Priority: Medium (5) Hypercalcemia Status: Acute Priority: High Hospital Course - Lab Results Lab Results: Micro Results 09/21/17 23:05 Sputum Gram Stain - Final 09/21/17 23:05 Sputum Sputum Culture - Final NORMAL ORAL BALDEMAR 09/21/17 23:05 Other: Please Indicate Mycobacterial Culture - Preliminary Most Recent Lab Values WBC 6.6 10^3/ul (4.5-11.0) 09/24/17 07:00 RBC 5.20 10^6/uL (3.5-6.1) 09/24/17 07:00 Hgb 13.8 g/dL (14.0-18.0) L 09/24/17 07:00 Hct 42.1 % (42.0-52.0) 09/24/17 07:00 MCV 81.0 fl (80.0-105.0) 09/24/17 07:00 MCH 26.5 pg (25.0-35.0) 09/24/17 07:00 MCHC 32.8 g/dl (31.0-37.0) 09/24/17 07:00 RDW 13.5 % (11.5-14.5) 09/24/17 07:00 Plt Count 237 10^3/uL (120.0-450.0) 09/24/17 07:00 MPV 11.1 fl (7.0-11.0) H 09/24/17 07:00 Gran % 68.3 % (50.0-68.0) H 09/24/17 07:00 Lymph % (Auto) 23.4 % (22.0-35.0) 09/24/17 07:00 [place] % (Auto) 6.0 % (1.0-6.0) 09/24/17 07:00 Eos % (Auto) 2.0 % (1.5-5.0) 09/24/17 07:00 Baso % (Auto) 0.3 % (0.0-3.0) 09/24/17 07:00 Gran # 4.48 (1.4-6.5) 09/24/17 07:00 Lymph # (Auto) 1.5 (1.2-3.4) 09/24/17 07:00 [place] # (Auto) 0.4 (0.1-0.6) 09/24/17 07:00 Eos # (Auto) 0.1 (0.0-0.7) 09/24/17 07:00 Baso # (Auto) 0.02 K/mm3 (0.0-2.0) 09/24/17 07:00 PT 16.0 SECONDS (9.4-12.5) H 09/20/17 14:30 INR 1.39 (0.93-1.08) H 09/20/17 14:30 APTT 40.3 Seconds (25.1-36.5) H 09/20/17 14:30 pCO2 35 mm/Hg (35-45) 09/20/17 03:15 pO2 66.0 mm/Hg (80-100) L 09/20/17 03:15 HCO3 21.2 mmol/L (21-28) 09/20/17 03:15 ABG pH 7.39 (7.35-7.45) 09/20/17 03:15 ABG Total CO2 22.3 mmol.L (22-28) 09/20/17 03:15 ABG O2 Saturation 96.4 % (95-98) 09/20/17 03:15 ABG O2 Content 16.7 ML/dl (15-23) 09/20/17 03:15 ABG Base Excess -3.2 mmol/L (-2.0-3.0) L 09/20/17 03:15 ABG Hemoglobin 12.7 g/dL (11.7-17.4) 09/20/17 03:15 ABG Carboxyhemoglobin 2.7 % (0.5-1.5) H 09/20/17 03:15 POC ABG HHb (Measured) 3.5 % (0-5) 09/20/17 03:15 ABG Methemoglobin 0.3 % (0.0-3.0) 09/20/17 03:15 ABG O2 Capacity 17.3 mL/dl (16-24) 09/20/17 03:15 VBG pH 7.36 (7.32-7.43) 09/19/17 22:57 VBG pCO2 41.0 (40-60) 09/19/17 22:57 VBG HCO3 23.2 mmol/l (21-28) 09/19/17 22:57 VBG Total CO2 24.5 mmol.L (22-28) 09/19/17 22:57 VBG O2 Sat (Calc) 92.1 % (40-65) H 09/19/17 22:57 VBG Base Excess -2.2 mmol/L (0.0-2.0) L 09/19/17 22:57 VBG Potassium 4.4 mmol/L (3.6-5.2) 09/19/17 22:57 Hgb O2 Saturation 93.5 % (95.0-98.0) L 09/20/17 03:15 Sodium 136.0 mmol/L (132-148) 09/19/17 22:57 Chloride 106.0 mmol/L (98-107) 09/19/17 22:57 Glucose 110 mg/dl (75-110) 09/19/17 22:57 Lactate 0.7 mmol/L (0.7-2.1) 09/19/17 22:57 FiO2 21.0 % 09/20/17 03:15 Sodium 141 mmol/L (132-148) 09/24/17 07:00 Potassium 5.1 mmol/L (3.6-5.0) H 09/24/17 07:00 Chloride 105 mmol/L (98-107) 09/24/17 07:00 Carbon Dioxide 26 mmol/L (21-33) 09/24/17 07:00 Anion Gap 15 (10-20) 09/24/17 07:00 BUN 25 mg/dL (7-21) H 09/24/17 07:00 Creatinine 0.8 mg/dl (0.8-1.5) 09/24/17 07:00 Est GFR ( Amer) > 60 09/24/17 07:00 Est GFR (Non-Af Amer) > 60 09/24/17 07:00 POC Glucose (mg/dL) 245 mg/dL (65-110) H 09/24/17 11:16 Random Glucose 300 mg/dL (70-110) H 09/24/17 07:00 Hemoglobin A1c 7.4 % (4.2-6.5) H 09/20/17 07:24 Calcium 10.7 mg/dL (8.4-10.5) H 09/24/17 07:00 Phosphorus 2.5 mg/dL (2.5-4.5) 09/24/17 07:00 Magnesium 2.1 mg/dL (1.7-2.2) 09/24/17 07:00 Total Bilirubin 0.2 mg/dL (0.2-1.3) 09/24/17 07:00 AST 21 U/L (17-59) 09/24/17 07:00 ALT 30 U/L (7-56) 09/24/17 07:00 Alkaline Phosphatase 64 U/L (38-126) 09/24/17 07:00 Lactate Dehydrogenase 280 U/L (333-699) L 09/20/17 14:30 Total Creatine Kinase 93 U/L (35-230) 09/20/17 14:30 Troponin I < 0.01 ng/mL 09/20/17 14:30 C-Reactive Protein 40.80 mg/L (0.0-9.9) H 09/20/17 06:00 Total Protein 7.2 g/dL (5.8-8.3) 09/24/17 07:00 Albumin 4.0 g/dL (3.0-4.8) 09/24/17 07:00 Globulin 3.2 gm/dL 09/24/17 07:00 Albumin/Globulin Ratio 1.2 (1.1-1.8) 09/24/17 07:00 Triglycerides 108 mg/dL (35-160) 09/20/17 06:00 Cholesterol 119 mg/dL (130-200) L 09/20/17 06:00 LDL Cholesterol Direct 67 mg/dL (0-129) 09/20/17 06:00 HDL Cholesterol 27 mg/dL (29-60) L 09/20/17 06:00 Amylase 86 U/L (35-125) 09/19/17 19:11 Lipase 138 U/L (23-300) 09/19/17 19:11 25-OH Vitamin D Total 50.0 NG/ML (30.0-100.0) 09/22/17 08:00 Procalcitonin < 0.05 NG/ML (0.19-0.49) L 09/20/17 06:30 Free T4 1.16 ng/dL (0.78-2.19) 09/20/17 06:30 TSH 3rd Generation 0.23 mIU/mL (0.46-4.68) L 09/20/17 06:00 Venous Blood Potassium 4.4 mmol/L (3.6-5.2) 09/19/17 22:57 Urine Color Yellow (YELLOW) 09/19/17 19:46 Urine Appearance Slight-cloudy (CLEAR) 09/19/17 19:46 Urine pH 6.0 (4.7-8.0) 09/19/17 19:46 Ur Specific [place] 1.020 (1.005-1.035) 09/19/17 19:46 Urine Protein Negative mg/dL (<30 mg/dL) 09/19/17 19:46 Urine Glucose (UA) 100 mg/dL (NEGATIVE) H 09/19/17 19:46 Urine Ketones Negative mg/dL (NEGATIVE) 09/19/17 19:46 Urine Blood Moderate (NEGATIVE) H 09/19/17 19:46 Urine Nitrate Negative (NEGATIVE) 09/19/17 19:46 Urine Bilirubin Negative (NEGATIVE) 09/19/17 19:46 Urine Urobilinogen 0.2 E.U./dL (<1 E.U./dL) 09/19/17 19:46 Ur Leukocyte Esterase Negative Krish/uL (NEGATIVE) 09/19/17 19:46 Urine RBC 15 - 20 /hpf (0-2) 09/19/17 19:46 Urine WBC 2 - 5 /hpf (0-6) 09/19/17 19:46 Ur Epithelial Cells 4 - 5 /hpf (0-5) 09/19/17 19:46 Amorphous Sediment Small 07/03/18 19:46 Urine Opiates Screen Negative (NEGATIVE) 09/19/17 23:55 Urine Methadone Screen Negative (NEGATIVE) 09/19/17 23:55 Ur Barbiturates Screen Negative (NEGATIVE) 09/19/17 23:55 Ur Phencyclidine Scrn Negative (NEGATIVE) 09/19/17 23:55 Ur Amphetamines Screen Negative (NEGATIVE) 09/19/17 23:55 U Benzodiazepines Scrn Negative (NEGATIVE) 09/19/17 23:55 U Oth Cocaine Metabols Negative (NEGATIVE) 09/19/17 23:55 U Cannabinoids Screen Negative (NEGATIVE) 09/19/17 23:55 WALKER Screen Negative (Negative) 09/20/17 06:00 RPR Nonreactive (NONREACTIVE) 09/20/17 06:30 T.pallidum Ab (FTA-ABS) Nonreactive (Nonreactive) 09/20/17 06:30 HIV-1 Antibody TEST NOT PERFORMED 09/20/17 06:30 HIV-2 Antibody TEST NOT PERFORMED 09/20/17 06:30 HIV 1&2 Ag/Ab, 4th Gen Nonreactive (Nonreactive) 09/20/17 06:30 Ur L.pneumophila Ag Negative (NEGATIVE) 09/20/17 10:25 TB Test (QFT) Nil 0.03 IU/mL 09/22/17 07:59 TB Test Mitogen - Nil 6.99 IU/mL 09/22/17 07:59 TB Test TB - Nil 0.15 IU/mL 09/22/17 07:59 TB Test (QFT) Negative (Negative) 09/22/17 07:59 - Hospital Course Hospital Course: Patient is a 61 year old male with a past medical history of alcohol abuse and diabetes mellitus II who presented to the ED with complaints of upper abdominal pain. Patient stated that the pain began a few days prior and had increased in intensity. He described the pain as sharp and radiating toward the back and right flank. He also endorsed exacerbation upon inspiration along with occasional periods of diaphoresis. Pulmonary embolism was initially ruled out with CT chest/abd/pelvis was negative for PE; but however demonstrated emphysematous changes, atelectic and grounglass infiltrates, nonspecific mediastinal lymph nodes, There is approximately 50% stenosis of the proximal right renal artery. There is no significant stenosis or occlusion of the left renal artery. 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 Atherosclerosis and mural thrombus are identified the involving the iliac arteries bilaterally. There is approximately 50% stenosis of the right common and external iliac arteries. Stenoses are visualized of the left external and bilateral internal iliac arteries. There is a proximally 70% stenosis of the bilateral superficial femoral arteries proximally. Additional stenoses are identified of the bilateral proximal common femoral and deep femoral arteries, with atherosclerosis and mural thrombus as well as hemangiomas of liver. Tuberculosis was also thought to be an etiology of patient's symptoms therefore patient was placed on precautions pending first negative AFB culture. Once culture returned negative patient was able to start triple inhaler therapy for his COPD. Patient was also noted to have uncontrolled glucose levels during course of hospital stay. Due to his recent findings of peripheral vascular disease patient can no longer continue taking his metformin and must therefore refrain from use. As a result patient was started on glipizide. Patient was noted to follow a high carbohydrate diet when eating non hospital food, and was also educated on importance diet and exercise with respect to diabetes management. On labs patient was noted to have hypercalcemia which he will follow up with his primary care physician as outpatient. Patient was discharged with the following instructions: 1.Please follow up with your PMD Dr. Harrell within 3-5 days regarding this admission . 2.Please follow up with interventional radiologist Dr. Den Ralph regarding follow up and further evaluation of your peripheral vascular disease. You have been started on a new medication cilostazol; please take as prescribed. 3.Please do not take glucophage (metformin), this medication is not good for you considering your peripheral vascular disease. You have been started on a new medication for diabetes control; Glipizide. Please take as instructed. Also refrain from foods high in carbohydrates and sugars. 4.You were newly diagnosed with COPD, please begin taking your triple therapy inhaler as prescribed which includes: Duonebs, Brovana, and Pulmicort. 5.You were found to be hypercalcemic, please follow up with your PMD regarding this finding. 6.As discussed, liver hemangiomas were found on your CT abdomen/pelvis, please discuss with your PMD regarding this finding. 6.If symptoms return please go to your nearest emergency department. With resolving of symptoms, patient was in agreement with plan, and discharged. Case discussed with attending Dr. Vicenta Brower PGY2 Discharge Exam - Head Exam Head Exam: ATRAUMATIC, NORMAL INSPECTION, NORMOCEPHALIC - Eye Exam Eye Exam: EOMI, Normal appearance - ENT Exam ENT Exam: Mucous Membranes Moist - Respiratory Exam Respiratory Exam: Clear to PA & Lateral, UNREMARKABLE. absent: Wheezes, Respiratory Distress - Cardiovascular Exam Cardiovascular Exam: REGULAR RHYTHM, +S1, +S2 - GI/Abdominal Exam GI & Abdominal Exam: Normal Bowel Sounds, Unremarkable - Extremities Exam Extremities exam: normal inspection - Back Exam Back exam: NORMAL INSPECTION - Neurological Exam Neurological exam: Alert, CN II-XII Intact, Oriented x3 - Psychiatric Exam Psychiatric exam: Normal Affect, Normal Mood - Skin Skin Exam: Normal Color, Warm Discharge Plan - Discharge Medications Prescriptions: Albuterol/Ipratropium [Duoneb 3 mg/0.5 mg (3 ml) UD] 3 ml IH [id number] 30 Days #1 neb Arformoterol [Brovana] 15 mcg IH [id number] 30 Days #1 neb Aspirin [Aspirin Chewable] 81 mg PO DAILY #30 chew Atorvastatin [Lipitor] 40 mg PO DIN #30 tab Budesonide [Pulmicort Respules] 0.5 mg IH [id number] 30 Days #1 neb Cilostazol [Pletal] 100 mg PO BID #60 tab Gabapentin [Neurontin] 500 mg PO TID #42 cap GlipiZIDE [Glucotrol] 10 mg PO ACB #30 tab - Follow Up Plan Condition: FAIR Disposition: HOME/ ROUTINE Instructions: Pneumonia in Adults, Smoking: Not Just Harmful to Your Lungs and Heart, Dangers of Secondhand Smoke, Chest Pain (ED) Additional Instructions: 1.Please follow up with your PMD Dr. Harrell within 3-5 days regarding this admission . 2.Please follow up with interventional radiologist Dr. Den Ralph regarding follow up and further evaluation of your peripheral vascular disease. You have been started on a new medication cilostazol; please take as prescribed. 3.Please do not take glucophage (metformin), this medication is not good for you considering your peripheral vascular disease. You have been started on a new medication for diabetes control; Glipizide. Please take as instructed. Also refrain from foods high in carbohydrates and sugars. 4.You were newly diagnosed with COPD, please begin taking your triple therapy inhaler as prescribed which includes: Duonebs, Brovana, and Pulmicort. 5.You were found to be hypercalcemic, please follow up with your PMD regarding this finding. 6.As discussed, liver hemangiomas were found on your CT abdomen/pelvis, please discuss with your PMD regarding this finding. 6.If symptoms return please go to your nearest emergency department. Referrals: Julio Cesar Bhakta MD [Primary Care Provider] - Den Ralph MD [Staff Provider] - <Slade Yadav - Last Filed: 09/24/17 16:37> Provider - Provider Date of Admission: 09/19/17 22:15 Attending physician: Slade Yadav MD Primary care physician: Julio Cesar Bhakta MD Hospital Course - Lab Results Lab Results: Micro Results 09/21/17 23:05 Sputum Gram Stain - Final 09/21/17 23:05 Sputum Sputum Culture - Final NORMAL ORAL BALDEMAR 09/21/17 23:05 Other: Please Indicate Mycobacterial Culture - Preliminary Most Recent Lab Values WBC 6.6 10^3/ul (4.5-11.0) 09/24/17 07:00 RBC 5.20 10^6/uL (3.5-6.1) 09/24/17 07:00 Hgb 13.8 g/dL (14.0-18.0) L 09/24/17 07:00 Hct 42.1 % (42.0-52.0) 09/24/17 07:00 MCV 81.0 fl (80.0-105.0) 09/24/17 07:00 MCH 26.5 pg (25.0-35.0) 09/24/17 07:00 MCHC 32.8 g/dl (31.0-37.0) 09/24/17 07:00 RDW 13.5 % (11.5-14.5) 09/24/17 07:00 Plt Count 237 10^3/uL (120.0-450.0) 09/24/17 07:00 MPV 11.1 fl (7.0-11.0) H 09/24/17 07:00 Gran % 68.3 % (50.0-68.0) H 09/24/17 07:00 Lymph % (Auto) 23.4 % (22.0-35.0) 09/24/17 07:00 [place] % (Auto) 6.0 % (1.0-6.0) 09/24/17 07:00 Eos % (Auto) 2.0 % (1.5-5.0) 09/24/17 07:00 Baso % (Auto) 0.3 % (0.0-3.0) 09/24/17 07:00 Gran # 4.48 (1.4-6.5) 09/24/17 07:00 Lymph # (Auto) 1.5 (1.2-3.4) 09/24/17 07:00 [place] # (Auto) 0.4 (0.1-0.6) 09/24/17 07:00 Eos # (Auto) 0.1 (0.0-0.7) 09/24/17 07:00 Baso # (Auto) 0.02 K/mm3 (0.0-2.0) 09/24/17 07:00 PT 16.0 SECONDS (9.4-12.5) H 09/20/17 14:30 INR 1.39 (0.93-1.08) H 09/20/17 14:30 APTT 40.3 Seconds (25.1-36.5) H 09/20/17 14:30 pCO2 35 mm/Hg (35-45) 09/20/17 03:15 pO2 66.0 mm/Hg (80-100) L 09/20/17 03:15 HCO3 21.2 mmol/L (21-28) 09/20/17 03:15 ABG pH 7.39 (7.35-7.45) 09/20/17 03:15 ABG Total CO2 22.3 mmol.L (22-28) 09/20/17 03:15 ABG O2 Saturation 96.4 % (95-98) 09/20/17 03:15 ABG O2 Content 16.7 ML/dl (15-23) 09/20/17 03:15 ABG Base Excess -3.2 mmol/L (-2.0-3.0) L 09/20/17 03:15 ABG Hemoglobin 12.7 g/dL (11.7-17.4) 09/20/17 03:15 ABG Carboxyhemoglobin 2.7 % (0.5-1.5) H 09/20/17 03:15 POC ABG HHb (Measured) 3.5 % (0-5) 09/20/17 03:15 ABG Methemoglobin 0.3 % (0.0-3.0) 09/20/17 03:15 ABG O2 Capacity 17.3 mL/dl (16-24) 09/20/17 03:15 VBG pH 7.36 (7.32-7.43) 09/19/17 22:57 VBG pCO2 41.0 (40-60) 09/19/17 22:57 VBG HCO3 23.2 mmol/l (21-28) 09/19/17 22:57 VBG Total CO2 24.5 mmol.L (22-28) 09/19/17 22:57 VBG O2 Sat (Calc) 92.1 % (40-65) H 09/19/17 22:57 VBG Base Excess -2.2 mmol/L (0.0-2.0) L 09/19/17 22:57 VBG Potassium 4.4 mmol/L (3.6-5.2) 09/19/17 22:57 Hgb O2 Saturation 93.5 % (95.0-98.0) L 09/20/17 03:15 Sodium 136.0 mmol/L (132-148) 09/19/17 22:57 Chloride 106.0 mmol/L (98-107) 09/19/17 22:57 Glucose 110 mg/dl (75-110) 09/19/17 22:57 Lactate 0.7 mmol/L (0.7-2.1) 09/19/17 22:57 FiO2 21.0 % 09/20/17 03:15 Sodium 141 mmol/L (132-148) 09/24/17 07:00 Potassium 5.1 mmol/L (3.6-5.0) H 09/24/17 07:00 Chloride 105 mmol/L (98-107) 09/24/17 07:00 Carbon Dioxide 26 mmol/L (21-33) 09/24/17 07:00 Anion Gap 15 (10-20) 09/24/17 07:00 BUN 25 mg/dL (7-21) H 09/24/17 07:00 Creatinine 0.8 mg/dl (0.8-1.5) 09/24/17 07:00 Est GFR ( Amer) > 60 09/24/17 07:00 Est GFR (Non-Af Amer) > 60 09/24/17 07:00 POC Glucose (mg/dL) 245 mg/dL (65-110) H 09/24/17 11:16 Random Glucose 300 mg/dL (70-110) H 09/24/17 07:00 Hemoglobin A1c 7.4 % (4.2-6.5) H 09/20/17 07:24 Calcium 10.7 mg/dL (8.4-10.5) H 09/24/17 07:00 Phosphorus 2.5 mg/dL (2.5-4.5) 09/24/17 07:00 Magnesium 2.1 mg/dL (1.7-2.2) 09/24/17 07:00 Total Bilirubin 0.2 mg/dL (0.2-1.3) 09/24/17 07:00 AST 21 U/L (17-59) 09/24/17 07:00 ALT 30 U/L (7-56) 09/24/17 07:00 Alkaline Phosphatase 64 U/L (38-126) 09/24/17 07:00 Lactate Dehydrogenase 280 U/L (333-699) L 09/20/17 14:30 Total Creatine Kinase 93 U/L (35-230) 09/20/17 14:30 Troponin I < 0.01 ng/mL 09/20/17 14:30 C-Reactive Protein 40.80 mg/L (0.0-9.9) H 09/20/17 06:00 Total Protein 7.2 g/dL (5.8-8.3) 09/24/17 07:00 Albumin 4.0 g/dL (3.0-4.8) 09/24/17 07:00 Globulin 3.2 gm/dL 09/24/17 07:00 Albumin/Globulin Ratio 1.2 (1.1-1.8) 09/24/17 07:00 Triglycerides 108 mg/dL (35-160) 09/20/17 06:00 Cholesterol 119 mg/dL (130-200) L 09/20/17 06:00 LDL Cholesterol Direct 67 mg/dL (0-129) 09/20/17 06:00 HDL Cholesterol 27 mg/dL (29-60) L 09/20/17 06:00 Amylase 86 U/L (35-125) 09/19/17 19:11 Lipase 138 U/L (23-300) 09/19/17 19:11 25-OH Vitamin D Total 50.0 NG/ML (30.0-100.0) 09/22/17 08:00 Procalcitonin < 0.05 NG/ML (0.19-0.49) L 09/20/17 06:30 Free T4 1.16 ng/dL (0.78-2.19) 09/20/17 06:30 TSH 3rd Generation 0.23 mIU/mL (0.46-4.68) L 09/20/17 06:00 Venous Blood Potassium 4.4 mmol/L (3.6-5.2) 09/19/17 22:57 Urine Color Yellow (YELLOW) 09/19/17 19:46 Urine Appearance Slight-cloudy (CLEAR) 09/19/17 19:46 Urine pH 6.0 (4.7-8.0) 09/19/17 19:46 Ur Specific [place] 1.020 (1.005-1.035) 09/19/17 19:46 Urine Protein Negative mg/dL (<30 mg/dL) 09/19/17 19:46 Urine Glucose (UA) 100 mg/dL (NEGATIVE) H 09/19/17 19:46 Urine Ketones Negative mg/dL (NEGATIVE) 09/19/17 19:46 Urine Blood Moderate (NEGATIVE) H 09/19/17 19:46 Urine Nitrate Negative (NEGATIVE) 09/19/17 19:46 Urine Bilirubin Negative (NEGATIVE) 09/19/17 19:46 Urine Urobilinogen 0.2 E.U./dL (<1 E.U./dL) 09/19/17 19:46 Ur Leukocyte Esterase Negative Krish/uL (NEGATIVE) 09/19/17 19:46 Urine RBC 15 - 20 /hpf (0-2) 09/19/17 19:46 Urine WBC 2 - 5 /hpf (0-6) 09/19/17 19:46 Ur Epithelial Cells 4 - 5 /hpf (0-5) 09/19/17 19:46 Amorphous Sediment Small 09/19/17 19:46 Urine Opiates Screen Negative (NEGATIVE) 09/19/17 23:55 Urine Methadone Screen Negative (NEGATIVE) 09/19/17 23:55 Ur Barbiturates Screen Negative (NEGATIVE) 09/19/17 23:55 Ur Phencyclidine Scrn Negative (NEGATIVE) 09/19/17 23:55 Ur Amphetamines Screen Negative (NEGATIVE) 09/19/17 23:55 U Benzodiazepines Scrn Negative (NEGATIVE) 09/19/17 23:55 U Oth Cocaine Metabols Negative (NEGATIVE) 09/19/17 23:55 U Cannabinoids Screen Negative (NEGATIVE) 09/19/17 23:55 WALKER Screen Negative (Negative) 09/20/17 06:00 RPR Nonreactive (NONREACTIVE) 09/20/17 06:30 T.pallidum Ab (FTA-ABS) Nonreactive (Nonreactive) 09/20/17 06:30 HIV-1 Antibody TEST NOT PERFORMED 09/20/17 06:30 HIV-2 Antibody TEST NOT PERFORMED 09/20/17 06:30 HIV 1&2 Ag/Ab, 4th Gen Nonreactive (Nonreactive) 09/20/17 06:30 Ur L.pneumophila Ag Negative (NEGATIVE) 09/20/17 10:25 TB Test (QFT) Nil 0.03 IU/mL 09/22/17 07:59 TB Test Mitogen - Nil 6.99 IU/mL 09/22/17 07:59 TB Test TB - Nil 0.15 IU/mL 09/22/17 07:59 TB Test (QFT) Negative (Negative) 09/22/17 07:59 Attending/Attestation - Attestation I have personally seen and examined this patient.: Yes I have fully participated in the care of the patient.: Yes I have reviewed all pertinent clinical information, including history, physical exam and plan: Yes Notes (Text): 09/24/17 16:35 61 year old male with past medical history of diabetes and tobacco use who presented with complaint of right sided abdominal and chest pain. CT chest/abd/ pelvis was negative for PE; showed emphysematous changes, atelectic and grounglass infiltrates, nonspecific mediastinal lymph nodes, mural thrombus involving left common iliac artery, 50% stenosis of proximal right renal artery , 70% stenosis of bilateral superficial femoral arteries and hemangiomas of liver. Serial cardiac enzymes were negative and ACS was ruled out. Pulmonary evaluation was appreciated for CT findings and COPD. IR and vascular input was appreciated as well who recommended outpatient follow up. He was on antibiotics as per ID. He was counselled on smoking cessation. He is on fluids for hypercalcemia which improved. PTH was pending. Patient is discharged home to follow up with his pmd. Counselled on smoking cessation. Monitor calcium as outpatient and follow up PTH. Follow up with IR, Dr. Ralph. Slade Yadav MD Hospitalist.
--- NOTE | 2017-09-24 13:56 | PN ---
DATE: 09/24/2017 SUBJECTIVE: The patient is seen in bed, in no acute distress this morning, nontoxic. PHYSICAL EXAMINATION: VITAL SIGNS: Temperature is 98, blood pressure is 130/70, respiratory rate 16. HEENT: Unremarkable. NECK: Supple. LUNGS: Have decreased breath sounds. HEART: Normal S1, S2. ABDOMINAL: Soft, nontender. LABORATORY EXAMINATION: Reveals a white count of 6.6, hemoglobin of 13. Chemistries are noted and the patient's procalcitonin is less than 0.05 and urinalysis is noted and toxicology is negative. WALKER is negative. The patient's QuantiFERON is negative. Urine for Legionella is negative. HIV is negative. Microbiology, blood cultures are negative. The sputum cultures are pending. The patient's AFB is negative. Review of orders reveals the patient to be on p.o. Zithromax. The patient had abdominal MRI yesterday, which showed no evidence of cholelithiasis or cholecystitis. No evidence of enhancing mass in the liver and no evidence of any acute pathology. Dr. Yadav's note from yesterday is reviewed. ASSESSMENT AND PLAN: A 61-year-old male who was seen earlier today in 578 who is originally from [place] who has had no exposure to tuberculosis that he knows of. Admitted with bilateral infiltrates, community-acquired pneumonia with mural thrombus in the descending thoracic aorta in the patient who is diabetic with negative procalcitonin, negative cultures and negative AFB smears and negative QuantiFERON. May complete with p.o. Zithromax and needs to have followup imaging for resolution of infiltrates. If not pulmonary evaluation, a bronchoscopy is noted as outpatient. The patient's hypercalcemia is of concern. Must rule out underlying malignancy. Complete 5 days of Zithromax with followup imaging as outpatient for resolution of the infiltrates. Coleman Forrester MD
--- NOTE | 2017-09-24 17:01 | CP.PCM.PN ---
<Valery Melissa - Last Filed: 09/24/17 17:01> Subjective - Date & Time of Evaluation Date of Evaluation: 09/24/17 Time of Evaluation: 13:00 - Subjective Subjective: PGY5 PGY5 GI NOte LAte Entry Pt seen and examined bedside denies any abd pain no overnight events tolerating diet denies any fever, chills or diaphoresis ROS: 12 point ROS conducted, neg other than above Objective - Vital Signs/Intake and Output Vital Signs (last 24 hours): Temp Pulse Resp BP Pulse Ox 98.2 F 69 18 137/75 100 09/24/17 06:00 09/24/17 06:00 09/24/17 06:00 09/24/17 06:00 09/24/17 06:00 Intake and Output: 09/24/17 09/24/17 06:59 18:59 Intake Total 600 Balance 600 - Labs Labs: 09/24/17 07:00 09/24/17 07:00 PT 16.0 SECONDS (9.4-12.5) H 09/20/17 14:30 INR 1.39 (0.93-1.08) H 09/20/17 14:30 APTT 40.3 Seconds (25.1-36.5) H 09/20/17 14:30 - Constitutional Appears: Well, No Acute Distress - Head Exam Head Exam: ATRAUMATIC, NORMOCEPHALIC - Eye Exam Eye Exam: Normal appearance - ENT Exam ENT Exam: Mucous Membranes Moist, Normal Exam - Neck Exam Neck Exam: Normal Inspection - Respiratory Exam Respiratory Exam: Clear to Ausculation Bilateral, NORMAL BREATHING PATTERN. absent: Prolonged Expiratory Phase, Rhonchi, Wheezes, Respiratory Distress - Cardiovascular Exam Cardiovascular Exam: REGULAR RHYTHM, +S1, +S2 - GI/Abdominal Exam GI & Abdominal Exam: Soft, Normal Bowel Sounds. absent: Guarding, Rigid, Tenderness, Mass, Organomegaly, Rebound - Extremities Exam Extremities Exam: absent: Joint Swelling, Pedal Edema - Neurological Exam Neurological Exam: Alert, Awake, Oriented x3 - Psychiatric Exam Psychiatric exam: Normal Affect, Normal Mood - Skin Skin Exam: Dry, Intact, Normal Color, Warm Assessment and Plan - Assessment and Plan (Free Text) Assessment: 61 yo M with PMH of DMII, prior EtOH abuse (quit 10 yrs prior), and heavy tobacco use who [place] [facility] [place] complaint of RUQ pain radiating to back, now reported by patient as R chest pain radiating to back. GI was consulted due to reported suspected liver hemangiomas on CTA chest/abd/pelvis obtained on arrival. Now pending MRI with and without contrast to assess liver lesions. 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 Mild narrowing or stenosis of the proximal celiac artery. ~50% stenosis of the proximal right renal artery. ~70% stenosis of the bilateral superficial femoral arteries proximally. Scattered enhancing foci/lesions in liver, nonspecific, may represent atypical hemangiomas, not present on prior CT -MRI did not reveal any sig liver lesion -Likely COPD with blebs due to findings on Chest CT; defer to Pulm for management -Also followed by ID, Pulm; Vascular and IR consulted by primary team for mural thrombi and multiple arterial stenoses -okay to d/c from GI standpoint Patient seen, reviewed, and discussed with attending, Dr. Salomon <Marisol Salomon V - Last Filed: 09/25/17 00:55> Objective - Vital Signs/Intake and Output Vital Signs (last 24 hours): Temp Pulse Resp BP Pulse Ox 98.2 F 69 18 137/75 100 09/24/17 06:00 09/24/17 06:00 09/24/17 06:00 09/24/17 06:00 09/24/17 06:00 - Labs Labs: 09/24/17 07:00 09/24/17 07:00 PT 16.0 SECONDS (9.4-12.5) H 09/20/17 14:30 INR 1.39 (0.93-1.08) H 09/20/17 14:30 APTT 40.3 Seconds (25.1-36.5) H 09/20/17 14:30 Attending/Attestation - Attestation I have personally seen and examined this patient.: Yes I have fully participated in the care of the patient.: Yes I have reviewed all pertinent clinical information, including history, physical exam and plan: Yes Notes (Text): This is an addendum to GI progress report dictated by the GI Fellow.The patient was seen and examined earlier. Medical records, lab studies, imagings were reviewed. Last 24 hours events reviewed. Agreed with the above treatment plan as outlined in GI Fellow 's notes the with the addition of the following patient denies any abdominal complaints On examination abdomen softontender MRI scan was reviewed no focal hepatic lesion was found 09/25/17 00:51
--- NOTE | 2017-09-25 08:27 | PN ---
DATE: 09/22/2017 SUBJECTIVE: Patient is in bed, in no acute distress, nontoxic. PHYSICAL EXAMINATION: VITAL SIGNS: Temperature , respiratory rate 16. HEENT: Unremarkable. NECK: Supple. LUNGS: Have decreased breath sounds. HEART: Normal S1 and S2. ABDOMEN: Soft, nontender. LABORATORY DATA: Reveals a white count of 7.2, hemoglobin of 13, platelets of 205. Chemistries reveal BUN of 14, creatinine is 0.8. Procalcitonin is less than 0.05. Urinalysis is noted. Serology is negative. Cultures are negative. Sputum is pending. Patient had an x-ray of the femur . ASSESSMENT AND PLAN: This is a 61-year-old [place] male bilateral infiltrates, community-acquired pneumonia, mural thrombus in the descending thoracic aorta, and diabetic, day #3 of ceftriaxone and Zithromax, and normal procalcitonin. Coleman Forrester MD
--- NOTE | 2017-09-25 08:53 | PN ---
DATE: 09/23/2017 SUBJECTIVE: The patient is in bed, in no acute distress, nontoxic. PHYSICAL EXAMINATION: VITAL SIGNS: Temperature is 98, blood pressure is 151/60, respiratory rate 21, heart rate of 93. HEENT: Unremarkable. NECK: Supple. LUNGS: Decreased breath sounds. HEART: Normal S1, S2. ABDOMEN: Soft, nontender. LABORATORY EXAMINATION: Reveals the patient's white count of 6.6, hemoglobin 14. Chemistries are noted. Procalcitonin is less than 0.05. Urinalysis is noted. Immunology is noted. Serology is negative. note is reviewed. ASSESSMENT AND PLAN: A 61-year-old male originally from [place] seen early this morning, tuberculosis, presenting with bilateral infiltrates, bilateral community-acquired pneumonia, mural thrombus in the descending thoracic aorta in a patient who is diabetic, day #4 of Zithromax and ceftriaxone, may discontinue the ceftriaxone and complete with a 5-day of Zithromax. The patient's AFB smears pending. The patient also has an MRI of the abdomen and pelvis, which is also pending. The patient's procalcitonin is negative. The patient did have a CAT scan of the abdomen and chest thrombus was evaluated. We will follow with you. Coleman Forrester MD
== END 2017-09-24 14:22 | disposition home or self-care (01) | DRG 543 ==
LOC: ED 17:06 → ERH 22:15 → 2RSO 09-20 00:12 → 5RSO 09-22 19:32
PROVIDERS: ADMIT Internal Medicine; ATTEND Internal Medicine
PROC: 3E0F7GC Introduction of Other Therapeutic Substance into Respiratory Tract, Via Natural or Artificial Opening (ICD-10-PCS; principal; 2017-09-20)
DX: I51.3 Intracardiac thrombosis, not elsewhere classified (principal); J18.9 Pneumonia, unspecified organism; I74.5 Embolism and thrombosis of iliac artery; E11.42 Type 2 diabetes mellitus with diabetic polyneuropathy; E11.51 Type 2 diabetes mellitus with diabetic peripheral angiopathy without gangrene; J43.2 Centrilobular emphysema; F17.210 Nicotine dependence, cigarettes, uncomplicated; D18.03 Hemangioma of intra-abdominal structures; E83.52 Hypercalcemia